=== PATIENT | female | born 1965 ===

== ENCOUNTER 2020-06-09 07:51 | Outpatient (REF) | payer MEDICAID, SELFPAY ==
--- NOTE | ~2020-06-09 | MM_ITS ---
EXAMINATION: MM SCREENING DIGITAL BREAST TOMOSYNTHESIS, BILATERAL CLINICAL INFORMATION: Screening. Asymptomatic. Prior outside mammography from [place] currently unavailable. Family history breast cancer, mother, sister, cousin. The lifetime risk of breast cancer based on the Tyrer-Cuzick Model is 18%. COMPARISON: None. TECHNIQUE: Digital breast tomosynthesis is performed in both the craniocaudal and mediolateral oblique views along with computer-aided detection (CAD). Synthesized 2D images are generated from the tomosynthesis. Additional bilateral MLO views are provided. FINDINGS: There are scattered areas of fibroglandular density (ACR BI-RADS breast composition Category b). There are scattered parenchymal densities. No significant mass or architectural abnormality. No abnormal calcifications. The axilla and skin contours are unremarkable. History of prior outside mammography from [place] was made available, we will make comparison in an additional report. MM/MM tomosynthesis screening BI IMPRESSION: No mammographic evidence of malignancy. ASSESSMENT: BI-RADS 2: Benign RECOMMENDATION: Routine annual mammography screening. This patient's information was entered into a reminder system with a target due date for their next mammogram.
== END 2020-06-09 07:52 | disposition home or self-care (01) ==
LOC: HO.MAMMO 07:51
PROVIDERS: PCP Internal Medicine; Visit Provider Internal Medicine
DX: Z12.31 Encounter for screening mammogram for malignant neoplasm of breast (principal)
CPT/HCPCS: 77063; 77067

== ENCOUNTER 2022-09-27 15:13 | Outpatient (AMB) | payer MEDICAID, SELFPAY ==
--- NOTE | 2022-09-27 15:14 | MHC.OFFVIS ---
Intake Vital Signs 09/27/22 15:17 Height 5 ft 2 in Weight 197 lb 8.547 oz BMI 36.1 BP 110/58 L Blood Pressure Location Rt brachial Position Sitting Pulse 96 Pulse Source Pulse Oximeter Intake Visit Reasons: DM2 Intake Note: Patient here today for Diabetes type 2 New patient visit. For eye care:04/2022 For foot care:None POC- 287 mg/dl A1c- 9.4% Pump Servicer Required: Yes Pump Servicer Language: Well Service Pump Equipment Operator Name: Betty medical staff Information Interpreted: non-clinical & clinical Accompanied by: Daughter Allergies No Known Allergies Allergy (Verified 09/27/22 15:19) Medication List - Last Reconciled 09/27/22 by Dileep Almazna MD amoxicillin 500 mg PO Q8H clotrimazole 1% 1 appful vaginal BEDTIME PRN dulaglutide (Trulicity) mg subcut QWEEK estradiol 0.01%(0.1mg/gram) grams vaginal flash glucose scanning reader ([employer] An 2 [place]) As directed flash glucose sensor (FreeStyle An 2 Sensor kit) As directed fluconazole 150 mg PO Q3D ibuprofen 800 mg PO Q8H PRN insulin lispro subcut ketoconazole 2% topical 2XW metformin 1,000 mg PO BID mirabegron ER (Myrbetriq) 25 mg PO DAILY nirmatrelvir-ritonavir 300 mg (150 mg x 2)-100 mg (Paxlovid) 3 ea PO quetiapine 100 mg PO BEDTIME quetiapine 25 mg PO BID quetiapine 200 mg PO BEDTIME sertraline 150 mg PO DAILY sucralfate (Carafate) 10 mL PO Q6H sulfamethoxazole-trimethoprim 800-160 mg 1 tab PO Q12H tolterodine ER 4 mg PO QAM trazodone 100 mg PO BID venlafaxine 37.5 mg PO BID venlafaxine ER 75 mg PO DAILY venlafaxine ER 37.5 mg PO DAILY HPI HPI Comments History of Present Illness Details 57 YO F who is seen in consultation for T2DM at the request of PCP. Initially diagnosed with T2DM in 6 yrs . Was initially started on treatment with []. Current regimen metformin 1000 mg b.i.d. Trulicity 4.5 mg Qwkly . Farxiga 10 mg QD Lantus 55 units Humalog 40 units before lunch and dinner An download shows she is using the sensor 61% of the time average glucose is 262 with G mi of 9.6% and variability of 32.2%. 20% in target range and 80% hyperglycemia with no hypoglycemia. Trend is towards post-breakfast hyperglycemia and post-dinner hypoglycemia Reports low sugars Yes .Before bedtime Treats lows with drink coke or candy . Checks sugar after to ensure it is rising. Treats 10 min after treating Most recent A1C 9.4 , . Family history of T2DM in mother sister Type 2 DM . Has eyes checked yearly, last eye exam 6 mos ago , [denies] retinopathy. Denies neuropathy,not, sees podiatry. Denies nephropathy, on MALLORY/ARB Lisinopril . UAC [] as measured on []. Not Has HLD,Not on statin. Denies CAD. Not Had diabetes education. [facility] Medical History (Updated 09/27/22 @ 15:24 by Dileep Almanza MD) Uncontrolled type 2 diabetes mellitus with hyperglycemia Surgical History (Updated 09/27/22 @ 15:29 by Sangeetha Duarte) History of section History of removal of cyst History of surgery Family History (Updated 09/27/22 @ 15:31 by Sangeetha Duarte) Mother Medical history unknown Father Cancer Social History Alcohol intake: never Patient Tobacco Use Status: Current someday Tobacco user Physical Exam Absence of Cushingoid features. Absence of acromegalic features. Neck exam reveals nl size thyroid about 15 gms. No thyroid nodules palpable. No carotid bruits present. Lungs CTA. Heart S1 S2, Reg R/R. No M/R/ G. Skin exam reveals absence of vitiligo or acanthosis nigricans. Abdominal exam reveals Soft NT/ND with NA BS. No organomegaly present. Neck Other: . Extrem Other: Visual exam of foot performed. No ulcerations or open lesions. No onchomycosis, no callouses.Pulses 2 + distally Sensation intact to monofilament exam. Vibratory sensation sensed is intact with 128 Hz tuning fork Results AMB Hemoglobin A1c AMB Hemoglobin A1c 9.4 % Last Edit by Sangeetha Duarte on 09/27/22 15:46 Assessment & Plan Assessment & Plan (1) Uncontrolled type 2 diabetes mellitus with hyperglycemia: Code(s): E11.65 - Type 2 diabetes mellitus with hyperglycemia Plan: This is a 57-year-old female with a history of type 2 diabetes being treated with with poor glycemic control and no known microvascular or macrovascular complications. The plan is change Trulicity to Ozempic for trial at this does not work or is not tolerated, try Mounjaro. Went over side effects of Ozempic and. Mounjaro including but not limited to nausea, vomiting risk of pancreatitis Will refer patient to Diabetes Education and yarn worker. Will check basic metabolic panel, lipid profile, microalbumin to creatinine ratio. Went over correlation of poor glycemic control to development and progression of complications Mounjaro 2.5 mg samples given to patient lot number [id number] C expiration date 02/21/2024 Orders: Orders Basic Metabolic Panel Today E11.65 - Type 2 diabetes mellitus with hyperglycemia Lipid Panel Today E11.65 - Type 2 diabetes mellitus with hyperglycemia Microalbumin, Random (w Creat) Today E11.65 - Type 2 diabetes mellitus with hyperglycemia AMB Hemoglobin A1c Today E11.65 - Type 2 diabetes mellitus with hyperglycemia Referrals Diabetes Education Referral E11.65 - Type 2 diabetes mellitus with hyperglycemia Nutrition/Dietitian Referral E11.65 - Type 2 diabetes mellitus with hyperglycemia Medications: New semaglutide (Ozempic) 0.5 mg (0.736 mL) subcut QWEEK 3 mL 5RF insulin lispro 45 units before breakfast, 45 units before lunch and 30 units before supper subcutaneously; 4 weeks 45 mL 4RF Coding Level of Care Code New Pt Level 5 (01278) Diagnoses Uncontrolled type 2 diabetes mellitus with hyperglycemia E11.65 Time Spent (min) 60 Comment A total of 60 minutes was spent reviewing chart, seeing patient and dictating
[2022-09-27 15:17] VITALS: BP 110/58; PULSE 96; BMI 36.1
[2022-09-27 15:40] LABS: Glucose, Whole Blood 287 mg/dL (60-115)
== END 2022-09-27 16:24 | disposition home or self-care (01) ==
PROVIDERS: PCP Internal Medicine; Visit Provider Internal Medicine Endocrinology, Diabetes & Metabolism
DX: E11.65 Type 2 diabetes mellitus with hyperglycemia (principal)
CPT/HCPCS: 99205

== ENCOUNTER → 2022-09-27 15:13 | Outpatient (BNVA) | payer MEDICAID, SELFPAY | PROVIDERS: PCP Internal Medicine; Visit Provider Internal Medicine Endocrinology, Diabetes & Metabolism | DX: E11.65 Type 2 diabetes mellitus with hyperglycemia (principal); Z79.4 Long term (current) use of insulin; Z83.3 Family history of diabetes mellitus | CPT/HCPCS: 82947; 83036; 99202 ==

== ENCOUNTER 2022-10-25 12:22 | Outpatient (REF) | payer MEDICAID, SELFPAY ==
--- NOTE | ~2022-10-25 | XR_ITS ---
EXAMINATION: XR SHOULDER, LEFT CLINICAL INFORMATION: Reason for Exam PAIN COMPARISON: None TECHNIQUE: Four views of the shoulder. FINDINGS: No acute fracture or dislocation. Mild degenerative changes of the acromioclavicular and glenohumeral joints with degenerative spurring. Calcification on the lateral aspect of the humeral head may reflect sequelae of calcific tendinitis. Soft tissues are unremarkable. XR/XR shoulder LT min 2V IMPRESSION: 1. No acute fracture or dislocation. 2. Mild degenerative changes of the shoulder. Calcification on the lateral aspect of the humeral head may reflect sequelae of calcific tendinitis.
[2022-10-25 13:05] LABS: MANUAL DIFF FLAG NO
[2022-10-25 13:30] LABS: Estimated Average Glucose 220 mg/dL; Hemoglobin A1c % 9.3 % (<6.0)
[2022-10-25 13:35] LABS: Basophils Percent Auto 0.8 % (0-2); Eosinophils Absolute Auto 0.1 X10*3/uL (0.0-0.4); Eosinophils Percent Auto 2.5 % (0-4); Hematocrit 40.3 % (37.0-47.0); Hemoglobin 13.4 g/dl (12.0-16.0); Imm Gran Abs Auto 0.02 X10*3/uL (0.00-0.03); Imm Gran Pct Auto 0.4 % (0.0-0.4); Lymphocytes Absolute Auto 1.7 X10*3/uL (1.2-4.9); Lymphocytes Percent Auto 32.9 % (20-40); Mean Corpuscular HGB Conc 33.3 g/dl (31.0-35.0); Mean Corpuscular Hemoglobin 29.5 pg (27.0-33.0); Mean Corpuscular Volume 88.8 fL (80.0-98.0); Mean Platelet Volume 11.1 fL (9.4-12.3); Monocytes Absolute Auto 0.3 X10*3/uL (0.1-1.2); Monocytes Percent Auto 5.2 % (2-11); Neutrophils Percent Auto 58.2 % (45-73); Platelet Count 225 X10*3/uL (160-400); Red Blood Count 4.54 X10*6/uL (4.20-5.50); Red Cell Distribution Width 11.9 % (11.0-16.0); White Blood Count 5.2 X10*3/uL (4.8-10.8)
[2022-10-25 13:59] LABS: Microalbum/Creatinine Ratio Ur 7.6 ug/mg cr (<30)
[2022-10-25 14:13] LABS: Alanine Aminotransferase 13 U/L (0-31); Albumin Level 4.1 g/dL (3.5-5.0); Alkaline Phosphatase 82 U/L (39-117); Anion Gap 12 (12-20); Aspartate Amino Transferase 12 U/L (5-31); Bilirubin Total 0.5 mg/dL (0.0-1.0); Blood Urea Nitrogen 11 mg/dL (9-16); Calcium 10.3 mg/dL (8.4-10.2); Carbon Dioxide 27 mmol/L (22-29); Chloride 103 mmol/L (96-108); Cholesterol 208 mg/dL (<200); Estimated Glomerular Filt Rate > 60; Glucose Random 260 mg/dL (60-115); HDL Cholesterol 49 mg/dL (>40); LDL Cholesterol Calculated 132 mg/dL (<100); Potassium 4.1 mmol/L (3.3-5.1); Sodium 138 mmol/L (135-145); Total Protein 7.3 g/dL (6.5-8.0); Triglycerides 137 mg/dL (<150)
[2022-10-25 14:19] LABS: TSH reflex Free T4 1.64 uIU/mL (0.32-4.0); Vitamin D 25-OH Total 23.8 ng/mL (>30)
[2022-10-25 14:36] LABS: Folate 12.4 ng/mL (> or = 4.0); Vitamin B12 349 pg/mL (200-900)
[2022-10-25 15:44] LABS: CT PCR NOT DETECTED (Not Detect.); NG PCR NOT DETECTED (Not Detect.)
[2022-10-26 09:25] LABS: ~HepC Num1 5.08 S/CO (0.00-0.79); ~Hepatitis C Antibody Reactive (Nonreactive)
[2022-10-26 09:26] LABS: HBS Num1 0.12 mIU/mL (0-7.99); HBc Num1 0.04 S/CO (0.00-0.79); HBsAGNum1 0.34 S/CO (0.00-0.99); HIV AB/AG Nonreactive (Nonreactive); HIV Num 1 0.05 S/CO (0.00-0.99); Hepatitis B Core Antibody Nonreactive (Nonreactive); Hepatitis B Surface Antigen Negative (Negative); ~Hepatitis B Surface Antibody NONREACTIVE (Nonreactive)
[2022-10-26 09:29] LABS: Syphilis Screen Nonreactive (Nonreactive)
[2022-10-30 17:24] LABS: HCV Log PCR <1.18 NOT DETECTED Log IU/mL (NOT DETECTED); HepC Viral Load <15 NOT DETECTED IU/mL (NOT DETECTED)
== END 2022-10-25 12:23 | disposition home or self-care (01) ==
LOC: HO.HHCL 12:22
PROVIDERS: Visit Provider Student in an Organized Health Care Education/Training Program
DX: Z00.00 Encounter for general adult medical examination without abnormal findings (principal); Z11.4 Encounter for screening for human immunodeficiency virus [HIV]; Z11.3 Encounter for screening for infections with a predominantly sexual mode of transmission; M25.512 Pain in left shoulder
CPT/HCPCS: 0353U; 73030; 80053; 80061; 82043; 82306; 82570; 82607; 82746; 83036; 84443; 85025; 86704; 86706; 86780; 86803; 87340; 87389; 87522

== ENCOUNTER 2022-10-29 14:44 | Outpatient (AMB) | payer MEDICAID, SELFPAY ==
--- NOTE | 2022-10-29 15:33 | A.OFFVIS_ITS ---
Intake Intake Visit Reasons: Type 2 DM w An Production Sound Mixer Required: Yes Production Sound Mixer Language: Correction Officer [place] [facility] [place] [facility] [place]ies No Known Allergies Allergy (Verified 09/27/22 15:19) HPI Comprehensive Diabetes Asmnt Most Recent Diabetes Results: Microalb/Creat Ratio 7.6 ug/mg cr (<30) 10/25/22 Cholesterol 208 mg/dL (<200) H 10/25/22 HDL Cholesterol 49 mg/dL (>40) 10/25/22 Triglycerides 137 mg/dL (<150) 10/25/22 Creatinine 0.71 mg/dL (0.5-1.4) 10/25/22 Blood Urea Nitrogen 11 mg/dL (9-16) 10/25/22 Sodium 138 mmol/L (135-145) 10/25/22 Potassium 4.1 mmol/L (3.3-5.1) 10/25/22 Chloride 103 mmol/L (96-108) 10/25/22 Carbon Dioxide 27 mmol/L (22-29) 10/25/22 Calcium 10.3 mg/dL (8.4-10.2) H 10/25/22 AST 12 U/L (5-31) 10/25/22 ALT 13 U/L (0-31) 10/25/22 Total Protein 7.3 g/dL (6.5-8.0) 10/25/22 Albumin 4.1 g/dL (3.5-5.0) 10/25/22 [facility] Medical History (Updated 09/27/22 @ 15:24 by Dileep Almanza MD) Uncontrolled type 2 diabetes mellitus with hyperglycemia Surgical History History of section History of removal of cyst History of surgery Family History Mother Medical history unknown Father Cancer Social History Alcohol intake: never Patient Tobacco Use Status: Current someday Tobacco user Assessment & Plan Assessment & Plan (1) Uncontrolled type 2 diabetes mellitus with hyperglycemia: Code(s): E11.65 - Type 2 diabetes mellitus with hyperglycemia Plan: Learning objectives: The patient was provided with verbal and written education on the following topics as outlined below. The patient met all learning objectives and was able to verbalize understanding and provide teach back of education topics discussed . The patient was provided with the opportunity to ask questions and all questions were answered. Patient Assessment Assess patient education level/literacy/barriers, patient expressed she was having difficulty following instructions on how to read food labels. Stating she found him confusing. Recommended patient to use measuring cups for carbohydrate portions of food instructed patient that if she uses half cup and cup measures she can not estimate the carbohydrate content most foods that contain carbohydrates with list of carbohydrates provided at visit Patient questions/concerns, patient reports she has been diagnosed with type 2 diabetes for approximately 6 years. Patient's last A1c 9.3% on 10/25/2022. Patient at visit with her daughter. What is Diabetes? Pathophysiology How the body produces and uses insulin Identify type of DM Risk factors Signs of Diabetes Brief overview of Diabetes Management Monitoring blood sugar Following a meal plan Regular exercise Maintaining a healthy weight Taking medication as needed Members of the care team (PCP, RN, MA, RD, CDE, director print) Blood glucose monitoring When/how often to test Target blood sugar ranges Patient ran out of glucose sensors, prescription for glucose sensor sent to [facility] at patient's request Introduction to Nutrition Importance of healthy diet in managing DM Diet is personalized to individual preference Review patient?s regular diet/food preferences Who prepares meals/does food shopping/ Dining out?/ Barriers? How diet effects glucose Eating 3 balanced meals a day with small, healthy snacks between meals Review food groups Carbohydrates: What is a carbohydrate/Which food/food groups are considered carbohydrates Effect of carbohydrates on blood glucose Portion sizes Reading food labels Basic carb counting (if applicable per nursing assessment) Plate method Meal planning Recommendations: Follow plate method, consistent carbs and read nutritional labels. Smart Goal: Patient will keep carbohydrate portions at meals from 30-45 g per meal Educational Materials: The patient was provided with the following written educational materials: Planning Healthy Meals Handout in Bahamian Patient Response to instructions: Comprehension of Instructions: Fair Readiness to make changes: Contemplation How confident they feel about making changes: Fair . Medications: Refilled flash glucose sensor (FreeStyle An 2 Sensor kit) As directed change every 14 days PRN 2 ea 5RF diabetes mellitus Patient Instructions: Seguimiento con un educador en diabetes en 4 meses despu?s de la siguiente A1c Incluir actividad diaria regular. ADA recomienda 30 minutos de ejercicio 5 d?as a la semana. P?rdida de peso, hable con el PCP o el cardi?logo antes de comenzar un nuevo plan. Mida el nivel de az?car en la afia seg?n las indicaciones; Ayuno y comida m?s vince de 2hpp. Observe las tendencias en los resultados. Utilice los resultados y eval?e c?mo los alimentos, la actividad f?mehnaz y los medicamentos afectan los resultados de az?car en la afia. Lleve el gluc?metro o CGM a la pr?xima visita. Conocer los medicamentos para la diabetes, marmolejo acci?n, los efectos secundarios, la eficacia, la toxicidad, la dosis prescrita, el momento y la frecuencia de administraci?n apropiados, el efecto de las dosis olvidadas y retrasadas y las instrucciones de almacenamiento, viaje y seguridad. T?cnicas de resoluci?n de problemas para el seguimiento de episodios de hipo/hiperglucemia y tratamientos. Coding Level of Care Code Est Pt Level 1 (59542) Diagnoses Uncontrolled type 2 diabetes mellitus with hyperglycemia E11.65
== END 2022-10-29 15:40 | disposition home or self-care (01) ==
PROVIDERS: PCP Internal Medicine; Visit Provider Registered Nurse Diabetes Educator
DX: E11.65 Type 2 diabetes mellitus with hyperglycemia (principal)

== ENCOUNTER → 2022-10-29 14:44 | Outpatient (BNVA) | payer MEDICAID, SELFPAY | PROVIDERS: PCP Internal Medicine; Visit Provider Registered Nurse Diabetes Educator | DX: E11.65 Type 2 diabetes mellitus with hyperglycemia (principal) | CPT/HCPCS: 99211 ==

== ENCOUNTER 2022-11-08 12:15 | Outpatient (REF) | payer MEDICAID, SELFPAY | END 2022-11-08 12:16 | disposition home or self-care (01) | LOC: HO.MAMMO 12:15 | PROVIDERS: PCP Student in an Organized Health Care Education/Training Program; Visit Provider Student in an Organized Health Care Education/Training Program | DX: Z12.31 Encounter for screening mammogram for malignant neoplasm of breast (principal) | CPT/HCPCS: 77063; 77067 ==

== ENCOUNTER → 2022-11-08 12:30 | Outpatient (BNV) | payer MEDICAID, SELFPAY | PROVIDERS: PCP Student in an Organized Health Care Education/Training Program; Visit Provider Radiology Diagnostic Radiology | DX: Z12.31 Encounter for screening mammogram for malignant neoplasm of breast (principal) | CPT/HCPCS: 77063; 77067 ==

== ENCOUNTER 2023-01-03 15:04 | Outpatient (AMB) | payer MEDICAID, SELFPAY ==
--- NOTE | 2023-01-03 15:06 | MHC.OFFVIS ---
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 Patient reports having a lot of pain in her bone not in her muscle. She states that her ROM is limited which causes her a lot of pain. Allergies No Known Allergies Allergy (Verified 01/03/23 15:07) HPI STOREROOM SUPERVISOR-Chronic Left shoulder pain HPI Details 57-year-old female, who is [place] speaking, presents in the office today, as a new patient, for left shoulder pain. She states her ROM is limited due to pain in the shoulder. She states she is not able to reach behind her back. She states she was diagnosed with bursitis when in [place]. She states she did not want to have cortisone injections but did attend physical therapy. Patient has a history significant for diabetes mellitus. [facility] Medical History (Updated 01/03/23 @ 15:15 by Mercedes Sage) Uncontrolled type 2 diabetes mellitus with hyperglycemia Surgical History History of section History of removal of cyst History of surgery Family History Mother Medical history unknown Father Cancer Social History Alcohol intake: never Patient Tobacco Use Status: Current someday Tobacco user Review of Systems Const All systems reviewed & are unremarkable except as noted in HPI and below Physical Exam Const General: cooperative and no acute distress Orientation/consciousness: patient oriented x3 Resp Effort & Inspection: normal respiratory effort and able to speak in complete sentences Cardio Peripheral pulses: Peripheral pulses 2+ throughout Skin General skin exam: no rashes or lesions noted Neuro General: patient oriented x3 Extrem Other: Left shoulder: Forward flexion to 90 degrees. Abduction to 45 degrees. Able to reach the greater trochanter. External rotation to neutral. Pain with cross-body reach. Unable to assess drop arm or empty can due to patient guarding and unwilling to perform ROM to adequately assess these specialty test. NVI. Assessment & Plan Assessment & Plan (1) Adhesive capsulitis of left shoulder: Code(s): M75.02 - Adhesive capsulitis of left shoulder (2) Diabetes mellitus: Code(s): E11.9 - Type 2 diabetes mellitus without complications (3) Calcific tendonitis of left shoulder: Code(s): M75.32 - Calcific tendinitis of left shoulder Plan Ms. Mcmahan is a 57-year-old female, who is [place] speaking, presents in the office today, as a new patient, for left shoulder pain. She states her ROM is limited due to pain in the shoulder. She states she is not able to reach behind her back. She states she was diagnosed with bursitis when in [place]. She states she did not want to have cortisone injections but did attend physical therapy. Patient has a history significant for diabetes mellitus. I have recommended that due to not wanting to try cortisone injections the next step would be physical therapy for ROM and inflammation management. Follow up will be in 6-8 weeks for a ROM check, or sooner if needed. X-rays of the left shoulder, obtained on 10/25/2022, revealed: 1. No acute fracture or dislocation. 2. Mild degenerative changes of the shoulder. Calcification on the lateral aspect of the humeral head may reflect sequelae of calcific tendinitis. Orders: Orders PT Evaluation and Treatment Today E11.65 - Type 2 diabetes mellitus with hyperglycemia, M75.02 - Adhesive capsulitis of left shoulder Patient Instructions: Scribed for Nga Cerda PA-C by Mercedes Sage medical logistics specialist, on 01/03/2023 at 3:05 pm, EST. Coding Level of Care Code New Pt Level 4 (19241) Diagnoses Adhesive capsulitis of left shoulder M75.02 Diabetes mellitus E11.9 Calcific tendonitis of left shoulder M75.32
== END 2023-01-03 15:20 | disposition home or self-care (01) ==
PROVIDERS: PCP Student in an Organized Health Care Education/Training Program; Visit Provider Physician Assistant
DX: M75.02 Adhesive capsulitis of left shoulder (principal); E11.9 Type 2 diabetes mellitus without complications; M75.32 Calcific tendinitis of left shoulder
CPT/HCPCS: 99204

== ENCOUNTER → 2023-01-03 15:04 | Outpatient (BNVA) | payer MEDICAID, SELFPAY | PROVIDERS: PCP Student in an Organized Health Care Education/Training Program; Visit Provider Physician Assistant | DX: M75.02 Adhesive capsulitis of left shoulder (principal); M75.32 Calcific tendinitis of left shoulder; E11.9 Type 2 diabetes mellitus without complications | CPT/HCPCS: 99212 ==

== ENCOUNTER 2023-02-13 11:39 | Outpatient (AMB) | payer MEDICAID, SELFPAY ==
--- NOTE | 2023-02-13 11:43 | MHC.AMNUTRGE ---
Intake VS Expanded 02/13/23 11:44 02/24/23 12:05 Height 5 ft 2 in 5 ft 2 in Weight 197 lb 8.547 oz 198 lb BMI 36.1 36.2 Intake Visit Reasons: dm/LVM Allergies No Known Allergies Allergy (Verified 01/03/23 15:07) HPI Nutrition Presentation Details Pt presents for MNT for T2DM, Pt was referred by Dr. Almanza, tool/die maker food frequency: Fish/seafood: 0x/wk dairy: no milk, no yogurts, pudding/ice cream. cheese 1-2 x/wk vegetables: 3 x/wk fruits: not including fruit drinks: >6 oz/d starches: complex/simple carb> 20 serving/d physical activity: 4 x/wk , 30-45 minutes ( ETOH: not including Smoking: denies (stopped 3 months ago) DRV-Coqybhy-Qs.Jeor Equation Height 5 ft 2 in Weight 198 lb Resting Metabolic Rate 1425.26 Calculated Activity Level Sedentary Calories Needed to Maintain Weight 1710.31 Diagnosis Nutrition problem #1 excessive energy intake As related to (etiology) #1 diagnosis As evidenced by (sign/symptom) #1 knowledge deficit of diet Most Recent Diabetes Results: Microalb/Creat Ratio 7.6 ug/mg cr (<30) 10/25/22 Cholesterol 208 mg/dL (<200) H 10/25/22 HDL Cholesterol 49 mg/dL (>40) 10/25/22 Triglycerides 137 mg/dL (<150) 10/25/22 Creatinine 0.71 mg/dL (0.5-1.4) 10/25/22 Blood Urea Nitrogen 11 mg/dL (9-16) 10/25/22 Sodium 138 mmol/L (135-145) 10/25/22 Potassium 4.1 mmol/L (3.3-5.1) 10/25/22 Chloride 103 mmol/L (96-108) 10/25/22 Carbon Dioxide 27 mmol/L (22-29) 10/25/22 Calcium 10.3 mg/dL (8.4-10.2) H 10/25/22 AST 12 U/L (5-31) 10/25/22 ALT 13 U/L (0-31) 10/25/22 Total Protein 7.3 g/dL (6.5-8.0) 10/25/22 Albumin 4.1 g/dL (3.5-5.0) 10/25/22 [facility] Medical History (Updated 01/03/23 @ 15:15 by Mercedes Sage) Uncontrolled type 2 diabetes mellitus with hyperglycemia Surgical History History of section History of removal of cyst History of surgery Family History Mother Medical history unknown Father Cancer Social History Alcohol intake: never Patient Tobacco Use Status: Current someday Tobacco user Assessment & Plan Assessment & Plan (1) Uncontrolled type 2 diabetes mellitus with hyperglycemia: Code(s): E11.65 - Type 2 diabetes mellitus with hyperglycemia Plan: Wt: 90 Kg (01/2023 ) Est kcal needs as per MSJ: 1700 (40% carb, 30% protein/fat) Est fluid needs as per 30 ml/d: 2700 Est prot per day as per 1 g/kg bw: 90 Recommend fiber intake : 8-10 g per day and gradually increase to 25-28 g per day for women and 35-38 g for men or as tolerated Recommend sodium intake per day : less than 1500 mg less than 2000 mg Educated patient on: ( R = reviewed V = verbalizes understanding N/R = needs review N/A = not applicable Food sources of carbohydrate, adequate serving sizes and its role in various health conditions: R Differences between complex carbohydrates a simple carbohydrates, role of fiber in diet: R Lean protein sources of foods: R Differences between types of fats and role in diet (mono on saturated fat fatty acids, saturated fatty acids, trans fats): N/R Food sources of sodium in salt and healthy modifications for heart health in kidney health: N/R Vitamins and minerals: R Healthy plate method concept: R Physical activity: Benefits a precaution: R Hypoglycemia protocol (rule of 15): N/R Dietary prevention of Hyperglycemia: R V Patient Instructions: Follow healthy plate method at dinner. Work on reducing your total carbohydrate at meal Reduce carbs to less than 45 g at breakfast and less than 60 at lunch /dinner keep hydrated by having water/low sugar beverages Coding Level of Care Code Nutr Indiv Intake (09934) Diagnoses Uncontrolled type 2 diabetes mellitus with hyperglycemia E11.65 Time Spent (min) 30
[2023-02-13 11:44] VITALS: BMI 36.1
[2023-02-24 12:05] VITALS: BMI 36.2
== END 2023-02-13 12:29 | disposition home or self-care (01) ==
PROVIDERS: PCP Student in an Organized Health Care Education/Training Program; Visit Provider Dietitian, Registered
DX: E11.65 Type 2 diabetes mellitus with hyperglycemia (principal)

== ENCOUNTER → 2023-02-13 11:39 | Outpatient (BNVA) | payer MEDICAID, SELFPAY | PROVIDERS: PCP Student in an Organized Health Care Education/Training Program; Visit Provider Dietitian, Registered | DX: E11.65 Type 2 diabetes mellitus with hyperglycemia (principal) | CPT/HCPCS: 97802 ==

== ENCOUNTER 2023-04-29 12:56 | Outpatient (AMB) | payer MEDICAID, SELFPAY ==
[2023-04-29 13:07] VITALS: BP 126/74; PULSE 71; BMI 35.5
--- NOTE | 2023-04-29 13:07 | MHC.OFFVIS ---
Intake Vital Signs 04/29/23 13:07 Height 5 ft 2 in Weight 194 lb 0.108 oz BMI 35.5 BP 126/74 Blood Pressure Location Lt brachial Position Sitting Pulse 71 Pulse Source Pulse Oximeter Intake Visit Reasons: Type 2 DM An-confirmed Intake Note: Patient present today to follow up on Type 2 Diabetes Mellitus. Patient receives DME supplies through: Pharmacy Last Diabetic Eye exam: 04/2023 Last Podiatry Visit: Doesn't have one. Random Glucose: 315 mg/dl HgA1C: 10.6% Consulting Utility Forester Required: Yes Consulting Utility Forester Language: Interventional Tech Name: Luis M medical staff Information Interpreted: non-clinical & clinical Accompanied by: Daughter Allergies No Known Allergies Allergy (Verified 04/29/23 13:14) Medication List - Last Reconciled 04/29/23 by Dileep Almanza MD amoxicillin 500 mg PO Q8H clotrimazole 1% 1 appful vaginal BEDTIME PRN estradiol 0.01%(0.1mg/gram) grams vaginal flash glucose scanning reader ([employer]Style An 2 [place]) As directed flash glucose sensor (FreeStyle An 2 Sensor kit) As directed change every 14 days fluconazole 150 mg PO Q3D ibuprofen 800 mg PO Q8H PRN insulin lispro 45 units before breakfast, 45 units before lunch and 30 units before supper subcutaneously; 4 weeks ketoconazole 2% topical 2XW metformin 1,000 mg PO BID mirabegron ER (Myrbetriq) 25 mg PO DAILY nirmatrelvir-ritonavir 300 mg (150 mg x 2)-100 mg (Paxlovid) 3 ea PO quetiapine 100 mg PO BEDTIME quetiapine 25 mg PO BID quetiapine 200 mg PO BEDTIME sertraline 150 mg PO DAILY sucralfate (Carafate) 10 mL PO Q6H sulfamethoxazole-trimethoprim 800-160 mg 1 tab PO Q12H tirzepatide (Mounjaro) 2.5 mg (0.5 mL) subcut QWEEK tolterodine ER 4 mg PO QAM trazodone 100 mg PO BID venlafaxine 37.5 mg PO BID venlafaxine ER 75 mg PO DAILY venlafaxine ER 37.5 mg PO DAILY HPI HPI Comments History of Present Illness Details 58 YO F who is seen in consultation for T2DM at the request of PCP. Initially diagnosed with T2DM in 6 yrs . Was initially started on treatment with []. Current regimen metformin 1000 mg b.i.d. Mounjaro 2.5 mg Qwkly Farxiga 10 mg QD Lantus 52 units Humalog 40 units before lunch and dinner Unfortunately, patient did not bring sensor or glucometer follow-up visit Reports low sugars Yes .Before bedtime Treats lows with drink coke or candy . Checks sugar after to ensure it is rising. Treats 10 min after treating Family history of T2DM in mother sister Type 2 DM . Has eyes checked yearly, last eye exam 1 mo ago , [denies] retinopathy. Denies neuropathy,not, sees podiatry. Denies nephropathy, on MALLORY/ARB Lisinopril . UAC [] as measured on []. Not Has HLD,Not on statin. Denies CAD. Not Had diabetes education. [facility] Medical History (Updated 01/03/23 @ 15:15 by Mercedes Sage) Uncontrolled type 2 diabetes mellitus with hyperglycemia Surgical History History of section History of removal of cyst History of surgery Family History Mother Medical history unknown Father Cancer Social History Alcohol intake: never Patient Tobacco Use Status: Current someday Tobacco user Physical Exam Vital Signs: Last Vital Signs Pulse 71 04/29/23 13:07 BP 126/74 04/29/23 13:07 BMI result Body Mass Index 35.5 Absence of Cushingoid features. Absence of acromegalic features. Neck exam reveals nl size thyroid about 15 gms. No thyroid nodules palpable. No carotid bruits present. Lungs CTA. Heart S1 S2, Reg R/R. No M/R/ G. Skin exam reveals absence of vitiligo or acanthosis nigricans. Abdominal exam reveals Soft NT/ND with NA BS. No organomegaly present. Neck Other: . Extrem Other: Visual exam of foot performed. No ulcerations or open lesions. No onchomycosis, no callouses.Pulses 2 + distally Sensation intact to monofilament exam. Vibratory sensation sensed is intact with 128 Hz tuning fork Results AMB Hemoglobin A1c AMB Hemoglobin A1c 10.6 % Last Edit by CHAKA Jenkins on 04/29/23 13:34 Results Reviewed Results Reviewed: Laboratory Last Values Glucose (Clinic) 315 mg/dL (60-115) H 04/29/23 13:16 Assessment & Plan Assessment & Plan (1) Uncontrolled type 2 diabetes mellitus with hyperglycemia: Code(s): E11.65 - Type 2 diabetes mellitus with hyperglycemia Plan: This is a 57-year-old female with a history of type 2 diabetes being treated with metformin,Mounjaro , Farxiga and basal-bolus insulin with poor glycemic control and no known microvascular or macrovascular complications. The plan is increase the Mounjaro to 5 mg Q weekly. Patient was instructed to bring her sensor to follow-up appointments. She will meet with the clinical unit educator to further adjust her regimen and bring the sensor with her. She did not know the dose of her statin and will call us with the dose so we can adjusted as her LDL cholesterol is high Orders: Orders AMB Hemoglobin A1c Today E11.65 - Type 2 diabetes mellitus with hyperglycemia, Z13.9 - Encounter for screening, unspecified Medications: New tirzepatide (Mounjaro) 5 mg (0.5 mL) subcut QWEEK 2 mL 5RF Discontinued tirzepatide (Mounjaro) Discontinued Reason: Doctor's Order 2.5 mg (0.5 mL) subcut QWEEK 2 mL 4RF Coding Level of Care Code Est Pt Level 4 (27287) Diagnoses Uncontrolled type 2 diabetes mellitus with hyperglycemia E11.65
[2023-04-29 13:20] LABS: Glucose, Whole Blood 315 mg/dL (60-115)
== END 2023-04-29 13:34 | disposition home or self-care (01) ==
PROVIDERS: PCP Student in an Organized Health Care Education/Training Program; Visit Provider Internal Medicine Endocrinology, Diabetes & Metabolism
DX: Z13.9 Encounter for screening, unspecified (principal); E11.65 Type 2 diabetes mellitus with hyperglycemia
CPT/HCPCS: 99214

== ENCOUNTER → 2023-04-29 12:56 | Outpatient (BNVA) | payer MEDICAID, SELFPAY | PROVIDERS: PCP Student in an Organized Health Care Education/Training Program; Visit Provider Internal Medicine Endocrinology, Diabetes & Metabolism | DX: E11.65 Type 2 diabetes mellitus with hyperglycemia (principal); Z79.84 Long term (current) use of oral hypoglycemic drugs; Z79.4 Long term (current) use of insulin | CPT/HCPCS: 82947; 83036; 99212 ==

== ENCOUNTER 2023-05-16 11:13 | Outpatient (AMB) | payer MEDICAID, SELFPAY ==
--- NOTE | 2023-05-16 11:14 | MHC.OFFVIS ---
Intake Intake Visit Reasons: OV - left shoulder tendonitis Intake Note: Aminata is a 57 year old right hand dominant female who presents today for a ROM check of her left shoulder tendonitis. Patient reports her shoulder is feeling the same in pain. She states that she is going to start P.T. in May 25. Patient doesn't want injections. Allergies No Known Allergies Allergy (Verified 05/16/23 11:18) HPI OV - left shoulder tendonitis HPI Details 58-year-old right hand dominant female, who is Mongolian speaking, presents in the office today for a follow up of left shoulder pain. I last saw the patient in the office on 01/03/2023. At that time the patient was referred to PT for ROM and inflammation management. While in the office today the patient reports no change in her pain. She is scheduled to begin PT on 05/26/2023. She is not interested in cortisone injections at this time. Patient has a significant medical history of diabetes mellitus. [facility] Medical History (Updated 01/03/23 @ 15:15 by Mercedes Sage) Uncontrolled type 2 diabetes mellitus with hyperglycemia Surgical History History of section History of removal of cyst History of surgery Family History Mother Medical history unknown Father Cancer Social History Alcohol intake: never Patient Tobacco Use Status: Current someday Tobacco user Review of Systems Const All systems reviewed & are unremarkable except as noted in HPI and below Physical Exam Const General: cooperative, healthy appearing and no acute distress Resp Effort & Inspection: normal respiratory effort and able to speak in complete sentences Cardio Rate: regular rate Peripheral pulses: Peripheral pulses 2+ throughout GI Palpation (GI): Soft to palpation Skin Lesions: no lesions Rashes: no rashes Extrem Other: Left shoulder: Forward flexion to 90 degrees. Abduction to 45 degrees. Able to reach the greater trochanter. External rotation to neutral. Pain with cross-body reach. Unable to assess drop arm or empty can due to patient guarding and unwilling to perform ROM to adequately assess these specialty test. NVI. Assessment & Plan Assessment & Plan (1) Adhesive capsulitis of left shoulder: Code(s): M75.02 - Adhesive capsulitis of left shoulder (2) Calcific tendonitis of left shoulder: Code(s): M75.32 - Calcific tendinitis of left shoulder (3) Uncontrolled type 2 diabetes mellitus with hyperglycemia: Code(s): E11.65 - Type 2 diabetes mellitus with hyperglycemia Plan Ms. Mcmahan is a 58-year-old right hand dominant female, who is Mongolian speaking, presents in the office today for a follow up of left shoulder pain. I last saw the patient in the office on 01/03/2023. At that time the patient was referred to PT for ROM and inflammation management. While in the office today the patient reports no change in her pain. She is scheduled to begin PT on 05/26/2023. She is not interested in cortisone injections at this time. Patient has a significant medical history of diabetes mellitus. Discussed the importance of physical therapy to work on ROM and inflammation management with the patient. She is scheduled to begin PT on 05/26/2023. Follow up will be in 6 weeks for a ROM check, or sooner if needed. Patient Instructions: Scribed by Mercedes Sage medical records custodian, for Nga Cerda PA-C on 05/16/2023 at 11:15 am, EST. Coding Level of Care Code Est Pt Level 3 (15373) Diagnoses Adhesive capsulitis of left shoulder M75.02 Calcific tendonitis of left shoulder M75.32 Uncontrolled type 2 diabetes mellitus with hyperglycemia E11.65
== END 2023-05-16 11:37 | disposition home or self-care (01) ==
PROVIDERS: PCP Student in an Organized Health Care Education/Training Program; Visit Provider Physician Assistant
DX: M75.02 Adhesive capsulitis of left shoulder (principal); M75.32 Calcific tendinitis of left shoulder; E11.65 Type 2 diabetes mellitus with hyperglycemia
CPT/HCPCS: 99213

== ENCOUNTER → 2023-05-16 11:13 | Outpatient (BNVA) | payer MEDICAID, SELFPAY | PROVIDERS: PCP Student in an Organized Health Care Education/Training Program; Visit Provider Physician Assistant | DX: M75.02 Adhesive capsulitis of left shoulder (principal); M75.32 Calcific tendinitis of left shoulder | CPT/HCPCS: 99212 ==

== ENCOUNTER 2023-05-20 13:51 | Outpatient (AMB) | payer MEDICAID, SELFPAY ==
--- NOTE | 2023-05-20 14:19 | MHC.AMDMED ---
Intake Intake Visit Reasons: f/u Type 2 DM/CONFIRMED Oxygraph Operator Required: Yes Oxygraph Operator Language: Industrial Insulator [place] [facility] [place]ompanied by: Daughter Allergies No Known Allergies Allergy (Verified 05/16/23 11:18) HPI Comprehensive Diabetes Asmnt Most Recent Diabetes Results: Microalb/Creat Ratio 7.6 ug/mg cr (<30) 10/25/22 Cholesterol 208 mg/dL (<200) H 10/25/22 HDL Cholesterol 49 mg/dL (>40) 10/25/22 Triglycerides 137 mg/dL (<150) 10/25/22 Creatinine 0.71 mg/dL (0.5-1.4) 10/25/22 Blood Urea Nitrogen 11 mg/dL (9-16) 10/25/22 Sodium 138 mmol/L (135-145) 10/25/22 Potassium 4.1 mmol/L (3.3-5.1) 10/25/22 Chloride 103 mmol/L (96-108) 10/25/22 Carbon Dioxide 27 mmol/L (22-29) 10/25/22 Calcium 10.3 mg/dL (8.4-10.2) H 10/25/22 AST 12 U/L (5-31) 10/25/22 ALT 13 U/L (0-31) 10/25/22 Total Protein 7.3 g/dL (6.5-8.0) 10/25/22 Albumin 4.1 g/dL (3.5-5.0) 10/25/22 [facility] Medical History (Updated 01/03/23 @ 15:15 by Mercedes Sage) Uncontrolled type 2 diabetes mellitus with hyperglycemia Surgical History History of section History of removal of cyst History of surgery Family History Mother Medical history unknown Father Cancer Social History Alcohol intake: never Patient Tobacco Use Status: Current someday Tobacco user Assessment & Plan Assessment & Plan (1) Uncontrolled type 2 diabetes mellitus with hyperglycemia: Code(s): E11.65 - Type 2 diabetes mellitus with hyperglycemia Plan: Learning objectives: The patient was provided with verbal and written education on the following topics as outlined below. The patient met all learning objectives and was able to verbalize understanding and provide teach back of education topics discussed . The patient was provided with the opportunity to ask questions and all questions were answered. Patient Assessment Although patient is wearing a sensor she is not scanning, there is only a 4 hours worth of data in the last 14 days on An 2 download. Discussed with patient the importance of scanning sensor every 4-6 hours while awake Patient also reports she is only taking 6 units of Humalog before meals, reports this was instruction from her PCP Prescription was written for Humalog 45 before breakfast and lunch-30 before supper Patient's last A1c on 04/29/2023 was 10.6% Patient is also currently taking 1 jar 5 mg weekly Metformin 2000 mg b.i.d. The plan is to have patient scan sensor every 4-6 hours Return in 2 weeks for glucose review Blood glucose monitoring When/how often to test Target blood sugar ranges Introduction to Nutrition Importance of healthy diet in managing DM Diet is personalized to individual preference Review patient?s regular diet/food preferences Who prepares meals/does food shopping/ Dining out?/ Barriers? How diet effects glucose Eating 3 balanced meals a day with small, healthy snacks between meals Review food groups Carbohydrates: What is a carbohydrate/Which food/food groups are considered carbohydrates Effect of carbohydrates on blood glucose Portion sizes Reading food labels Basic carb counting (if applicable per nursing assessment) Plate method Meal planning Recommendations: Follow plate method, consistent carbs and read nutritional labels. Smart Goal: Patient will identify foods in her current diet diet contain carbohydrate Educational Materials: The patient was provided with the following written educational materials: Planning Healthy Meals Handout Patient Response to instructions: Comprehension of Instructions: Fair Readiness to make changes: Contemplation How confident they feel about making changes: Fair Coding Level of Care Code Est Pt Level 1 (82514) Diagnoses Uncontrolled type 2 diabetes mellitus with hyperglycemia E11.65
== END 2023-05-20 14:21 | disposition home or self-care (01) ==
PROVIDERS: PCP Student in an Organized Health Care Education/Training Program; Visit Provider Registered Nurse Diabetes Educator
DX: E11.65 Type 2 diabetes mellitus with hyperglycemia (principal)

== ENCOUNTER → 2023-05-20 13:51 | Outpatient (BNVA) | payer MEDICAID, SELFPAY | PROVIDERS: PCP Student in an Organized Health Care Education/Training Program; Visit Provider Registered Nurse Diabetes Educator | DX: E11.65 Type 2 diabetes mellitus with hyperglycemia (principal) | CPT/HCPCS: 99211 ==

== ENCOUNTER 2023-06-04 14:05 | Outpatient (AMB) | payer MEDICAID, SELFPAY ==
--- NOTE | 2023-06-04 14:58 | MHC.AMDMED ---
Intake Intake Visit Reasons: T2DM/CONFIRMED Turret Lathe Operator Required: Yes Turret Lathe Operator Name: [facility] [place] Information Interpreted: non-clinical & clinical Accompanied by: Daughter Allergies No Known Allergies Allergy (Verified 05/16/23 11:18) HPI Comprehensive Diabetes Asmnt Most Recent Diabetes Results: Microalb/Creat Ratio 7.6 ug/mg cr (<30) 10/25/22 Cholesterol 208 mg/dL (<200) H 10/25/22 HDL Cholesterol 49 mg/dL (>40) 10/25/22 Triglycerides 137 mg/dL (<150) 10/25/22 Creatinine 0.71 mg/dL (0.5-1.4) 10/25/22 Blood Urea Nitrogen 11 mg/dL (9-16) 10/25/22 Sodium 138 mmol/L (135-145) 10/25/22 Potassium 4.1 mmol/L (3.3-5.1) 10/25/22 Chloride 103 mmol/L (96-108) 10/25/22 Carbon Dioxide 27 mmol/L (22-29) 10/25/22 Calcium 10.3 mg/dL (8.4-10.2) H 10/25/22 AST 12 U/L (5-31) 10/25/22 ALT 13 U/L (0-31) 10/25/22 Total Protein 7.3 g/dL (6.5-8.0) 10/25/22 Albumin 4.1 g/dL (3.5-5.0) 10/25/22 [facility] Medical History (Updated 01/03/23 @ 15:15 by Mercedes Sage) Uncontrolled type 2 diabetes mellitus with hyperglycemia Surgical History History of section History of removal of cyst History of surgery Family History Mother Medical history unknown Father Cancer Social History Alcohol intake: never Patient Tobacco Use Status: Current someday Tobacco user Assessment & Plan Assessment & Plan (1) Uncontrolled type 2 diabetes mellitus with hyperglycemia: Code(s): E11.65 - Type 2 diabetes mellitus with hyperglycemia Plan: Personal Continuous Glucose Monitor: Patients CGM information reviewed Reviewed patient's sensor data: Hypoglycemia: ? 0% Hyperglycemia:? 92% Time in Range:? 8% Average glucose for the last 2 weeks?231 mg/dL Patient has multiple gaps in glucose data, from not scanning sensor frequently. Instructed patient to scan An 2 sensor every 4-6 hours while awake to capture maximum glucose data Patient's glucose have improved however would recommend patient increase Mounjaro dose from 5 mg to 7.5 mg, request sent to Dr. Almanza for new prescription Patient reports her appetite, is smaller since starting Mounjaro Patient is also taking Lantus 52 units daily Sliding scale for pre meal insulin Metformin 2000 mg b.i.d. Patient denies hypoglycemia Reviewed how to interpret trend arrows Reminded patient that to check finger sticks if symptoms do not match sensor reading. Discussed lag time between finger stick and sensor data.? Patient able to insert sensor independently at home without issue.? Medications: Discontinued tirzepatide (Mounjaro) Discontinued Reason: Doctor's Order 5 mg (0.5 mL) subcut QWEEK 2 mL 5RF Patient Instructions: Increase Mounjaro dose from 5 mg to 7.5 mg Scan sensor every 4-6 hours while awake Follow-up with process machine operator in 2 months Coding Level of Care Code Est Pt Level 1 (74168) Diagnoses Uncontrolled type 2 diabetes mellitus with hyperglycemia E11.65
== END 2023-06-04 15:09 | disposition home or self-care (01) ==
PROVIDERS: PCP Student in an Organized Health Care Education/Training Program; Visit Provider Registered Nurse Diabetes Educator
DX: E11.65 Type 2 diabetes mellitus with hyperglycemia (principal)

== ENCOUNTER → 2023-06-04 14:05 | Outpatient (BNVA) | payer MEDICAID, SELFPAY | PROVIDERS: PCP Student in an Organized Health Care Education/Training Program; Visit Provider Registered Nurse Diabetes Educator | DX: E11.65 Type 2 diabetes mellitus with hyperglycemia (principal); Z79.4 Long term (current) use of insulin; Z79.84 Long term (current) use of oral hypoglycemic drugs | CPT/HCPCS: 99211 ==

== ENCOUNTER 2023-08-27 11:28 | Outpatient (REF) | payer MEDICAID, SELFPAY ==
[2023-08-27 12:58] LABS: Cholesterol 194 mg/dL (<200); HDL Cholesterol 47 mg/dL (>40); LDL Cholesterol Calculated 120 mg/dL (<100); Triglycerides 139 mg/dL (<150)
== END 2023-08-27 11:29 | disposition home or self-care (01) ==
LOC: HO.LAB 11:28
PROVIDERS: PCP Student in an Organized Health Care Education/Training Program; Visit Provider Internal Medicine Endocrinology, Diabetes & Metabolism
DX: E78.5 Hyperlipidemia, unspecified (principal)
CPT/HCPCS: 36415; 80061

== ENCOUNTER 2023-09-01 12:00 | Outpatient (AMB) | payer MEDICAID, SELFPAY ==
[2023-09-01 13:01] VITALS: BP 120/58; PULSE 70; BMI 35.4
--- NOTE | 2023-09-01 13:01 | MHC.OFFVIS ---
Vital Signs 09/01/23 13:01 Height 5 ft 2 in Weight 193 lb 9.054 oz BMI 35.4 BP 120/58 L Blood Pressure Location Lt brachial Position Sitting Pulse 70 Pulse Source Pulse Oximeter Intake Visit Reasons: DM 2/CONFIRMED Intake Note: Patient presents today to follow up on D2MT. Last Diabetic Eye exam: 03/2023 Last Podiatry Visit: Doesn't have one Random Glucose: 162 mg/dl HgA1c: 9.4% Form Setter Required: Yes Form Setter Language: Bruneian Information Interpreted: non-clinical & clinical Accompanied by: Daughter Allergies No Known Allergies Allergy (Verified 09/01/23 13:08) Medication List - Last Reconciled 09/01/23 by Melanie Boo PA-C atorvastatin 80 mg PO DAILY clotrimazole 1% 1 appful vaginal BEDTIME PRN estradiol 0.01%(0.1mg/gram) grams vaginal ezetimibe (Zetia) 10 mg PO DAILY flash glucose scanning reader ([employer]Style An 2 [place]) As directed flash glucose sensor (FreeStyle An 2 Sensor kit) As directed change every 14 days fluconazole 150 mg PO Q3D ibuprofen 800 mg PO Q8H PRN insulin lispro 45 units before breakfast, 45 units before lunch and 30 units before supper subcutaneously; 4 weeks ketoconazole 2% topical 2XW metformin 1,000 mg PO BID mirabegron ER (Myrbetriq) 25 mg PO DAILY quetiapine 100 mg PO BEDTIME quetiapine 25 mg PO BID quetiapine 200 mg PO BEDTIME sertraline 150 mg PO DAILY sucralfate (Carafate) 10 mL PO Q6H tirzepatide (Mounjaro) 7.5 mg (0.5 mL) subcut QWEEK tolterodine ER 4 mg PO QAM trazodone 100 mg PO BID venlafaxine 37.5 mg PO BID venlafaxine ER 75 mg PO DAILY venlafaxine ER 37.5 mg PO DAILY HPI HPI DM 2/CONFIRMED: Details: Patient is a 58-year-old female with a significant past medical history of anxiety, depression, overactive bladder, hyperlipidemia, and diabetes presenting today for a diabetic follow-up. Last saw Dr. Almanza in April. Follow diabetic Education in May. retail coordinator Catherine [id number] used today and then partway through visit [facility] gas meter checker Lyly came to help with translation. Daughter was present for today's visit as well. Her A1c today is 9.4. She is currently on Mounjaro 7.5 mg weekly, metformin 1000 mg twice a day, lispro 45 with breakfast, 45 u with lunch, 30 u with dinner, lantus 52 units nightly. Shes states since taking the higher dosage of the mounjaro her numbers have improved. she states that she is now about 160-190 in the morning. She does not check her sugars more than a few times a day often. CGM- active 41%, average glucose 188 glucose variability 18%. Very high 6%, high 50%, in range 44%. No hypoglycemic events. She is not on an MALLORY-inhibitor. Cholesterol is controlled with atorvastatin 80 mg. she states that if she were to get a low blood sugar she would drink soda or have candy. [facility] Medical History (Updated 09/01/23 @ 13:21 by Melanie Boo PA-C) Uncontrolled type 2 diabetes mellitus with hyperglycemia Surgical History History of section History of removal of cyst History of surgery Family History Mother Medical history unknown Father Cancer Social History (System 07/29/23 @ 10:48 by Lyly Cisneros) Alcohol intake: never Patient Tobacco Use Status: Current someday Tobacco user Physical Exam Vital Signs: Last Vital Signs Pulse 70 09/01/23 13:01 BP 120/58 L 09/01/23 13:01 BMI result Body Mass Index 35.4 Const Orientation/consciousness: patient oriented x3 Neck Neck: Yes no lymphadenopathy Thyroid: Thyroid normal Carotids: no bruits Resp Auscultation: clear to auscultation bilaterally Cardio Rate: regular rate Rhythm: regular rhythm Heart sounds: S1 normal heart sound present and S2 normal heart sound present Peripheral pulses: dorsalis pedis present Neuro General: patient oriented x3, gait normal and no focal motor deficits Extrem Other: Monofilament sensation intact bilaterally. Vibratory sensation intact bilaterally. Skin intact. General: Yes normal to inspection Results AMB Hemoglobin A1c AMB Hemoglobin A1c 9.4 % Last Edit by CHAKA Jenkins on 09/01/23 13:19 Results Reviewed Results Reviewed: Laboratory Last Values Glucose (Clinic) 162 mg/dL (60-115) H 09/01/23 13:09 Hgb A1c (Clinic) 9.4 % (4.0-6.0) H 09/01/23 13:13 Laboratory Tests 10/25/22 04/29/23 08/27/23 12:29 13:19 11:42 Sodium 138 Potassium 4.1 Chloride 103 Carbon Dioxide 27 Anion Gap 12 BUN 11 Creatinine 0.71 Estimated GFR > 60 Hgb A1c (Clinic) 10.6 H Hemoglobin A1c % 9.3 H Triglycerides 139 Cholesterol 194 LDL Cholesterol, Calc 120 H HDL Cholesterol 47 Assessment & Plan Assessment & Plan (1) Uncontrolled type 2 diabetes mellitus with hyperglycemia: Code(s): E11.65 - Type 2 diabetes mellitus with hyperglycemia Category: Medical Plan: Increase mounjaro to 10 mg weekly, switch from Lantus to Toujeo, switch from freestyle An 2 to the freestyle An 3. Glucose tabs ordered. Rule of 15 discussed. Advised short-term follow-up in 1 month. Sooner if needed. Signs and symptoms of hyper and hypoglycemia that would require emergent medical treatment were discussed. (2) Hyperlipidemia: Code(s): E78.5 - Hyperlipidemia, unspecified Category: Medical Plan: Continue current regimen. Encouraged low-fat diet as not quite at goal. More than 1 hour was spent in chart review and [id number] time today discussing diabetes, complications associated with diabetes including peripheral neuropathy, vision changes, increased risk of stroke, heart disease, fatty liver, increased risk of complications including amputations in blindness. We discussed dietary changes. Orders: Orders AMB Hemoglobin A1c Today E11.65 - Type 2 diabetes mellitus with hyperglycemia, Z13.9 - Encounter for screening, unspecified Medications: New blood-glucose sensor (FreeStyle An 3 Sensor device) Apply every 14 days As directed 2 ea 11RF E11.9 - Type 2 diabetes mellitus without complications, Z79.4 - nursing home (current) use of insulin tirzepatide (Mounjaro) 10 mg (0.5 mL) subcut QWEEK 2 mL 11RF insulin glargine U-300 conc (Toujeo Max U-300 SoloStar) 50 units (0.1667 mL) subcut DAILY 6 mL 3RF blood-glucose meter,continuous (FreeStyle An 3 [place]) As directed 1 ea 0RF blood-glucose sensor (FreeStyle An 3 Sensor device) Apply every 14 days As directed 2 ea 11RF E11.9 - Type 2 diabetes mellitus without complications, Z79.4 - nursing home (current) use of insulin glucose (Dex4 Glucose) until symptoms of low blood sugar are controlled 16 grams (4 x 4 gram) PO Q15M PRN 100 tabs 0RF hypoglycemia blood-glucose meter,continuous (FreeStyle An 3 [place]) As directed 1 ea 0RF insulin glargine U-300 conc (Toujeo Max U-300 SoloStar) 50 units (0.1667 mL) subcut DAILY 6 mL 3RF glucose (Dex4 Glucose) until symptoms of low blood sugar are controlled 16 grams (4 x 4 gram) PO Q15M PRN 100 tabs 0RF hypoglycemia tirzepatide (Mounjaro) 10 mg (0.5 mL) subcut QWEEK 2 mL 11RF Discontinued flash glucose sensor (FreeStyle An 2 Sensor kit) Discontinued Reason: Doctor's Order As directed change every 14 days PRN 2 ea 5RF diabetes mellitus tirzepatide (Mounjaro) Discontinued Reason: Doctor's Order 7.5 mg (0.5 mL) subcut QWEEK 2 mL 5RF Coding Level of Care Code Est Pt Level 5 (25745) Diagnoses Uncontrolled type 2 diabetes mellitus with hyperglycemia E11.65 Hyperlipidemia E78.5
[2023-09-01 13:15] LABS: Glucose, Whole Blood 162 mg/dL (60-115)
== END 2023-09-01 13:49 | disposition home or self-care (01) ==
PROVIDERS: PCP Student in an Organized Health Care Education/Training Program; Visit Provider Physician Assistant
DX: Z13.9 Encounter for screening, unspecified (principal); E11.65 Type 2 diabetes mellitus with hyperglycemia; E78.5 Hyperlipidemia, unspecified
CPT/HCPCS: 99215

== ENCOUNTER → 2023-09-01 12:00 | Outpatient (BNVA) | payer MEDICAID, SELFPAY | PROVIDERS: PCP Student in an Organized Health Care Education/Training Program; Visit Provider Physician Assistant | DX: E11.65 Type 2 diabetes mellitus with hyperglycemia (principal); E78.5 Hyperlipidemia, unspecified | CPT/HCPCS: 82947; 83036; 99212 ==

== ENCOUNTER 2023-09-02 16:49 | Outpatient (REF) | payer MEDICAID, SELFPAY ==
[2023-09-08 12:59] LABS: HPV mRNA E6/E7 Not Detected (Not Detected)
== END 2023-09-02 16:50 | disposition home or self-care (01) ==
LOC: HO.LNP 16:49
PROVIDERS: Visit Provider Advanced Practice Midwife
DX: Z01.419 Encounter for gynecological examination (general) (routine) without abnormal findings (principal)
CPT/HCPCS: 87624; 88175

== ENCOUNTER 2023-09-04 15:14 | Outpatient (AMB) | payer MEDICAID, SELFPAY ==
--- NOTE | 2023-09-04 15:44 | A.OFFVIS_ITS ---
Intake Intake Visit Reasons: T2DM Tool/Die Maker Required: Yes Tool/Die Maker Language: Facilities And Grounds Director Name: Dagoberto Juventino Accompanied by: Daughter Allergies No Known Allergies Allergy (Verified 09/01/23 13:08) HPI Comprehensive Diabetes Asmnt Most Recent Diabetes Results: Microalb/Creat Ratio 7.6 ug/mg cr (<30) 10/25/22 Cholesterol 194 mg/dL (<200) 08/27/23 HDL Cholesterol 47 mg/dL (>40) 08/27/23 Triglycerides 139 mg/dL (<150) 08/27/23 Creatinine 0.71 mg/dL (0.5-1.4) 10/25/22 Blood Urea Nitrogen 11 mg/dL (9-16) 10/25/22 Sodium 138 mmol/L (135-145) 10/25/22 Potassium 4.1 mmol/L (3.3-5.1) 10/25/22 Chloride 103 mmol/L (96-108) 10/25/22 Carbon Dioxide 27 mmol/L (22-29) 10/25/22 Calcium 10.3 mg/dL (8.4-10.2) H 10/25/22 AST 12 U/L (5-31) 10/25/22 ALT 13 U/L (0-31) 10/25/22 Total Protein 7.3 g/dL (6.5-8.0) 10/25/22 Albumin 4.1 g/dL (3.5-5.0) 10/25/22 [facility] Medical History (Updated 09/01/23 @ 13:21 by Melanie Boo PA-C) Uncontrolled type 2 diabetes mellitus with hyperglycemia Surgical History History of section History of surgery History of removal of cyst Family History Mother Medical history unknown Father Cancer Social History Alcohol intake: never Patient Tobacco Use Status: Current someday Tobacco user Assessment & Plan Assessment & Plan (1) Uncontrolled type 2 diabetes mellitus with hyperglycemia: Code(s): E11.65 - Type 2 diabetes mellitus with hyperglycemia Plan: Learning objectives: The patient was provided with verbal and written education on the following topics as outlined below. Patient questions/concerns, patient seen by KELLEY 3 days ago, at that visit on 09/01/2023 A1c was 9.4% this is down from 10.6% in 04/2023 Patient has noticed improved numbers since starting on Mounjaro 7.5 mg, at last visit with KELLEY Mounjaro was increased to 10 mg In addition patient will be transitioning from An 2 sensors to An 3 sensors. I did explain to patient that if she is having difficulty with insurance covering An 3 reader she can contact me, and we can switch her over to Dexcom G7 so I can provide her with the reader. Patient does not have compatible smart phone with CGM The patient met all learning objectives and was able to verbalize understanding and provide teach back of education topics discussed . The patient was provided with the opportunity to ask questions and all questions were answered. Topics covered in today?s session included: Medications (If applicable) * Name of medication? * Dosing/administration instructions? * Mechanism of action? * Potential side effects? * Potential adverse reaction and appropriate treatment? * Review onset, peak, duration Assess for concerns re: insurance coverage, cost, barriers to compliance Insulin/Injectables (If applicable) * Storage/care of insulin?? * Injection sites? * Site rotation? * Onset, peak, duration * Drawing up insulin? * Injecting insulin/other injectables? * Sharps disposal Continuous blood glucose monitoring (if applicable) Hypoglycemia and Hyperglycemia * Signs and symptoms? * Causes?? * Treatment? * Preventing hypoglycemia? * When to seek medical attention * Blood glucose targets and how you feel when your blood glucose is in and out of your target ranges. * Monitoring and knowing your A1C. * What can make blood glucose go up and down and preventing high and low blood glucose. * Review of blood sugar targets in expected goal range and outside of expected goal range. * Problem solving and preventing hyper/hypoglycemia. ?Patient was receptive to information provided and participated in the discussion. Asked?appropriate questions and demonstrated good understanding of the topics discussed.? ? Educational Materials: The patient was provided with the following written educational materials: Target Goal, rule of 15s handout in [employer] Smart Goal Assessment:? Patient is able to identify foods that she is eating that contain carbohydrates Pt met goal more than 75% New Smart Goal:Pt will use rule of 15s to treat low blood glucose Patient Response to instructions: Comprehension of Instructions: Fair Readiness to make changes:? Action How confident they feel about making changes: Positive Portions of this note were created using voice recognition software, please excuse any words or phrases that may have been misinterpreted. Coding Level of Care Code Est Pt Level 1 (06483) Diagnoses Uncontrolled type 2 diabetes mellitus with hyperglycemia E11.65
== END 2023-09-04 15:49 | disposition home or self-care (01) ==
PROVIDERS: PCP Student in an Organized Health Care Education/Training Program; Visit Provider Registered Nurse Diabetes Educator
DX: E11.65 Type 2 diabetes mellitus with hyperglycemia (principal)

== ENCOUNTER → 2023-09-04 15:14 | Outpatient (BNVA) | payer MEDICAID, SELFPAY | PROVIDERS: PCP Student in an Organized Health Care Education/Training Program; Visit Provider Registered Nurse Diabetes Educator | DX: E11.65 Type 2 diabetes mellitus with hyperglycemia (principal); Z71.89 Other specified counseling | CPT/HCPCS: 99211 ==

== ENCOUNTER 2024-01-01 15:56 | Outpatient (AMB) | payer MEDICAID, SELFPAY ==
--- NOTE | 2024-01-01 16:18 | A.OFFVIS_ITS ---
Intake Intake Visit Reasons: [id number] Butadiene Converter Operator Required: Yes Butadiene Converter Operator Language: Singaporean Accompanied by: Daughter Allergies No Known Allergies Allergy (Verified 09/01/23 13:08) HPI Comprehensive Diabetes Asmnt Most Recent Diabetes Results: Microalb/Creat Ratio 7.6 ug/mg cr (<30) 10/25/22 Cholesterol 194 mg/dL (<200) 08/27/23 HDL Cholesterol 47 mg/dL (>40) 08/27/23 Triglycerides 139 mg/dL (<150) 08/27/23 Creatinine 0.71 mg/dL (0.5-1.4) 10/25/22 Blood Urea Nitrogen 11 mg/dL (9-16) 10/25/22 Sodium 138 mmol/L (135-145) 10/25/22 Potassium 4.1 mmol/L (3.3-5.1) 10/25/22 Chloride 103 mmol/L (96-108) 10/25/22 Carbon Dioxide 27 mmol/L (22-29) 10/25/22 Calcium 10.3 mg/dL (8.4-10.2) H 10/25/22 AST 12 U/L (5-31) 10/25/22 ALT 13 U/L (0-31) 10/25/22 Total Protein 7.3 g/dL (6.5-8.0) 10/25/22 Albumin 4.1 g/dL (3.5-5.0) 10/25/22 [facility] Medical History (Updated 09/01/23 @ 13:21 by Melanie Boo PA-C) Uncontrolled type 2 diabetes mellitus with hyperglycemia Surgical History History of section History of surgery History of removal of cyst Family History Mother Medical history unknown Father Cancer Social History Alcohol intake: never Patient Tobacco Use Status: Current someday Tobacco user Assessment & Plan Assessment & Plan (1) Uncontrolled type 2 diabetes mellitus with hyperglycemia: Code(s): E11.65 - Type 2 diabetes mellitus with hyperglycemia Plan: Patient has been unable to obtain An 3 sensors. Called [facility] pharmacy they report that they have not been able to get sensors due to the shortage. Patient given sample An 3+ sensor instructed to make appointment in 2 weeks to review glucose numbers. Reviewed how to interpret trend arrows Reminded patient that to check finger sticks if symptoms do not match sensor reading. Discussed lag time between finger stick and sensor data.? Patient's daughter able to insert sensor independently at home without issue.? Portions of this note were created using voice recognition software, please excuse any words or phrases that may have been misinterpreted. Patient Instructions: Instrucciones para el paciente: CGM proporciona informaci?n sobre el control de la glucosa en afia a lo aliyah del d?a, incluidas la hiperglucemia y la hipoglucemia. Contin?e controlando la glucosa en afia seg?n las instrucciones. Siga las pautas de nutrici?n proporcionadas. Informe cualquier molestia de inmediato al proveedor de atenci?n m?dica. Mantente ego hidratado. Puede ba?arse, ducharse, nadar y hacer ejercicio mientras usa el sensor de glucosa. No sumerja el sensor de glucosa en agua sofiya m?s de 30 minutos. Retire el sensor para kailey resonancia magn?ronit o kailey tomograf?a computarizada. Evite la m?quina de garcia X en los aeropuertos: retire el sensor o solicite la varita Coding Level of Care Code Est Pt Level 1 (70861) Diagnoses Uncontrolled type 2 diabetes mellitus with hyperglycemia E11.65
== END 2024-01-01 16:21 | disposition home or self-care (01) ==
PROVIDERS: PCP Student in an Organized Health Care Education/Training Program; Visit Provider Registered Nurse Diabetes Educator
DX: E11.65 Type 2 diabetes mellitus with hyperglycemia (principal)

== ENCOUNTER → 2024-01-01 15:56 | Outpatient (BNVA) | payer MEDICAID, SELFPAY | PROVIDERS: PCP Student in an Organized Health Care Education/Training Program; Visit Provider Registered Nurse Diabetes Educator | DX: E11.65 Type 2 diabetes mellitus with hyperglycemia (principal) | CPT/HCPCS: 99211 ==

== ENCOUNTER 2024-01-19 15:45 | Outpatient (AMB) | payer MEDICAID, SELFPAY ==
--- NOTE | 2024-01-19 16:02 | MHC.AMDMED ---
Intake Intake Visit Reasons: 60 min Office Sweeper Required: Yes Office Sweeper Language: Grenadian Allergies No Known Allergies Allergy (Verified 09/01/23 13:08) HPI Comprehensive Diabetes Asmnt Most Recent Diabetes Results: Microalb/Creat Ratio 7.6 ug/mg cr (<30) 10/25/22 Cholesterol 194 mg/dL (<200) 08/27/23 HDL Cholesterol 47 mg/dL (>40) 08/27/23 Triglycerides 139 mg/dL (<150) 08/27/23 Creatinine 0.71 mg/dL (0.5-1.4) 10/25/22 Blood Urea Nitrogen 11 mg/dL (9-16) 10/25/22 Sodium 138 mmol/L (135-145) 10/25/22 Potassium 4.1 mmol/L (3.3-5.1) 10/25/22 Chloride 103 mmol/L (96-108) 10/25/22 Carbon Dioxide 27 mmol/L (22-29) 10/25/22 Calcium 10.3 mg/dL (8.4-10.2) H 10/25/22 AST 12 U/L (5-31) 10/25/22 ALT 13 U/L (0-31) 10/25/22 Total Protein 7.3 g/dL (6.5-8.0) 10/25/22 Albumin 4.1 g/dL (3.5-5.0) 10/25/22 [facility] Medical History (Updated 09/01/23 @ 13:21 by Melanie Boo PA-C) Uncontrolled type 2 diabetes mellitus with hyperglycemia Surgical History History of section History of surgery History of removal of cyst Family History Mother Medical history unknown Father Cancer Social History Alcohol intake: never Patient Tobacco Use Status: Current someday Tobacco user Assessment & Plan Assessment & Plan (1) Uncontrolled type 2 diabetes mellitus with hyperglycemia: Code(s): E11.65 - Type 2 diabetes mellitus with hyperglycemia Plan: Personal Continuous Glucose Monitor: Patients CGM information reviewed, Pt uses An 3 sensor Sensor data: Hypoglycemia: ? 0% Hyperglycemia:? 68% Time in Range:? 32% Average glucose for the last 2 weeks? 205 mg/dL Lispro 20 units before breakfast and lunch, 30 units before supper Toujeo max, 52 units daily Patient reports she has only been taking 20 units of lispro after meals Encourage patient to move lispro dose to 15 minutes prior to meals Increase Lispro to 24 units Treat any hypoglycemia with rule of 15s Continue to contact [facility] pharmacy to find out when they will be able to give you An 3 sensors Patient given another sample An+ 3 sensor at today's visit Reviewed how to interpret trend arrows Patient also instructed to make follow-up appointment with physician's assistant professor of life sciences she is overdue for A1c Patient able to insert sensor independently at home without issue.? Portions of this note were created using voice recognition software, please excuse any words or phrases that may have been misinterpreted. Patient Instructions: Aumentar Lispro a 24 unidades 15 minutos antes de las comidas. Toujeo 52 unidades diarias larry un seguimiento con PA lo antes posible Seguimiento con la enfermera de educaci?n sobre diabetes en 2 meses Coding Level of Care Code Est Pt Level 1 (96409) Diagnoses Uncontrolled type 2 diabetes mellitus with hyperglycemia E11.65
== END 2024-01-19 16:23 | disposition home or self-care (01) ==
PROVIDERS: PCP Student in an Organized Health Care Education/Training Program; Visit Provider Registered Nurse Diabetes Educator
DX: E11.65 Type 2 diabetes mellitus with hyperglycemia (principal)

== ENCOUNTER → 2024-01-19 15:45 | Outpatient (BNVA) | payer MEDICAID, SELFPAY | PROVIDERS: PCP Student in an Organized Health Care Education/Training Program; Visit Provider Registered Nurse Diabetes Educator | DX: E11.65 Type 2 diabetes mellitus with hyperglycemia (principal) | CPT/HCPCS: 99211 ==

== ENCOUNTER 2024-04-08 13:06 | Outpatient (AMB) | payer MEDICAID, SELFPAY ==
--- NOTE | 2024-04-08 13:47 | MHC.AMDMED ---
Intake Intake Visit Reasons: 60 min Cafeteria Supervisor Required: Yes Cafeteria Supervisor Language: Pipe Fitter Soft Copper Name: Sara [facility] [place] Accompanied by: Daughter Allergies No Known Allergies Allergy (Verified 09/01/23 13:08) HPI Comprehensive Diabetes Asmnt Most Recent Diabetes Results: Microalb/Creat Ratio 7.6 ug/mg cr (<30) 10/25/22 Cholesterol 194 mg/dL (<200) 08/27/23 HDL Cholesterol 47 mg/dL (>40) 08/27/23 Triglycerides 139 mg/dL (<150) 08/27/23 Creatinine 0.71 mg/dL (0.5-1.4) 10/25/22 Blood Urea Nitrogen 11 mg/dL (9-16) 10/25/22 Sodium 138 mmol/L (135-145) 10/25/22 Potassium 4.1 mmol/L (3.3-5.1) 10/25/22 Chloride 103 mmol/L (96-108) 10/25/22 Carbon Dioxide 27 mmol/L (22-29) 10/25/22 Calcium 10.3 mg/dL (8.4-10.2) H 10/25/22 AST 12 U/L (5-31) 10/25/22 ALT 13 U/L (0-31) 10/25/22 Total Protein 7.3 g/dL (6.5-8.0) 10/25/22 Albumin 4.1 g/dL (3.5-5.0) 10/25/22 [facility] Medical History (Updated 09/01/23 @ 13:21 by Melanie Boo PA-C) Uncontrolled type 2 diabetes mellitus with hyperglycemia Surgical History History of section History of surgery History of removal of cyst Family History Mother Medical history unknown Father Cancer Social History Alcohol intake: never Patient Tobacco Use Status: Current someday Tobacco user Assessment & Plan Assessment & Plan (1) Uncontrolled type 2 diabetes mellitus with hyperglycemia: Code(s): E11.65 - Type 2 diabetes mellitus with hyperglycemia Plan: Personal Continuous Glucose Monitor: Patients CGM information reviewed, Pt uses [place] 3 with [place] Sensor data: Hypoglycemia: ?1% Hyperglycemia:?27% Time in Range:? 72% Average glucose for the last 2 weeks?157 mg/dL Patient reports taking Toujeo 52 units daily Humalog 42 units before meals Mounjaro 10 mg weekly Metformin 1000 mg b.i.d. At today's visit patient stated she had bronchitis, for the past 7-10 days her glucose levels have been elevated discussed with patient the effects that illness can have on glucose. The importance of staying well hydrated, having some carbohydrate If you are using [id number] cold medicines confirm with pharmacist that the type you are using is okay for people with diabetes At the beginning of March patient was having episodes of hypoglycemia, has not had hypoglycemia in the last 14 days. Reviewed with patient how to treat hypoglycemia with rule of 15s Patient reports since her bronchitis started she has not been eating until between 3 and 4 in the afternoon. Patient confirms that when she is not eating a meal she does not take Humalog Patient missed appointment with PA in January due to illness. She is overdue for her A1c instructed patient to make appointment with PA, and then with community educator 1 month after that appointment Instructed patient if hypo glycemia reoccurs she should contact provider or community educator. Patient and her daughter agreed to plan Patient able to insert sensor independently at home without issue.? Portions of this note were created using voice recognition software, please excuse any words or phrases that may have been misinterpreted. Coding Level of Care Code Est Pt Level 1 (59037) Diagnoses Uncontrolled type 2 diabetes mellitus with hyperglycemia E11.65
--- OUTSIDE RECORDS SUMMARY | 2024-04-08 14:02 | XMS_ITS | Clinical Summary ---
Author Organization [employer] Address [address] [place] [address] [address] [place] [address] Care Team Providers Care Disabilities Caregiver Name Role Phone Sharon Lopez MD Primary Care Pro vider Allergies Active Allergy Reactions Criticality Noted Date Comments Dust Mite Extract 04/03/2022 Other reaction(s): dust/congestion Medications cetirizine (ZyrTEC) 10 MG tablet Take 1 tablet by mouth 1 (one) time each day. 12/13/19 21 Active metFORMIN (Glucophage) 1000 MG tablet Take 1 tablet by mouth every 12 (twelve) hours. 12/30/19 20 Active sucralfate (Carafate) 1 GM/10ML suspensionIndic ations:Gastroes ophageal reflux disease, unspecified whether esophagitis present As needed for GERD every 8 hours [id number] mL 10/26/19 23 Active Continuous Blood Gluc Sensor (FreeStyle An 2 Sensor) [facility] [place] MONITOR INTERSTITIAL GLUCOSE CUATRO VECES AL KAYLEE AND CUANDO SEA NECESARIO 2 each 11 10/26/19 23 Active Mounjaro 2.5 MG/0.5ML solution pen-injector Inject 7.5 mg under the skin 1 (one) time per week. 11/05/19 23 Active aspirin 81 MG EC tablet Take 81 mg by mouth in the morning. Active dicyclomine (Bentyl) 20 MG tablet TAKE 1 TABLET BY MOUTH EVERY 8 HOURS 30 tablet 2 01/21/20 23 Active Diclofenac Sodium 1 % gel APPLY 2 GRAMS TO AFFECTED AREA(S) TOPICALLY EVERY MORNING 100 g 1 02/04/20 23 Active ketoconazole (NIZOral) 2 % shampooIndicati ons:Seborrheic dermatitis APPLY ONCE DAILY INITIALLY, THEN TWICE WEEKLY 120 mL 2 02/12/20 23 Active estradiol (Estrace) 0.1 MG/GM vaginal cream APPLY 1 GRAM VAGINALLY TWICE WEEKLY AT BEDTIME 08/08/19 23 Active traZODone (Desyrel) 100 MG tabletIndicatio ns:Prescribed by new psychiatrist Marilyn Todd Take 1-2 tablets by mouth at bedtime Active venlafaxine XR (Effexor XR) 75 MG 24 hr capsuleIndicati ons:Prescribed by new psychiatrist Marilyn Todd Take 1 capsule by mouth daily with 37.5 mg capsule (OGJ=468.5 mg) for 2 weeks Active venlafaxine (Effexor) 37.5 MG tablet TOME RAMEZ TABLETA POR V A ORAL TODOS LOS D (WITH 75MG) 02/06/20 23 Active insulin lispro (HumaLOG) 100 UNIT/ML injectionIndica tions:Type 2 diabetes mellitus with hyperglycemia, with long-term current use of insulin ([facility]) INJECT 4UNITS POR SUBCUTANEA 3VECES AL KAYLEE ANTES DE LAS COMIDAS IF GLUCOSE >150-199 MG/DL, INCREASE 1 UNIT EVERY 50 MG/DL INCREASE IN GLUCOSE (MAX 36 UNITS/DAY, IF HIGHER THEN 400 MG/DL CALL MD) 15 mL 5 04/14/19 24 Active risperiDONE (RisperDAL) 0.25 MG tablet TOME RAMEZ TABLETA POR V A ORAL TODOS LOS D 04/09/19 24 Active insulin glargine (Lantus SoloStar) 100 UNIT/ML pen INJECT 52 UNITS UNDER THE SKIN IN THE MORNING. 15 mL 3 05/12/19 24 Active docusate sodium (Colace) 100 MG capsule TAKE 1 CAPSULE BY MOUTH TWICE DAILY NEEDED FOR CONSTIPATION 180 capsule 11/21/19 24 Active D3 Super Strength 50 MCG (1999 UT) capsule TAKE 1 CAPSULE BY MOUTH EVERY MORNING 90 capsule 1 12/17/19 24 Active dapagliflozin (Farxiga) 10 MGIndications:T ype 2 diabetes mellitus with hyperglycemia, with long-term current use of insulin (CMS/HCC) TAKE 1 TABLET BY MOUTH EVERY EVENING 90 tablet 1 12/22/19 24 Active mirabegron ER (Myrbetriq) 25 MG 24 hr tablet TAKE 1 TABLET BY MOUTH EVERY MORNING 90 tablet 1 12/22/19 24 Active famotidine (Pepcid) 40 MG tablet TAKE 1 TABLET BY MOUTH AT BEDTIME 90 tablet 1 01/21/20 24 Active pantoprazole (ProtoNix) 40 MG EC tablet TAKE 1 TABLET BY MOUTH EVERY MORNING BEFORE BREAKFAST 90 tablet 1 01/21/20 24 Active atorvastatin (Lipitor) 80 MG tablet TAKE 1 TABLET BY MOUTH EVERY MORNING 90 tablet 1 01/21/20 24 Active lisinopril 10 MG tablet TAKE 1 TABLET BY MOUTH EVERY MORNING 90 tablet 03/17/19 25 Active lisinopril 10 MG tablet TAKE 1 TABLET BY MOUTH EVERY MORNING 90 tablet 12/09/19 24 2024 Discontinued Active Problems Problem Noted Date Diagnosed Date Abdominal pain 07/24/2023 Hyperalgesia 07/24/2023 Severe obesity (BMI 35.0-39.9) with comorbidity 11/27/2022 11/27/2022 Hypoglycemia due to insulin 11/27/2022 Healthcare maintenance 10/26/2022 Left shoulder pain 10/26/2022 Memory loss 10/26/2022 Tobacco use disorder 10/26/2022 Schizophrenia 10/25/2022 Arthritis 05/31/2022 Depression 05/31/2022 Hyperlipidemia 05/31/2022 Gastroesophageal reflux disease 05/31/2022 Assessment & Plan (05/31/2022 9:59 AM EDT): Patient with reflux symptoms. Will start on sucraflate for symptom relief. Incontinence of feces 02/04/2022 Assessment & Plan (02/04/2022 1:57 PM EST): Reports new onset of urge incontinence, denies any falls. Denies diarrhea. Reports unprovoked. Should avoid foods with laxative properties. Will send to GI, will benefit of adult diapers. Type 2 diabetes mellitus wit h hyperglycemia, with long-term current use of insulin 02/04/2022 Assessment & Plan (05/31/2022 9:58 AM EDT): Patient with uncontrolled glucose levels. TIR 32% - 40%. 1 symptomatic hypoglycemic episode per sensor. At this point will decrease insulin from 56 units to 52units. Assessment & Plan (02/25/2022 12:58 PM EST): Reviewed cGM, did have an episode of 69 mg/dL last night, will switch lantus to the AM and incr to 56 U. TAR 68%, TIR 32%. Continue cGM, already has appt setup with endocrinology. Target fasting 80-130 mg/dL Assessment & Plan (02/04/2022 2:12 PM EST): Uncontrolled, POC a1c above target. No using insulin as indicated, doesn't have her cGM with her. Reports fastings always above target, will incr lantus to 54 Units and f/u in 1 week with patient with home readings and also to bring her reader with her. Urinary incontinence 02/04/2022 Assessment & Plan (02/04/2022 2:12 PM EST): Chronic, urge and stress incontinence. Oxybutyn not helpful, will send tolterodine, will refer to urology. Hypertensive disorder 01/30/2022 Assessment & Plan (02/25/2022 12:59 PM EST): Target < 130/80 mmHg, close to target, will f/u in 3 months Assessment & Plan (02/04/2022 1:55 PM EST): Target < 130/80 mmHg. Currently uncontrolled. On lisinopril 10 mg, will check at home and bring monitoring, if still elevated, will incr lisinopril to 20 mg. Resolved Problems Problem Noted Date Diagnosed Date Resolved Date Bartholin gland cyst 02/25/2022 024 Assessment & Plan (02/25/2022 1:00 PM EST): R sided bartholin cyst, no signs of infection. Recommended SITZ baths, rtc prn Encounters Date Type Department Care Team Description 03/16/2024 Refill [facility] [address] [place] [address] Sharon Lopez MD 01/20/2024 Refill [facility] MEDIC[facility] [address] [place] [address] Sharon Lopez MD from Last 3 Months Immunizations Name Administration Dates Next Due Hep B, adult 07/24/2023,01/15/2023,11/26/2022 Influenza injectable quadriv alent preservative free 10/25/2022 Pneumococcal Conjugate PCV 20 10/25/2022 Tdap 10/25/2022 Zoster, Recombinant 04/15/2023 Family History Medical History Relation Name Comments unspecified maligancy Father DM2,HTN Mother sister 1: uterine ca, sister 2 : unspecified ca Sister Relation Name Status Comments Father Mother Sister Social History Tobacco Use Types Packs/Day Years Used Date Smoking Tobacco: Former Cigarettes Q uit: 11/16/2022 Passive Smoke Exposure: Never Smokeless Tobacco: Never Tobacco Cessation:Counseling Given: Not Answered Comments:Started smoking 23 of age on and off 10 cigarette a day for aprox 4 years stopped heavy use until her 33 y of age ( 22 years ---smoked 1 cigarette a few times a week. Reports quitting entirely 10/2022. Alcohol Use Standard Drinks/Week Comments Never 0 (1 standard drink = 0.6 oz pur e alcohol) Depression Answer Date Recorded Patient Health Questionnaire-9 Score 14 10/25/2022 Housing Stability Answer Date Recorded What is your housing situation today? I have price cheema 06/16/[address] you li ve. Do you have problems with any of the following? None of the above 06/16/2023 Food Insecurity Answer Date Recorded Within the past 12 months, y ou worried that your food would run out before you got money to buy more: Never True 06/16/2023 Within the past 12 months,th e food you bought just didn't last and you didn't have enough money to get more: Never True Transportation Answer Date Recorded In the past 12 months, has l ack of transportation kept you from medical appts, meetings, work or from getting things needed for daily living? No 06/16/2023 Utilities Answer Date Recorded In the past 12 months, has t he electric, gas, oil or water company threatened to shut off services in your home? No 06/16/2023 Depression Answer Date Recorded Patient Health Questionnaire-2 Score 3 10/25/2022 Internet Access Answer Date Recorded Internet Access Q1 Yes 10/20/2023 Internet Access Q2 Not on file 10/20/2023 Comments No Sex and Gender Information Value Date Recorded Sex Assigned at Female 12/17/2021 10:36 AM EDT Legal Sex Female 10:36 AM EDT Gender Identity Female 12/17/2021 10:36 AM EDT Sexual Orientation Straight 12/17/2021 10 :36 AM EDT Last Filed Vital Signs Vital Sign Reading Time Taken Comments Blood Pressure 120/66 09/02/2023 2:32 PM EDT Pulse 86 09/02/2023 2:32 PM EDT Temperature 37.1 ??C (98.8 ??F) 09/02/2023 2:32 PM ED T Respiratory Rate 20 09/02/2023 2:32 PM EDT Oxygen Saturation 98% 09/02/2023 2:32 PM EDT Inhaled Oxygen Concentration - - Weight 87.3 kg (192 lb 6.4 oz) 09/02/2023 2:32 P M EDT Height 157.5 cm (5' 2 ) 09/02/2023 2:32 PM EDT Body Mass Index 35.19 09/02/2023 2:32 PM EDT Plan of Treatment Upcoming Encounters Date Type Department Care Team (Late st Contact Info) Description 07/22/2024 2:00 PM EDT Office Visit [facility] OPTOM[facility]RY [address] [place] [address] Lediy Cerna, OD [address] [place] [address] Health Maintenance Due Date Last Done Comments CT Colonography 1965 Colonoscopy 1965 Colorectal Cancer Screening 1965 FIT DNA/Cologuard 1963 FIT 1965 FOBT 1965 Sigmoidoscopy 1963 Diabetes: Foot Exam 1973 Alcohol/Substance Use Screening 1975 RSV Patients and Patients Aged 60 years or older (1 - Risk 60-74 years 1-dose series) 2023 Depression Monitoring (PHQ-9) 04/25/2023 10/25/2022, 10/25/2022 Zoster Vaccines (2 of 2) 06/10/2023 04/15/2023 COVID-19 Vaccine ( season) 2023 Influenza Vaccine (#1) 2023 10/25/2022 Diabetes: Hemoglobin A1C 10/24/2023 024, 02/11/2023, 10/25/2022, Additional history exists Depression Screening 10/26/2023 10/25/2022, 10/26/19 Diabetes: Urine Protein Screening 10/26/2023 10/25/2022, 12/14/2020, 10/05/2020 SDOH Screening 06/15/2024 06/16/2023 Lipid Panel 08/26/2024 08/27/2023, 09/0 09/2022, 12/14/2020, Additional history exists Tobacco Screening 09/01/2024 09/02/2023 Mammogram 11/08/2024 11/08/2022, 06/09/2020 Eye Exam 02/06/2025 02/06/2023, 01/18, 02/06/2023, Additional history exists Cervical Cancer Screening 09/01/2028 HPV/Cotest 09/01/2028 09/02/2023 Pap Smear 09/01/2028 09/02/2023 DTaP/Tdap/Td Vaccines (2 - Td or Tdap) 10/25/2032 10/25/2022 HIV Screening Completed 10/25/2022 Hepatitis C Screening Completed 10/25/2022, 023 Pneumococcal Vaccine: 50+ Years Completed 10/25/2022 Hepatitis B Vaccines Completed 07/24/2023, 01/15/2023, 11/26/2022 HIB Vaccines Aged Out No longer eligi ble based on patient's age to complete this topic HPV Vaccines Aged Out No longer eligi ble based on patient's age to complete this topic Hepatitis A Vaccines Aged Out No long er eligible based on patient's age to complete this topic IPV Vaccines Aged Out No longer eligi ble based on patient's age to complete this topic Meningococcal Vaccine Aged Out No alcon reggie eligible based on patient's age to complete this topic RSV under 20 months Aged Out No longe r eligible based on patient's age to complete this topic Rotavirus Vaccines Aged Out No longer eligible based on patient's age to complete this topic Goals Goal Patient Goal Type Associated Problems Recent Progress Patient-Stated? Author Blood Pressure < 140/90 Blood Pressure 120/66(2023 2:32 PM EDT) No Jorge Terrell PharmD Hemoglobin A1c < 7 Result Component 10(07/24/2023 1:10 PM EDT) No Jorge Terrell PharmD Procedures Procedure Name Priority Date/Time Associated Diagnosis Comments THINPREP IMAGING PAP AND HPV MRNA E6/E7 Routine 09/02/2023 2:56 PM EDT LIPID PANEL, STANDARD Routine 08/27/2023 11:42 AM EDT POCT GLYCATED HEMOGLOBIN, TOTAL Routine 07/24/2023 1:10 PM EDT Type 2 diabetes mellitus with hyperglycemia, with long-term current use of insulin ([facility]) BI MAMMOGRAM SCREENING TOMOSYNTHESIS BILATERAL Routine 11/08/2022 1:00 PM EDT ALBUMIN, RANDOM URINE W/CREATININE Routine 10/25/2022 12:44 PM EDT Health care maintenance HEPATITIS C AB W/REFL TO HCV RNA, QN, PCR Routine 10/25/2022 12:29 PM EDT Health care maintenance HIV ANTIBODY/ANTIGEN ([place] [facility]) Routine 10/25/2022 12:29 PM EDT from Last 3 Months or Most Recently Relevant to Health Maintenance Results * ThinPrep Imaging Pap and HPV mRNA E6/E7 (09/02/2023 2:56 PM EDT) HPV nRNA E6/E7 Not Detected Not Detected [facility] Comment:Methodology: Transcr iption-Mediated AmplificationThis assay detects E6/E7 viral messenger RNA (mRNA) from 14high-risk HPV types (16,18,31,33,35,39,45,51,52,56,58,59,66,68).Cervical sources are required for HPV testing.If a vaginal source from a patient who has had atotal hysterectomy with removal of cervix wassubmitted, please contact the testing laboratoryfor alternative testing options.For additional information, please refer [email or web address]/faq/[email or web address](This link if provided for information/educational purposes only.)THIS TEST WAS PERFORMED AT:[facility] [address] [address]QFCFCMEL DOZIER MD SOURCE: SEE NOTE [facility] Comment:None given Report Status: [facility] Clinical Information: SEE NOTE [facility] Comment:None given LMP: SEE NOTE [facility] Comment:NONE GIVEN Prev. PAP: SEE NOTE [facility] Comment:NONE GIVEN Prev. BX: SEE NOTE [facility] Comment:NONE GIVEN Statement Of Adequacy: SEE NOTE [facility] Comment:Satisfactory for ella luation.Endocervical/transformation zone componentpresent. General Categorization: [facility] Interpretation/Result: SEE NOTE [facility] Comment:Cytology Results: Ne gative for intraepitheliallesion or malignancy. Cytology Comment SEE NOTE [facility] Comment:This Pap test has be en evaluated with computerassisted technology. Bass String Winder: SEE NOTE [facility] Comment:RXB, CT(ASCP)CT scre ening location: [address] [address] Review Bass String Winder: [facility] Pathologist [facility] PAP Infection [facility] See Note SEE [facility] Comment:EXPLANATORY NOTE:The Pap is a screening test for cervical cancer. It isnot a diagnostic test and is subject to false negativeand false positive results. It is most reliable when asatisfactory sample, regularly obtained, is submittedwith relevant clinical findings and history, and whenthe Pap result is evaluated along with historic andcurrent clinical information. 09/02/2023 2:56 PM EDT 09/02/2023 4:50 PM EDT Narrative [facility] - 09/10/2023 2:42 PM EDT SEE SCANNED RESULTS IN EMRRCERVIX us Mariya Licona [facility] PATHOLOG[facility] ORDERABLES Final Result Performing Organization Address [facility] Co de Phone Number [facility] [address] [place] [address] [phone] * (ABNORMAL) Lipid Panel, Standard (08/27/2023 11:42 AM EDT) Triglycerides 139 <150 mg/dL [facility] Comment:Desirable Triglyceri de: less than 150 mg/dLBorderline High Triglyceride 150-199 mg/dLHigh Triglyceride: 200-499 mg/dLVery High Triglyceride: greater than or equal to 5OO mg/dL Cholesterol 194 <200 mg/dL [facility] Comment:Desirable Cholestero l: less than 200 mg/dLBorderline High Cholesterol: 200-239 mg/dLHigh Cholesterol: greater than 239 mg/dL LDL Cholesterol Calculated 120(H) <100 mg/dL [facility] Comment:Desirable LDL: less than 100 mg/dLNear Optimal/Above Optimal LDL: 110- 129 mg/dLBorderline High LDL: 130-159 mg/dLHigh LDL: 160-189 mg/dLVery High LDL: greater than or equal to 190 mg/dL HDL Cholesterol 47 >40 mg/dL [facility] Comment:Desirable HDL: great er than 40 mg/dL Note: This HDL assay may give artificially low results in patients with liver disease. 08/27/2023 11:4 2 AM EDT 08/27/2023 11:42 AM EDT us Generic External Data Provider LAB BLOOD ORDERAB LES Final Result Performing Organization Address [facility]/ZIP Co de Phone Number [facility] [address] [place] [address] [phone] * (ABNORMAL) POCT HGB A1C (07/24/2023 1:10 PM EDT) Hemoglobin A1C 10.0(A) 4.0 - 6.0 % QC Media Lot # [id number] Lot# Expiration Date [id number] Blood 07/24/2023 1:10 PM EDT us Sharon Peña MD POINT OF CARE NARESH T ENTER/EDIT ORDERABLES Final Result * BI Mammogram Screening Tomosynthesis Bilateral (11/08/2022 1:00 PM EDT) Anatomical Region Laterality Modality Breast Bilateral Mammography 11/08/2022 1:00 PM EDT Narrative 11/17/2022 10:37 PM EDT ? [facility] ? [address] ?[place] [address] ? Mammography Report ? Signed ? Patient: Martir,Aminata ?MR#: [id number] ?? 90 ? : 1965 ?Acct:[id number] ? Age/Sex: 57 / F ?ADM Date: 11/08/22 ? Loc: HO.MAMMO ? Attending Dr: Sharon Peña MD ? Ordering Physician: Sharon Lopez MD ?Re ?? sults: 1Negative ? Date of Service: 11/08/22 ?Follow Up: 1 Year From Orig ?? inal Mammogram ? Procedure(s): MM tomosynthesis screening BI ?? Accession Number(s): [id number] ? cc: Sharon Lopez MD ? EXAMINATION: ?? MM SCREENING DIGITAL BREAST TOMOSYNTHESIS, BILATERAL ? CLINICAL INFORMATION: ? Screening. Asymptomatic. ? COMPARISON: ?? Mammography: This study is compared with prior exams dating back to ?? 2020. ? TECHNIQUE: ?? Digital breast tomosynthesis is performed in both the craniocaudal and ?? mediolateral oblique views along with computer-aided detection (CAD). ?? Synthesized 2D images are generated from the tomosynthesis. ? FINDINGS: ?? There are scattered areas of fibroglandular density (ACR BI-RADS breast ?? composition Category b). ? There are no significant masses, abnormal calcifications, or other ?? abnormalities. ? MM/MM tomosynthesis screening BI ?? IMPRESSION: ?? No mammographic evidence of malignancy. ? ASSESSMENT: ? BI-RADS BI-RADS 1 - Negative ? RECOMMENDATION: ?? Routine annual mammography screening. ? 1 year F/U ? This examination should not preclude the clinical evaluation of a ?? suspicious palpable abnormality. ? This patient's information was entered into a reminder system with a ?? target due date for their next mammogram. ? Dictated By: ?Gabbi Caripo MD ? Signed By: ?<Electronically signed by Gabbi Carpio MD in OV> ? 11/17/22 2233 ? DD/ 1300 ? TD/TT: ? Guest Services Representative: ? Procedure Note Jevon, Image - 11/17/2022 [facility] [address] [place] [address] Mammography Report Signed Patient: Aminata McmahanMR#: [id number] 90 : 1965Acct:[id number] Age/Sex: 57 / FADM Date: 11/08/22 Loc: [facility] Attending Dr: Sharon Peña MD Ordering Physician: Sharon Lopez sults: 1Negative Date of Service: 11/08/22Follow Up: 1 Year From Orig inal Mammogram Procedure(s): MM tomosynthesis screening BI Accession Number(s): [id number] cc: Sharon Lopez MD EXAMINATION: MM SCREENING DIGITAL BREAST TOMOSYNTHESIS, BILATERAL CLINICAL INFORMATION: Screening. Asymptomatic. COMPARISON: Mammography: This study is compared with prior exams dating back to 2020. TECHNIQUE: Digital breast tomosynthesis is performed in both the craniocaudal and mediolateral oblique views along with computer-aided detection (CAD). Synthesized 2D images are generated from the tomosynthesis. FINDINGS: There are scattered areas of fibroglandular density (ACR BI-RADS breast composition Category b). There are no significant masses, abnormal calcifications, or other abnormalities. MM/MM tomosynthesis screening BI IMPRESSION: No mammographic evidence of malignancy. ASSESSMENT: BI-RADS BI-RADS 1 - Negative RECOMMENDATION: Routine annual mammography screening. 1 year F/U This examination should not preclude the clinical evaluation of a suspicious palpable abnormality. This patient's information was entered into a reminder system with a target due date for their next mammogram. Dictated By: Gabbi Carpio MD Signed By: <Electronically signed by Gabbi Carpio MD in OV> 11/17/22 2233 DD/ 1300 TD/TT: Guest Services Representative: us Sharon Peña MD IMG BI PROCEDURES Final Result * Albumin, Random Urine W/Creatinine (10/25/2022 12:44 PM EDT) Creatinine, Urine 117.70 mg/dL [facility] Microalbumin Urine 9.0 mg/L [facility] Microalbum Creatinine Ratio Ur 7.6 <30 ug/mg cr [facility] Comment:Albumin/Creatinine R atio Reference Ranges: Normal: < 30 ug/mg creatinine Microalbuminuria: 30 - 300 ug/mg creatinineClinical Albuminuria: > 300 ug/mg creatinine Urine 10/25/2022 12:4 4 PM EDT 10/25/2022 1:04 PM EDT us Sharon Peña MD LAB URINE ORDERAB LES Final Result [facility] [address] [place] [phone] * HIV Ab/Ag (CLEVE DP) (10/25/2022 12:29 PM EDT) Pathologist [facility] HIV AB/AG Nonreactive Nonreactive [facility] Comment:HIV-1 p24 Ag and/or HIV-1/HIV-2 Ab not detected.A test result that is nonreactive does not exclude thepossibility of exposure to or infection with HIV-1 and/orHIV-2. Nonreactive results in this assay for individualswith prior exposure to HIV-1 and/or HIV-2 may be due toantigen and antibody levels that are below the limit ofdetection of this assay.The LeCabni1-4 All HIV Ag/Ab Combo assay result andsupplemental assay results should be interpreted inconjunction with the patient's clinical presentation,history and other laboratory results. If the results areinconsistent with clinical evidence, additional testing issuggested to confirm the result. 10/25/2022 12:2 9 PM EDT 10/25/2022 1:02 PM EDT us Sharon Peña MD LAB BLOOD ORDERAB LES Final Result [facility] [address] [place] [phone] * (ABNORMAL) Hepatitis C Antibody with Reflex to HCV, RNA, Quantitative, Real- Time PCR (10/25/2022 12:29 PM EDT) [facility] Hepatitis C Antibody Reactive( A) Nonreactive [facility] Comment:Presumptive evidence of antibodies to HCV. Blood Venous blood specimen / Unknown 10/25/2022 12:29 PM EDT 10/25/2022 1:02 PM EDT us Sharon Peña MD LAB BLOOD ORDERAB LES Final Result Performing Organization Address City/[facility]/ZIP Co de Phone Number [facility] [address] [place] [phone] from Last 3 Months or Most Recently Relevant to Health Maintenance Insurance C3 * Guarantor: Aminata Wray Account Type Relation to Patient Date of Phone Billing Address Personal/Family Self [address] [place] [address] * Guarantor: Aminata Wray Account Type Relation to Patient Date of Phone Billing Address Personal/Family Self [address] [place] [address] * Guarantor: Aminata Wray Account Type Relation to Patient Date of Phone Billing Address Personal/Family Self [address] [place] [address] Care Teams Disabilities Caregiver Relationship Specialty Start Date End Date Sharon Lopez MD [address] [place] [phone] PCP - General Internal Medicine 07/16/22
--- OUTSIDE RECORDS SUMMARY | 2024-04-08 14:02 | XMS_ITS | Encounter Summary ---
Author Organization [employer] Address [address] [place] [address] 7 [place] [address] Care Team Providers Care Twister Tender Paper Name Role Phone Sharno Lopez MD Primary Care Pro vider Reason for Visit * Reason Comments Med Refill Encounter Details Date Type Department Care Team ([facility] st Contact Info) Description 06/26/2023 Refill [facility] MEDICINE [address] [place], [place] [phone] Sharon Lopez MD 230 [place], [place] [phone] Type 2 diabetes mellitus with hyperglycemia, with long-term current use of insulin ([facility]) Social History Tobacco Use Types Packs/Day Years Used Date Smoking Tobacco: Former Cigarettes Q uit: 11/16/2022 Passive Smoke Exposure: Never Smokeless Tobacco: Never Comments:Started smoking 23 of age on and [...] Recorded Patient Health Questionnaire-2 Score 3 10/25/2022 Comments Unknown Sex and Gender Information Value Date Recorded Sex Assigned at Female 12/17/2021 10:36 AM EDT Legal Sex Female 10:36 AM EDT Gender Identity Female 12/17/2021 10:36 AM EDT Sexual Orientation Straight 12/17/2021 10 :36 AM EDT documented as of this encounter Plan of Treatment Upcoming Encounters Date Type Department Care Team (Late st Contact Info) Description 07/22/2024 2:00 PM EDT Office Visit [facility] OPTOMETRY [address] [place], [place] [phone] Leidy Cerna, OD [address] [place] [address] documented as of this encounter Goals Goal Patient Goal Type Associated Problems Recent Progress Patient-Stated? Author Blood Pressure < 140/90 Blood Pressure 120/66(2023 2:32 PM EDT) No Jorge Terrell, Paul Hemoglobin A1c < 7 Result Component 10(07/24/2023 1:10 PM EDT) No Jorge Terrell PharmD documented as of this encounter Visit Diagnoses Diagnosis Type 2 diabetes mellitus with hyperglycemia, with long-term current use of insulin ([facility]) documented in this encounter Additional Health Concerns Assessment Noted Time PHQ-9 Depression Total Score: 14 023 10:55 AM EDT documented as of this encounter Care Teams Twister Tender Paper Relationship Specialty Start Date End Date Sharon Lopez MD 230 [place], [place] [phone] PCP - General Internal Medicine 07/16/22 documented as of this encounter
--- OUTSIDE RECORDS SUMMARY | 2024-04-08 14:02 | XMS_ITS | Encounter Summary ---
Author Organization [employer] Address [address] [facility] [address] 7 [place] [address] Care Team Providers Care Radiation Therapy Technologist Name Role Phone Sharon Lopez MD Primary Care Pro vider Reason for Visit * Reason Comments Med Refill Encounter Details Date Type Department Care Team ([facility] st Contact Info) Description 03/16/2024 Refill [facility] CHC MED & PEDS [address] [place], [place] [phone] Sharon Lopez MD 230 [place] [address] Social History Tobacco Use Types Packs/Day Years [...] Description 07/22/2024 2:00 PM EDT Office Visit [facility] OPTOMETRY [address] [place], [place] [phone] Leidy Cerna, HARMONY 267 [place], [place] [phone] documented as of this encounter Goals Goal Patient Goal Type Associated Problems Recent Progress Patient-Stated? Author Blood Pressure < 140/90 Blood Pressure 120/66(2023 2:32 PM EDT) No Jorge Terrell PharmD Hemoglobin A1c < 7 Result Component 10(07/24/2023 1:10 PM EDT) No Jorge Terrell PharmD documented as of this encounter Visit Diagnoses Not on filedocumented in this encounter Additional Health Concerns Assessment Noted Time PHQ-9 Depression Total Score: 14 023 10:55 AM EDT documented as of this encounter Care Teams Radiation Therapy Technologist Relationship Specialty Start Date End Date Sharon Lopez MD [address] [place], [place] [phone] PCP - General Internal Medicine 07/16/22 documented as of this encounter
--- OUTSIDE RECORDS SUMMARY | 2024-04-08 14:02 | XMS_ITS | Encounter Summary ---
Author Organization [employer] Address [address] [place] [address] 7 [place] [address] Care Team Providers Care Organizational Development Director Name Role Phone Sharon Lopez MD Primary Care Pro vider Reason for Visit * Reason Onset Date Comments Triage 07/16/2022 Encounter Details Date Type Department Care Team ([facility] st Contact Info) Description 07/16/2022 Telephone [facility] MEDICINE [address] [place], [place] [phone] Sharon Lopez MD [address] [place] [address] Triage Social History Tobacco Use Types Packs/Day Years Used Date Smoking Tobacco: Former Cigarettes Passive Smoke Exposure: Never Smokeless Tobacco: Never Alcohol Use Standard Drinks/Week Comments Never 0 (1 standard drink = 0.6 oz pur e alcohol) PHQ-2 Answer Date Recorded Patient Health Questionnaire-2 Score 2 05/31/2022 Comments Unknown Sex and Gender Information Value Date Recorded Sex Assigned at Female 12/17/2021 10:36 AM EDT Legal Sex Female 10:36 AM EDT Gender Identity Female 12/17/2021 10:36 AM EDT Sexual Orientation Straight 12/17/2021 10 :36 AM EDT documented as of this encounter Miscellaneous Notes * Telephone Encounter - Izabel Mosley RN - 07/16/2022 3:28 PM EDT Second attempt Call returned to patient for triage. No answer LVM to return call to [facility] triage line. Protocol Used: No Contact or Duplicate Contact Call (Adult) Protocol-Based Disposition: No Contact Call Positive Triage Question: * Message left on identified voicemail * All higher-acuity triage questions were negative * Telephone Encounter - Izabel Mosley RN - 07/16/2022 3:10 PM EDT Call returned to patient for triage. No answer LVM to return call to [facility] triage line. Left [facility] opearting hours as well. Protocol Used: No Contact or Duplicate Contact Call (Adult) Protocol-Based Disposition: No Contact Call Positive Triage Questions: * No answer. First attempt to contact caller. Follow-up call scheduled within 15 minutes. * Message left on identified voicemail * All higher-acuity triage questions were negative * Telephone Encounter - Ivy Greenberg - 07/16/2022 2:50 PM EDT Pt 2 of 2 Symptom: Urination Pain Outcome: Schedule an urgent appointment (within 1 hour) or talk to a nurse or provider soon Reason: Blood in urine The caller accepted this outcome Patient speaks thai. documented in this encounter Plan of Treatment Upcoming Encounters Date Type Department Care Team (Late st Contact Info) Description 07/22/2024 2:00 PM EDT Office Visit [facility] OPTOMETRY [address] [place] [address] Leidy Cerna OD [address] [place] [address] documented as of this encounter Visit Diagnoses Not on filedocumented in this encounter Additional Health Concerns Assessment Noted Time PHQ-9 Depression Total Score: 2 06/01/19 23 9:31 AM EDT documented as of this encounter Care Teams Organizational Development Director Relationship Specialty Start Date End Date Sharon Lopez MD [address] [place] [address] PCP - General Internal Medicine 07/16/22 documented as of this encounter
--- OUTSIDE RECORDS SUMMARY | 2024-04-08 14:02 | XMS_ITS | Encounter Summary ---
Author Organization [facility] Address [address] [place] [address] 7t [place] [address] Care Team Providers Care Sandwich And Drink Cart Operator Name Role Phone Linda Damon MD Primary Care Provider [phone] Sharon Lopez MD Primary Care Pro vider Reason for Visit * Reason Comments Med Refill Encounter Details Date Type Department Care Team ([facility] Contact Info) Description 06/25/2022 Refill [facility] CHC MED & PEDS [address] [place], [place] [phone] Linda Damon MD [address] [place] [address] Gastroesophageal reflux disease, unspecified whether esophagitis present Social History Tobacco Use Types Packs/Day Years [...] Orientation Straight 12/17/2021 10 :36 AM EDT COVID-19 Exposure Response Date Recorded In the last 10 days, have yo u been in contact with someone who was confirmed or suspected to have Coronavirus/COVID-19? No / Unsure 05/31/2022 9:13 AM EDT documented as of this encounter Plan of Treatment Upcoming Encounters Date Type Department Care Team ([facility] Contact Info) Description 07/22/2024 2:00 PM EDT Office Visit [facility] OPTOMETRY [address] [place], [place] [phone] Leidy Cerna OD [address] [place] [address] documented as of this encounter Visit Diagnoses Diagnosis Gastroesophageal reflux disease, unspecified whether esophagitis present documented in this encounter Additional Health Concerns Assessment Noted Time PHQ-9 Depression Total Score: 2 06/01/19 23 9:31 AM EDT documented as of this encounter Care Teams Sandwich And Drink Cart Operator Relationship Specialty Start Date End Date Linda Damon MD 230 [place], [place] [phone] PCP - General Family Medicine 12/14/20 07/15/22 Sharon Lopez MD [address] [place], [place] [phone] PCP - General Internal Medicine 07/16/22 documented as of this encounter
--- OUTSIDE RECORDS SUMMARY | 2024-04-08 14:02 | XMS_ITS | Encounter Summary ---
Author Organization [email or web address] Address [address] [place] [address] 7 [place] [address] Care Team Providers Care Entertainment Usher Name Role Phone Sharon Lopez MD Primary Care Pro vider Reason for Visit * Reason Onset Date Comments Appointment Request 08/26/2022 Encounter Details Date Type Department Care Team ([facility] st Contact Info) Description 08/26/2022 Telephone [facility] MEDICINE [address] [place], [place] [phone] Sharon Lopez MD 230 [place] [address] Appointment Request Social History Tobacco Use Types Packs/Day Years [...] encounter Miscellaneous Notes * Telephone Encounter - Kathi Alvarado - 08/26/2022 2:17 PM EDT Tc from pt daughter requesting to schedule TP appointment. States she missed 08/23. Road Crew Member did not see any availability for August. Please contact pt daughter at [phone] documented in this encounter Plan of Treatment Upcoming Encounters Date Type Department Care Team (Late st Contact Info) Description 07/22/2024 2:00 PM EDT Office Visit [facility] OPTOMETRY [address] [place], [place] [phone] Leidy Cerna, OD [address] [place], [place] [phone] documented as of this encounter Visit Diagnoses Not on filedocumented in this encounter Additional Health Concerns Assessment Noted Time PHQ-9 Depression Total Score: 2 06/01/19 23 9:31 AM EDT documented as of this encounter Care Teams Entertainment Usher Relationship Specialty Start Date End Date Sharon Lopez MD [address] [place], [place] [phone] PCP - General Internal Medicine 07/16/22 documented as of this encounter
--- OUTSIDE RECORDS SUMMARY | 2024-04-08 14:02 | XMS_ITS | Encounter Summary ---
Author Organization [employer] Address [address] [place] [address] 7 [place] [address] Care Team Providers Care Portable Track Line Marker Name Role Phone Sharon Lopez MD Primary Care Pro vider Reason for Visit * Reason Onset Date Comments Med Refill 11/17/2023 Encounter Details Date Type Department Care Team ([facility] st Contact Info) Description 11/17/2023 Telephone [facility] MEDICINE [address] [place], [place] [phone] Sharon Lopez MD [address] [place], [place] [phone] Med Refill Social History Tobacco Use Types Packs/Day Years [...] encounter Miscellaneous Notes * Telephone Encounter - Dinah Vazquez LPN - 11/17/2023 11:36 AM EDT Medication prescribed by Dr. Almanza. * Telephone Encounter - Karlie Ruiz - 11/17/2023 11:20 AM EDT TC from pt requesting medication refill. Medications needing refill : Mounjaro 2.5 MG/0.5ML solution pen-injector To be sent to: [facility] - [place], [place] - [address] [facility] documented in this encounter Plan of Treatment Upcoming Encounters Date Type Department Care Team (Late st Contact Info) Description 07/22/2024 2:00 PM EDT Office Visit [facility] OPTOMETRY [address] [place] [address] Leidy Cerna, OD [address] [facility] [place] [address] documented as of this encounter Goals Goal [...] documented as of this encounter Care Teams Portable Track Line Marker Relationship Specialty Start Date End Date Sharon Lopez MD [address] [place] [address] PCP - General Internal Medicine 07/16/22 documented as of this encounter
--- OUTSIDE RECORDS SUMMARY | 2024-04-08 14:02 | XMS_ITS | Encounter Summary ---
Author Organization [facility] Address [address] [place] [address] 7t [place] [address] Care Team Providers Care Family Service Assistant Name Role Phone Linda Damon MD Primary Care Provider [phone] Sharon Lopez MD Primary Care Pro vider Reason for Visit * Reason Comments Med Change Request Encounter Details Date Type Department Care Team ([facility] Contact Info) Description 04/03/2022 Refill [facility] CHC MED & PEDS [address] [place], [place] [phone] Farida Bingham MD 505 [place] [address] Bartholin gland cyst Social History Tobacco Use Types Packs/Day Years Used Date Smoking Tobacco: Never Passive Smoke Exposure: Never Smokeless Tobacco: Never Alcohol Use Standard Drinks/Week Comments Never 0 (1 standard drink = 0.6 oz pur e alcohol) Comments Unknown Sex and Gender Information Value [...] suspected to have Coronavirus/COVID-19? No / Unsure 04/03/2022 9:38 AM EST documented as of this encounter Plan of Treatment Upcoming Encounters Date Type Department Care Team ([facility] Contact Info) Description 07/22/2024 2:00 PM EDT Office Visit [facility] OPTOMETRY [address] [place], [place] [phone] Leidy Cerna, OD [address] [place], [place] [phone] documented as of this encounter Visit Diagnoses Diagnosis Bartholin gland cyst Cyst of Bartholin's gland documented in this encounter Care Teams Family Service Assistant Relationship Specialty Start Date End Date Linda Damon MD 230 [place], [place] [phone] PCP - General Family Medicine 12/14/20 07/15/22 Sharon Lopez MD [address] [place], [place] [phone] PCP - General Internal Medicine 07/16/22 documented as of this encounter
== END 2024-04-08 13:53 | disposition home or self-care (01) ==
PROVIDERS: PCP Student in an Organized Health Care Education/Training Program; Visit Provider Registered Nurse Diabetes Educator
DX: E11.65 Type 2 diabetes mellitus with hyperglycemia (principal)

== ENCOUNTER → 2024-04-08 13:06 | Outpatient (BNVA) | payer MEDICAID, SELFPAY | PROVIDERS: PCP Student in an Organized Health Care Education/Training Program; Visit Provider Registered Nurse Diabetes Educator | DX: E11.65 Type 2 diabetes mellitus with hyperglycemia (principal); Z79.4 Long term (current) use of insulin; Z79.84 Long term (current) use of oral hypoglycemic drugs | CPT/HCPCS: 99211 ==

== ENCOUNTER 2024-04-26 14:53 | Outpatient (AMB) | payer MEDICAID, SELFPAY ==
[2024-04-26 14:55] VITALS: BP 118/72; PULSE 84; O2SAT 96; BMI 34.7
--- NOTE | 2024-04-26 14:55 | A.OFFVIS_ITS ---
Vital Signs 04/26/24 14:55 Height 5 ft 2 in Weight 189 lb 9.561 oz BMI 34.7 BP 118/72 Blood Pressure Location Rt brachial Position Sitting Pulse 84 Pulse Source Pulse Oximeter Pulse Oximetry (%) 96 Oxygen Delivery Method Room Air Intake Visit Reasons: DM Intake Note: Patient presents today for a follow-up on Type 2 Diabetes Mellitus: Last Diabetic eye exam was on: DUE Last Podiatry exam was on: Patient does not see a Claim Benefit Specialist Most recent HbA1c: 8.0%, 04/26/2024 Random Glucose- 219 mg/dL, Today Soda Fountain Operator Required: Yes Soda Fountain Operator Language: Transcribing Machine Mechanic Name: CHKAA Archer/JORDAN KAY Information Interpreted: non-clinical & clinical Accompanied by: Daughter Allergies No Known Allergies Allergy (Verified 04/26/24 14:56) HPI HPI DM: Details: Patient is a 59-year-old female with a significant past medical history of anxiety, depression, overactive bladder, hyperlipidemia, and diabetes presenting today for a diabetic follow-up. Last saw myself in the summer. Follow diabetic Education in May. Daphne is here today to help with translation. Daughter was present for today's visit as well. Patient never got labs prior to today's appointment. Her A1c today is 8. She is currently on Mounjaro 10 mg weekly, metformin 1000 mg twice a day, lispro 22 u with meals, Toujeo 52 units nightly. CGM- active 95 %, average glucose 157 glucose variability 28 %. Very high 3 %, high 24 %, in range 72 %, 1% hypoglycemicfrom Mar 2024 Today- last 2 weeks 54% hyperglycemic and in range 46% -she states it was elevated the last couple of weeks because she has had bronchitis and was on large doses of prednisone. She is currently off of the steroids. She is not on an MALLORY-inhibitor. Cholesterol is controlled with atorvastatin 80 mg and Zetia 10 mg. she states that if she were to get a low blood sugar she would drink soda or have candy. Low blood sugars are very rare. [facility] Medical History Uncontrolled type 2 diabetes mellitus with hyperglycemia Surgical History History of section History of surgery History of removal of cyst Family History Mother Medical history unknown Father Cancer Social History Alcohol intake: never Patient Tobacco Use Status: Current someday Tobacco user Physical Exam Vital Signs: Last Vital Signs Pulse 84 04/26/24 14:55 BP 118/72 04/26/24 14:55 Pulse Ox 96 04/26/24 14:55 Oxygen Delivery Method Room Air 04/26/24 14:55 BMI result Body Mass Index 34.7 Const Orientation/consciousness: patient oriented x3 Neck Neck: Yes no lymphadenopathy Thyroid: Thyroid normal Carotids: no bruits Resp Auscultation: clear to auscultation bilaterally Cardio Rate: regular rate Rhythm: regular rhythm Heart sounds: S1 normal heart sound present and S2 normal heart sound present Peripheral pulses: dorsalis pedis present Neuro General: patient oriented x3, gait normal and no focal motor deficits Extrem Other: Monofilament sensation intact bilaterally. Vibratory sensation intact bilaterally. Skin intact. General: Yes normal to inspection Results AMB Hemoglobin A1c AMB Hemoglobin A1c 8.0 % Last Edit by CHAKA Archer on 04/26/24 15:20 Results Reviewed Results Reviewed: Laboratory Last Values Glucose (Clinic) 219 mg/dL (60-115) H 04/26/24 15:02 Hgb A1c (Clinic) 8.0 % (4.0-6.0) H 04/26/24 15:04 Laboratory Tests 10/25/22 10/25/22 04/29/23 12:29 12:44 13:19 Creatinine 0.71 Estimated GFR > 60 Hgb A1c (Clinic) 10.6 H Triglycerides Cholesterol LDL Cholesterol, Calc HDL Cholesterol Urine Creatinine 117.70 Urine Microalbumin 9.0 Microalb/Creat Ratio 7.6 08/27/23 09/01/23 11:42 13:13 Creatinine Estimated GFR Hgb A1c (Clinic) 9.4 H Triglycerides 139 Cholesterol 194 LDL Cholesterol, Calc 120 H HDL Cholesterol 47 Urine Creatinine Urine Microalbumin Microalb/Creat Ratio Assessment & Plan Assessment & Plan (1) Uncontrolled type 2 diabetes mellitus with hyperglycemia: Code(s): E11.65 - Type 2 diabetes mellitus with hyperglycemia Category: Medical Plan: continue metformin 1000 mg twice increase mounjaro to 12.5 mg weekly increase toujeo to 60 units increase lispro to 25 units with meals discussed rules of 15s (2) Hyperlipidemia: Code(s): E78.5 - Hyperlipidemia, unspecified Category: Medical Plan: Continue atorvastatin and Zetia. Lipids and LFTs ordered. Orders: Orders B Type Natriuretic Peptide Today E11.65 - Type 2 diabetes mellitus with hyperglycemia, E78.5 - Hyperlipidemia, unspecified Comprehensive [place]. Panel Fast Today E11.65 - Type 2 diabetes mellitus with hyperglycemia, E78.5 - Hyperlipidemia, unspecified Microalbumin, Random (w Creat) Today E11.65 - Type 2 diabetes mellitus with hyperglycemia, E78.5 - Hyperlipidemia, unspecified Lipid Panel Today E11.65 - Type 2 diabetes mellitus with hyperglycemia, E78.5 - Hyperlipidemia, unspecified Hemoglobin A1c Today R73.01 - Impaired fasting glucose AMB Hemoglobin A1c Today E11.65 - Type 2 diabetes mellitus with hyperglycemia Medications: New tirzepatide (Mounjaro) 12.5 mg (0.5 mL) subcut QWEEK 2 mL 4RF Changed From insulin lispro 45 units before breakfast, 45 units before lunch and 30 units before supper subcutaneously; 4 weeks 45 mL 4RF To insulin lispro 25 units three times a day with meals 4 weeks 45 mL 4RF From insulin glargine U-300 conc (Toujeo Max U-300 SoloStar) 50 units (0.1667 mL) subcut DAILY 6 mL 3RF To insulin glargine U-300 conc (Toujeo Max U-300 SoloStar) 60 units (0.2 mL) subcut DAILY 6 mL 3RF Discontinued tirzepatide (Mounjaro) Discontinued Reason: Doctor's Order 10 mg (0.5 mL) subcut QWEEK 2 mL 11RF Patient Instructions: continue metformin 1000 mg twice increase mounjaro to 12.5 mg weekly increase toujeo to 60 units increase lispro to 25 units with meals Coding Level of Care Code Est Pt Level 4 (14186) Complex EM visit Add On G2211 Diagnoses Uncontrolled type 2 diabetes mellitus with hyperglycemia E11.65 Hyperlipidemia E78.5
[2024-04-26 15:07] LABS: Glucose, Whole Blood 219 mg/dL (60-115)
--- OUTSIDE RECORDS SUMMARY | 2024-04-26 17:04 | XMS_ITS | Encounter Summary ---
Author Organization [employer] Address [address] [place] [address] 7 [place] [address] Care Team Providers Care Raisin Separator Operator Name Role Phone Sharon Lopez MD Primary Care Pro vider Reason for Visit * Reason Comments Med Refill Encounter Details Date Type Department Care Team ([facility] st Contact Info) Description 06/26/2023 Refill [facility] MEDICINE 230 [place], [place] [phone] Sharon Lopez MD 230 [place], [place] [phone] Type 2 diabetes mellitus with hyperglycemia, with long-term current use of insulin ([facility]) Social History Tobacco Use Types Packs/Day Years [...] Description 07/22/2024 2:00 PM EDT Office Visit [facility] OPTOMETRY [address] [place], [place] [phone] Leidy Cerna, OD [address] [place] [address] documented as of this encounter Goals Goal [...] hyperglycemia, with long-term current use of insulin ([facility]) documented in this encounter Additional Health Concerns Assessment Noted Time PHQ-9 Depression Total Score: 14 023 10:55 AM EDT documented as of this encounter Care Teams Raisin Separator Operator Relationship Specialty Start Date End Date Sharon Lopez MD [address] [place], [place] [phone] PCP - General Internal Medicine 07/16/22 documented as of this encounter
--- OUTSIDE RECORDS SUMMARY | 2024-04-26 17:04 | XMS_ITS | Encounter Summary ---
Author Organization [employer] Address [address] [facility] 7t [place] [address] Care Team Providers Care Cosmetic Sales Advisor Name Role Phone Sharon Lopez MD Primary Care Pro vider Encounter Details Date Type Department Care Team (Late st Contact Info) Description 04/26/2024 Orders Only GENERIC EXTERNAL DATA DEPARTMENT Provider, Generic External Data Social History Tobacco Use Types Packs/Day Years [...] Description 07/22/2024 2:00 PM EDT Office Visit [facility] OPTOMETRY [address] [place] [address] Leidy Cerna, OD [address] [place] [address] documented as of this encounter Goals Goal Patient Goal Type Associated Problems Recent Progress Patient-Stated? Author Blood Pressure < 140/90 Blood Pressure 120/66(2023 2:32 PM EDT) No Jorge Terrell PharmD Hemoglobin A1c < 7 Result Component 10(07/24/2023 1:10 PM EDT) No Jorge Terrell PharmD documented as of this encounter Procedures Procedure Name Priority Date/Time Associated Diagnosis Comments GLUCOSE, WHOLE BLOOD Routine 04/26/2024 3:02 PM EDT documented in this encounter Results * (ABNORMAL) Glucose, Whole Blood (04/26/2024 3:02 PM EDT) Glucose, Whole Blood 219(H) 60 - 115 mg/dL [facility] Comment:METER #: [id number] Testing performed in the Endocrinology Department [address] , [address], [facility]. 04/26/2024 3:02 PM EDT 04/26/2024 3:06 PM EDT us Generic External Data Provider LAB BLOOD ORDERAB LES Final Result [facility] [address] [place] [address] [phone] documented in this encounter Visit Diagnoses Not on filedocumented in this encounter Additional Health Concerns Assessment Noted Time PHQ-9 Depression Total Score: 14 023 10:55 AM EDT documented as of this encounter Care Teams Cosmetic Sales Advisor Relationship Specialty Start Date End Date Sharon Lopez MD [address] [place] [address] PCP - General Internal Medicine 07/16/22 documented as of this encounter
--- OUTSIDE RECORDS SUMMARY | 2024-04-26 17:04 | XMS_ITS | Encounter Summary ---
Author Organization [facility] Address [address] [place] [address] 7t [place] [address] Care Team Providers Care Appraiser Personal Property Name Role Phone Linda Damon MD Primary Care Provider [phone] Sharon Lopez MD Primary Care Pro vider Reason for Visit * Reason Comments Med Refill Encounter Details Date Type Department Care Team ([facility] Contact Info) Description 06/25/2022 Refill [facility] MED & PEDS [address] [place], [place] [phone] Linda Damon MD [address] [place] [address] Gastroesophageal reflux disease, unspecified whether esophagitis present [...] Upcoming Encounters Date Type Department Care Team ([facility] Contact Info) Description 07/22/2024 2:00 PM EDT Office Visit [facility] OPTOMETRY [address] [place], [place] [phone] Leidy Cerna OD [address] [place] [address] documented as of this encounter Visit Diagnoses Diagnosis Gastroesophageal reflux disease, unspecified whether esophagitis present documented in this encounter Additional Health Concerns Assessment Noted Time PHQ-9 Depression Total Score: 2 06/01/19 23 9:31 AM EDT documented as of this encounter Care Teams Appraiser Personal Property Relationship Specialty Start Date End Date Linda Damon MD [address] [place], [place] [phone] PCP - General Family Medicine 12/14/20 07/15/22 Sharon Lopez MD [address] [place], [place] [phone] PCP - General Internal Medicine 07/16/22 documented as of this encounter
--- OUTSIDE RECORDS SUMMARY | 2024-04-26 17:04 | XMS_ITS | Encounter Summary ---
Author Organization [facility] Address [address] [place] [address] 7 [place] [address] Care Team Providers Care Oracle Technical Architect Name Role Phone Sharon Lopez MD Primary Care Pro vider Reason for Visit * Reason Onset Date Comments Appointment Request 08/26/2022 Encounter Details Date Type Department Care Team ([facility] st Contact Info) Description 08/26/2022 Telephone [facility] MEDICINE [address] [place], [place] [phone] Sharon Lopez MD [address] [place] [address] Appointment Request Social History Tobacco Use Types [...] schedule TP appointment. States she missed 08/23. Batt Packer did not see any availability for August. Please contact pt daughter at [phone] documented in this encounter Plan of Treatment Upcoming Encounters Date Type Department Care Team (Late st Contact Info) Description 07/22/2024 2:00 PM EDT Office Visit [facility] OPTOMETRY [address] [place], [place] [phone] Leidy Cerna, OD [address] [place], [place] [phone] documented as of this encounter Visit Diagnoses Not on filedocumented in this encounter Additional Health Concerns Assessment Noted Time PHQ-9 Depression Total Score: 2 06/01/19 23 9:31 AM EDT documented as of this encounter Care Teams Oracle Technical Architect Relationship Specialty Start Date End Date Sharon Lopez MD [address] [place], [place] [phone] PCP - General Internal Medicine 07/16/22 documented as of this encounter
--- OUTSIDE RECORDS SUMMARY | 2024-04-26 17:04 | XMS_ITS | Clinical Summary ---
Author Organization [employer] Address [address] [place] [address] 7t [place] [address] Care Team Providers Care Real Time Operator Name Role Phone Sharon Lopez MD Primary Care Pro vider Allergies Active Allergy Reactions Criticality Noted Date Comments Dust Mite Extract 04/03/2022 Other reaction(s): dust/congestion Medications cetirizine (ZyrTEC) 10 MG tablet Take 1 tablet by mouth 1 (one) time each day. 1 Active metFORMIN (Glucophage) 1000 MG tablet Take 1 tablet by mouth every 12 (twelve) hours. 0 Active sucralfate (Carafate) 1 GM/10ML suspensionIndica tions:Gastroesop hageal reflux disease, unspecified whether esophagitis present As needed for GERD every 8 hours 68221 mL 3 Active Continuous Blood Gluc Sensor (FreeStyle An 2 Sensor) [facility] USE TO MONITOR INTERSTITIAL GLUCOSE CUATRO VECES AL KAYLEE AND CUANDO SEA NECESARIO 2 each 11 3 Active Mounjaro 2.5 MG/0.5ML solution pen-injector Inject 7.5 mg under the skin 1 (one) time per week. 3 Active aspirin 81 MG EC tablet Take 81 mg by mouth in the morning. Active dicyclomine (Bentyl) 20 MG tablet TAKE 1 TABLET BY MOUTH EVERY 8 HOURS 30 tablet 2 3 Active Diclofenac Sodium 1 % gel APPLY 2 GRAMS TO AFFECTED AREA(S) TOPICALLY EVERY MORNING 100 g 1 3 Active ketoconazole (NIZOral) 2 % shampooIndicatio ns:Seborrheic dermatitis APPLY ONCE DAILY INITIALLY, THEN TWICE WEEKLY 120 mL 2 3 Active estradiol (Estrace) 0.1 MG/GM vaginal cream APPLY 1 GRAM VAGINALLY TWICE WEEKLY AT BEDTIME 3 Active traZODone (Desyrel) 100 MG tabletIndication s:Prescribed by new psychiatrist Marilyn Todd Take 1-2 tablets by mouth at bedtime Active venlafaxine XR (Effexor XR) 75 MG 24 hr capsuleIndicatio ns:Prescribed by new psychiatrist Marilyn Todd Take 1 capsule by mouth daily with 37.5 mg capsule (AZS=152.5 mg) for 2 weeks Active venlafaxine (Effexor) 37.5 MG tablet TOME RAMEZ TABLETA POR V A ORAL TODOS LOS D (WITH 75MG) 3 Active insulin lispro (HumaLOG) 100 UNIT/ML injectionIndicat ions:Type 2 diabetes mellitus with hyperglycemia, with long-term current use of insulin ([facility]) INJECT 4UNITS POR SUBCUTANEA 3VECES AL KAYLEE ANTES DE LAS COMIDAS IF GLUCOSE >150-199 MG/DL, INCREASE 1 UNIT EVERY 50 MG/DL INCREASE IN GLUCOSE (MAX 36 UNITS/DAY, IF HIGHER THEN 400 MG/DL CALL MD) 15 mL 5 4 Active risperiDONE (RisperDAL) 0.25 MG tablet TOME RAMEZ TABLETA POR V A ORAL TODOS LOS D 4 Active insulin glargine (Lantus SoloStar) 100 UNIT/ML pen INJECT 52 UNITS UNDER THE SKIN IN THE MORNING. 15 mL 3 4 Active docusate sodium (Colace) 100 MG capsule TAKE 1 CAPSULE BY MOUTH TWICE DAILY NEEDED FOR CONSTIPATION 180 capsule 4 Active D3 Super Strength 50 MCG (1999 UT) capsule TAKE 1 CAPSULE BY MOUTH EVERY MORNING 90 capsule 1 4 Active dapagliflozin (Farxiga) 10 MGIndications:Ty pe 2 diabetes mellitus with hyperglycemia, with long-term current use of insulin ([facility]) TAKE 1 TABLET BY MOUTH EVERY EVENING 90 tablet 1 4 Active mirabegron ER (Myrbetriq) 25 MG 24 hr tablet TAKE 1 TABLET BY MOUTH EVERY MORNING 90 tablet 1 4 Active famotidine (Pepcid) 40 MG tablet TAKE 1 TABLET BY MOUTH AT BEDTIME 90 tablet 1 4 Active pantoprazole (ProtoNix) 40 MG EC tablet TAKE 1 TABLET BY MOUTH EVERY MORNING BEFORE BREAKFAST 90 tablet 1 4 Active atorvastatin (Lipitor) 80 MG tablet TAKE 1 TABLET BY MOUTH EVERY MORNING 90 tablet 1 4 Active lisinopril 10 MG tablet TAKE 1 TABLET BY MOUTH EVERY MORNING 90 tablet 5 Active Active Problems Problem Noted Date Diagnosed Date [...] Encounters Date Type Department Care Team Description 04/26/2024 Orders Only GENERIC EXTERNAL DATA DEPARTMENT Provider, Generic External Data 03/16/2024 Refill [facility] MED & PEDS [address] [place] [address] Sharon Lopez MD from Last 3 Months [...] Description 07/22/2024 2:00 PM EDT Office Visit [facility] OPTOMETRY [address] [place] [address] Leidy Cerna, OD [address] [place] [address] Health Maintenance Due Date Last Done Comments [...] of 2) 06/10/2023 04/15/2023 COVID-19 Vaccine ( - season) 2023 Influenza Vaccine (#1) 2023 10/25/2022 [...] Blood Pressure 120/66(2023 2:32 PM EDT) No Terrell, Jorge, PharmD Hemoglobin A1c < 7 Result Component 10(07/24/2023 1:10 PM EDT) No Jorge Terrell PharmD Procedures Procedure Name Priority Date/Time Associated Diagnosis Comments GLUCOSE, WHOLE BLOOD Routine 04/26/2024 3:02 PM EDT THINPREP IMAGING PAP AND HPV MRNA E6/E7 Routine 09/02/2023 2:56 PM EDT LIPID PANEL, STANDARD Routine 08/27/2023 11:42 AM EDT POCT GLYCATED HEMOGLOBIN, TOTAL Routine 07/24/2023 1:10 PM EDT Type 2 diabetes mellitus with hyperglycemia, with long-term current use of insulin ([facility]) BI MAMMOGRAM SCREENING TOMOSYNTHESIS BILATERAL Routine 11/08/2022 1:00 PM EDT ALBUMIN, RANDOM URINE W/CREATININE Routine 10/25/2022 12:44 PM EDT Health care maintenance HEPATITIS C AB W/REFL TO HCV RNA, QN, PCR Routine 10/25/2022 12:29 PM EDT Health care maintenance HIV ANTIBODY/ANTIGEN ([place] DP) Routine 10/25/2022 12:29 PM EDT from Last 3 Months or Most Recently Relevant to Health Maintenance Results * (ABNORMAL) Glucose, Whole Blood (04/26/2024 3:02 PM EDT) Glucose, Whole Blood 219(H) 60 - 115 mg/dL [facility] Comment:METER #: [id number] Testing performed in the Endocrinology Department [address] , [address], [place]. 04/26/2024 3:02 PM EDT 04/26/2024 3:06 PM EDT us Generic External Data Provider LAB BLOOD ORDERAB LES Final Result [facility] [address] [place] [address] [phone] * ThinPrep Imaging Pap and HPV mRNA E6/E7 (09/02/2023 2:56 PM EDT) HPV nRNA E6/E7 Not Detected Not Detected [facility] Comment:Methodology: Transcr iption-Mediated AmplificationThis assay detects E6/E7 viral messenger RNA (mRNA) from 14high-risk HPV types (16,18,31,33,35,39,45,51,52,56,58,59,66,68).Cervical sources are required for HPV testing.If a vaginal source from a patient who has had atotal hysterectomy with removal of cervix wassubmitted, please contact the testing laboratoryfor alternative testing options.For additional information, please refer tohttp://education.Gen[employer] Expression/faq/YPY690b4(This link if provided for information/educational purposes only.)THIS TEST WAS PERFORMED AT:[employer] [address] [id number] DOZIER MD SOURCE: SEE NOTE [facility] Comment:None given Report Status: [facility] Clinical Information: SEE NOTE [facility] Comment:None given LMP: SEE [facility] Comment:NONE GIVEN Prev. PAP: SEE NOTE [facility] Comment:NONE GIVEN Prev. BX: SEE NOTE [facility] Comment:NONE GIVEN Statement Of Adequacy: SEE NOTE [facility] Comment:Satisfactory for ella luation.Endocervical/transformation zone componentpresent. General Categorization: [facility] Interpretation/Result: SEE NOTE [facility] Comment:Cytology Results: Ne gative for intraepitheliallesion or malignancy. Cytology Comment SEE NOTE [facility] Comment:This Pap test has be en evaluated with computerassisted technology. Director Of Annual Giving: SEE NOTE [facility] Comment:RXB, CT(ASCP)CT scre ening location: [place] [address] Review Director Of Annual Giving: [facility] Pathologist TNP [facility] PAP Infection TNP [facility] See Note SEE NOTE [facility] Comment:EXPLANATORY NOTE:The Pap is a screening test for cervical cancer. It isnot a diagnostic test and is subject to false negativeand false positive results. It is most reliable when asatisfactory sample, regularly obtained, is submittedwith relevant clinical findings and history, and whenthe Pap result is evaluated along with historic andcurrent clinical information. 09/02/2023 2:56 PM EDT 09/02/2023 4:50 PM EDT Narrative [facility] - 09/10/2023 2:42 PM EDT SEE SCANNED RESULTS IN EMRRCERVIX us Mariya MORRIS LAB PATHOLOGY ORDERABLES Final Result [facility] [address] [place] [address] [phone] * (ABNORMAL) Lipid Panel, Standard (08/27/2023 11:42 AM EDT) Triglycerides 139 <150 mg/dL [facility] Comment:Desirable Triglyceri de: less than 150 mg/dLBorderline High Triglyceride 150-199 mg/dLHigh Triglyceride: 200-499 mg/dLVery High Triglyceride: greater than or equal to 5OO mg/dL Cholesterol 194 <200 mg/dL [facility] Comment:Desirable Cholestero l: less than 200 mg/dLBorderline High Cholesterol: 200-239 mg/dLHigh Cholesterol: greater than 239 mg/dL LDL Cholesterol Calculated 120(H) <100 mg/dL [facility] Comment:Desirable LDL: less than 100 mg/dLNear Optimal/Above Optimal LDL: 110- 129 mg/dLBorderline High LDL: 130-159 mg/dLHigh LDL: 160-189 mg/dLVery High LDL: greater than or equal to 190 mg/dL HDL Cholesterol 47 >40 mg/dL [facility] Comment:Desirable HDL: great er than 40 mg/dL Note: This HDL assay may give artificially low results in patients with liver disease. 08/27/2023 11:4 2 AM EDT 08/27/2023 11:42 AM EDT us Generic External Data Provider LAB BLOOD ORDERAB LES Final Result [facility] [address] [facility] [place] [address] [phone] * (ABNORMAL) POCT HGB A1C (07/24/2023 1:10 PM EDT) Hemoglobin A1C 10.0(A) 4.0 - 6.0 % QC Media Lot # [id number] Lot# Expiration Date [id number] Blood 07/24/2023 1:10 PM EDT us Sharon Peña MD POINT OF CARE NARESH T ENTER/EDIT ORDERABLES Final Result * BI Mammogram Screening Tomosynthesis Bilateral (11/08/2022 1:00 PM EDT) Anatomical Region Laterality Modality Breast Bilateral Mammography 11/08/2022 1:00 PM EDT Narrative 11/17/2022 10:37 PM EDT ? [facility] [place] ? [address] ?[place] [address] ? Mammography Report ? Signed ? Patient: Martir,Aminata ?MR#: [id number] ?? 90 ? : 1965 ?Acct:[id number] ? Age/Sex: 57 / F ?ADM Date: 09/22/23 ? Loc: HO.MAMMO ? Attending Dr: Sharon Peña MD ? Ordering Physician: Sharon Lopez MD ?Re ?? sults: 1Negative ? Date of Service: 11/08/22 ?Follow Up: 1 Year From Orig ?? inal Mammogram ? Procedure(s): MM tomosynthesis screening BI ?? Accession Number(s): [id number] ? cc: Sharon Lopez MD ? EXAMINATION: [...] their next mammogram. ? Dictated By: ?Gabbi Carpio MD ? Signed By: ?<Electronically signed by Gabbi Carpio MD in OV> ? 11/17/222232 ? DD/ 1300 ? TD/TT: ? Engine Maintenance Mechanic: ? Procedure Note Genia Escoto - 11/17/2022 [facility] [address] [place], [place] [address] Mammography Report Signed Patient: Aminata McmahanMR#: [id number] 90 : 1965Acct:[id number] Age/Sex: 57 / FADM Date: 11/08/22 [facility]: Sharon Peña MD Ordering Physician: Sharon Lopez sults: 1Negative Date of Service: 11/08/22Follow Up: 1 Year From Orig ina Mammogram Procedure(s): MM tomosynthesis screening BI Accession Number(s): [id number] cc: Sharon Lopez MD EXAMINATION: MM SCREENING [...] in OV> 11/17/22 2233 DD/ 1300 TD/TT: Engine Maintenance Mechanic: us Sharon Peña MD IMG BI PROCEDURES Final Result * Albumin, Random Urine W/Creatinine (10/25/2022 12:44 PM EDT) Creatinine, Urine 117.70 mg/dL [facility] Microalbumin Urine 9.0 mg/L H [facility] Microalbum Creatinine Ratio Ur 7.6 <30 ug/mg cr [facility] Comment:Albumin/Creatinine R atio Reference Ranges: Normal: < 30 ug/mg creatinine Microalbuminuria: 30 - 300 ug/mg creatinineClinical Albuminuria: > 300 ug/mg creatinine Urine 10/25/2022 12:4 4 PM EDT 10/25/2022 1:04 PM EDT us Sharon Peña MD LAB URINE ORDERAB LES Final Result Performing Organization Address [facility]/ZIP Co de Phone Number [facility] [address] [place] [phone] * HIV Ab/Ag ([facility]) (10/25/2022 12:29 PM EDT) HIV AB/AG Nonreactive Nonreactive [facility] Comment:HIV-1 p24 Ag and/or HIV-1/HIV-2 Ab not detected.A test result that is nonreactive does not exclude thepossibility of exposure to or infection with HIV-1 and/orHIV-2. Nonreactive results in this assay for individualswith prior exposure to HIV-1 and/or HIV-2 may be due toantigen and antibody levels that are below the limit ofdetection of this assay.The [employer] HIV Ag/Ab Combo assay result andsupplemental assay results should be interpreted inconjunction with the patient's clinical presentation,history and other laboratory results. If the results areinconsistent with clinical evidence, additional testing issuggested to confirm the result. 10/25/2022 12:2 9 PM EDT 10/25/2022 1:02 PM EDT us Sharon Peña MD LAB BLOOD ORDERAB LES Final Result Performing Organization Address [facility]/ZIP Co de Phone Number [facility] [address] [place] [phone] * (ABNORMAL) Hepatitis C Antibody with Reflex to HCV, RNA, Quantitative, Real- Time PCR (10/25/2022 12:29 PM EDT) Hepatitis C Antibody Reactive( A) Nonreactive [facility] Comment:Presumptive evidence of antibodies to HCV. Blood Venous blood specimen / Unknown 10/25/2022 12:29 PM EDT 10/25/2022 1:02 PM EDT Sharon Peña MD LAB BLOOD ORDERAB LES Final Result [facility] [address] [place] [address] [phone] from Last 3 Months or Most Recently Relevant to Health Maintenance Insurance C3 Care Teams Real Time Operator Relationship Specialty Start Date End Date Sharon Lopez MD [address] [place] [phone] PCP - General Internal Medicine 07/16/22
--- OUTSIDE RECORDS SUMMARY | 2024-04-26 17:04 | XMS_ITS | Encounter Summary ---
Author Organization [employer] Address [address] [place] [address] 7 [place] [address] Care Team Providers Care Field Return Repairer Name Role Phone Sharon Lopez MD Primary Care Pro vider Reason for Visit * Reason Onset Date Comments Med Refill 11/17/2023 Encounter Details Date Type Department Care Team ([facility] st Contact Info) Description 11/17/2023 Telephone [facility] MEDICINE [address] [place], [place] [phone] Sharon Lopez MD [address] [place], [place] [phone] Med Refill Social History Tobacco Use Types [...] MG/0.5ML solution pen-injector To be sent to: [facility] - [place], [place] - [address] [facility] documented in this encounter Plan of Treatment Upcoming Encounters Date Type Department Care Team (Late st Contact Info) Description 07/22/2024 2:00 PM EDT Office Visit [facility] OPTOMETRY [address] [place] [address] Leidy Cerna, OD [address] [place] [address] documented as of this encounter Goals Goal [...] documented as of this encounter Care Teams Field Return Repairer Relationship Specialty Start Date End Date Sharon Lopez MD [address] [place] [phone] PCP - General Internal Medicine 07/16/22 documented as of this encounter
--- OUTSIDE RECORDS SUMMARY | 2024-04-26 17:04 | XMS_ITS | Encounter Summary ---
Author Organization [employer] [facility] Address [address] [place] [address] 7t [place] [address] Care Team Providers Care Licensed Massage Practitioner Name Role Phone Linda Damon MD Primary Care Provider [phone] Sharon Lopez MD Primary Care Pro vider Reason for Visit * Reason Comments Med Change Request Encounter Details Date Type Department Care Team ([facility] Contact Info) Description 04/03/2022 Refill [facility] MED & PEDS [address] [place], [place] [phone] Farida Bingham MD [address] [place] [address] Bartholin gland cyst Social History Tobacco Use [...] Upcoming Encounters Date Type Department Care Team ([facility] Contact Info) Description 07/22/2024 2:00 PM EDT Office Visit [facility] OPTOMETRY [address] [place], [place] [phone] Leidy Cerna, OD [address] [place], [place] [phone] documented as of this encounter Visit Diagnoses Diagnosis Bartholin gland cyst Cyst of Bartholin's gland documented in this encounter Care Teams Licensed Massage Practitioner Relationship Specialty Start Date End Date Linda Damon MD [address] [place], [place] [phone] PCP - General Family Medicine 12/14/20 07/15/22 Sharon Lopez MD [address] [place], [place] [phone] PCP - General Internal Medicine 07/16/22 documented as of this encounter
--- OUTSIDE RECORDS SUMMARY | 2024-04-26 17:04 | XMS_ITS | Encounter Summary ---
Author Organization [employer] Address [address] [place] [address] 7 [place] [address] Care Team Providers Care City Marshal Name Role Phone Sharon Lopez MD Primary Care Pro vider Reason for Visit * Reason Onset Date Comments Triage 07/16/2022 Encounter Details Date Type Department Care Team ([facility] st Contact Info) Description 07/16/2022 Telephone [facility] MEDICINE [address] [place], [place] [phone] Sharon Lopez MD [address] [place] [address] Triage Social History Tobacco Use Types Packs/Day [...] No answer LVM to return call to [facility] triage line. Protocol Used: No Contact or Duplicate Contact Call (Adult) Protocol-Based Disposition: No Contact Call Positive Triage Question: * Message left on identified voicemail * All higher-acuity triage questions were negative * Telephone Encounter - Izabel Mosley RN - 07/16/2022 3:10 PM EDT Call returned to patient for triage. No answer LVM to return call to [facility] triage line. Left [facility] opearting hours as well. Protocol Used: No [...] The caller accepted this outcome Patient speaks macedonian. documented in this encounter Plan of Treatment Upcoming Encounters Date Type Department Care Team (Late st Contact Info) Description 07/22/2024 2:00 PM EDT Office Visit [facility] OPTOMETRY [address] [place] [address] Leidy Cerna OD [address] [place] [address] documented as of this encounter Visit Diagnoses Not on filedocumented in this encounter Additional Health Concerns Assessment Noted Time PHQ-9 Depression Total Score: 2 06/01/19 23 9:31 AM EDT documented as of this encounter Care Teams City Marshal Relationship Specialty Start Date End Date Sharon Lopez MD [address] [place] [address] PCP - General Internal Medicine 07/16/22 documented as of this encounter
== END 2024-04-26 15:20 | disposition home or self-care (01) ==
PROVIDERS: PCP Student in an Organized Health Care Education/Training Program; Visit Provider Physician Assistant
DX: E11.65 Type 2 diabetes mellitus with hyperglycemia (principal); E78.5 Hyperlipidemia, unspecified

== ENCOUNTER → 2024-04-26 14:53 | Outpatient (BNVA) | payer MEDICAID, SELFPAY | PROVIDERS: PCP Student in an Organized Health Care Education/Training Program; Visit Provider Physician Assistant | DX: E11.65 Type 2 diabetes mellitus with hyperglycemia (principal); E78.5 Hyperlipidemia, unspecified | CPT/HCPCS: 82947; 83036; 99212 ==

== ENCOUNTER 2024-05-06 14:59 | Outpatient (AMB) | payer MEDICAID, SELFPAY ==
--- NOTE | 2024-05-06 15:09 | A.OFFVIS_ITS ---
Intake Intake Visit Reasons: DM [employer] Con[employer] Ironworker Required: Yes [employer] Con[employer] Ironworker Language: Entry Examiner Name[place] [facility] [place]panied by: Daughter Allergies No Known Allergies Allergy (Verified 04/26/24 14:56) HPI Comprehensive Diabetes Asmnt Most Recent Diabetes Results: Microalb/Creat Ratio 7.6 ug/mg cr (<30) 10/25/22 Cholesterol 194 mg/dL (<200) 08/27/23 HDL Cholesterol 47 mg/dL (>40) 08/27/23 Triglycerides 139 mg/dL (<150) 08/27/23 Creatinine 0.71 mg/dL (0.5-1.4) 10/25/22 Blood Urea Nitrogen 11 mg/dL (9-16) 10/25/22 Sodium 138 mmol/L (135-145) 10/25/22 Potassium 4.1 mmol/L (3.3-5.1) 10/25/22 Chloride 103 mmol/L (96-108) 10/25/22 Carbon Dioxide 27 mmol/L (22-29) 10/25/22 Calcium 10.3 mg/dL (8.4-10.2) H 10/25/22 AST 12 U/L (5-31) 10/25/22 ALT 13 U/L (0-31) 10/25/22 Total Protein 7.3 g/dL (6.5-8.0) 10/25/22 Albumin 4.1 g/dL (3.5-5.0) 10/25/22 [facility] Medical History Uncontrolled type 2 diabetes mellitus with hyperglycemia Surgical History History of section History of surgery History of removal of cyst Family History Mother Medical history unknown Father Cancer Social History Alcohol intake: never Patient Tobacco Use Status: Current someday Tobacco user Assessment & Plan Assessment & Plan (1) Uncontrolled type 2 diabetes mellitus with hyperglycemia: Code(s): E11.65 - Type 2 diabetes mellitus with hyperglycemia Plan: Personal Continuous Glucose Monitor: Patients CGM information reviewed, Pt uses An 3 with reader Sensor data: Hypoglycemia: ? 0% Hyperglycemia:? 31% Time in Range:? 69% Average glucose for the last 2 weeks?163 mg/dL Glucose levels have improved since visit with PA on 04/26/2024 At that visit patient's Toujeo was increased to 60 units daily Humalog 25 units before meals Mounjaro 12.5 mg weekly Patient reports she will start higher dose of Mounjaro next week Discussed with patient how increase diabetes medications and weight loss can affect glucose levels Hypo instructions ? When first signs of insulin reaction occur, immediately drink orange juice or cola, or suck on a sugar cube, but only if the person is conscious. ? Person with diabetes should continue taking insulin when ill, unless he/she is not able to eat.? Regularly check blood sugar or urine for sugar and acetone during illness. ? Exercise regularly. ? Pay special attention to the feet.? Avoid cuts, sores, blisters, ill- fitting shoes, or going barefoot.? Promptly treat injuries to the feet. ? Take medications as directed by physician. ? Drink extra water or noncaffeinated, nonsugared drinks to prevented hydration. Signs and symptoms of low blood sugar (happen quickly) Each person's reaction to low blood sugar is different. Learn your own signs and symptoms of when your blood sugar is low. Taking time to write these symptoms down may help you learn your own symptoms of when your blood sugar is low. From milder, more common indicators to most severe, signs and symptoms of low blood sugar include: Feeling shaky Being nervous or anxious Sweating, chills and clamminess Irritability or impatience Confusion Fast heartbeat Feeling lightheaded or dizzy Hunger Nausea Color draining from the skin (pallor) Feeling Sleepy Feeling weak or having no energy Blurred/impaired vision Tingling or numbness in the lips, tongue, or cheeks Headaches Coordination problems, clumsiness Hypoglycemia or blood glucose under 70 use the rule of 15's: If you have your blood glucose meter test your blood glucose, if you do not have your meter still follow below instruction: Keep quick-sugar foods with you at all times.? Take 15 grams of fast acting carbohydrates. Examples are 4 ounces of fruit juice or regular soda pop, 8 ounces fat-free milk, 1 tablespoon of table sugar, honey or corn syrup, jam, one miniature box of raisins, 7-8 gumdrops or Life Savers candy, 4 glucose tablets, and glucose gel.? Retest blood glucose in 15 minutes, if blood glucose is still under 80,repeat rule of 15's. If blood glucose is under 50, take 30 grams of fast acting carbohydrates If you are having hypoglycemia, or insulin reaction, more that a few times a week, call MD or childbirth educator Patient given hypoglycemia handout in Maori F/U BG check Patient able to insert sensor independently at home without issue.? Portions of this note were created using voice recognition software, please excuse any words or phrases that may have been misinterpreted. Coding Level of Care Code Est Pt Level 1 (92758) Diagnoses Uncontrolled type 2 diabetes mellitus with hyperglycemia E11.65
--- OUTSIDE RECORDS SUMMARY | 2024-05-06 17:24 | XMS_ITS | Clinical Summary ---
Author Organization [employer] Address [address] [place] [address] 7t [place] [address] Care Team Providers Care Employee Training Specialist Name Role Phone Sharon Lopez MD Primary [...] As needed for GERD every 8 hours 39471 mL 3 Active Continuous Blood Gluc Sensor (FreeStyle An 2 Sensor) [facility] USE TO MONITOR INTERSTITIAL GLUCOSE CUATRO VECES [...] by mouth daily with 37.5 mg capsule (LNK=335.5 mg) for 2 weeks Active venlafaxine (Effexor) 37.5 MG tablet TOME RAMEZ TABLETA POR V A ORAL TODOS LOS D (WITH 75MG) 3 Active insulin lispro (HumaLOG) 100 UNIT/ML injectionIndicat ions:Type 2 diabetes mellitus with hyperglycemia, with long-term current use of insulin ([facility]) INJECT 4UNITS POR SUBCUTANEA 3VECES [...] hyperglycemia, with long-term current use of insulin ([facility]) TAKE 1 TABLET BY MOUTH [...] Encounters Date Type Department Care Team Description 04/30/2024 Population Health Risk Score [facility] (C3) Department [address] [phone] Provider, Population Health Generic 04/26/2024 Orders Only GENERIC EXTERNAL DATA DEPARTMENT Provider, Generic External Data 03/16/2024 Refill [facility] MED & PEDS [address] [place] [address] Sharon Lopez MD from Last 3 Months [...] your housing situation today? I have price anette 06/16/[address] you li [...] 2:00 PM EDT Office Visit [facility] OPTOMETRY [address] [place] [address] Leidy Cerna, OD [address] [place] [address] Health Maintenance Due Date Last Done Comments [...] hyperglycemia, with long-term current use of insulin ([facility]) BI MAMMOGRAM SCREENING TOMOSYNTHESIS BILATERAL [...] Whole Blood 219(H) 60 - 115 mg/dL [facility] Comment:METER #: [id number] Testing performed in the Endocrinology Department [address] , [address], [place]. 04/26/2024 3:02 PM EDT 04/26/2024 3:06 PM EDT us Generic External Data Provider LAB BLOOD ORDERAB LES Final Result [facility] [address] [place] [address] [phone] * ThinPrep Imaging Pap and HPV mRNA E6/E7 (09/02/2023 2:56 PM EDT) HPV nRNA E6/E7 Not Detected Not Detected [facility] Comment:Methodology: Transcr iption-Mediated AmplificationThis assay detects E6/E7 viral messenger RNA (mRNA) from 14high-risk HPV types (16,18,31,33,35,39,45,51,52,56,58,59,66,68).Cervical sources are required for HPV testing.If a vaginal source from a patient who has had atotal hysterectomy with removal of cervix wassubmitted, please contact the testing laboratoryfor alternative testing options.For additional information, please refer tohttp://[email or web address] Performance/faq/[email or web address](This link if provided for information/educational purposes only.)THIS TEST WAS PERFORMED AT:[facility] [place] [phone] DOZIER MD SOURCE: SEE NOTE [facility] Comment:None given Report Status: TNP [facility] Clinical Information: SEE NOTE [facility] Comment:None given LMP: SEE NOTE [facility] Comment:NONE GIVEN Prev. PAP: SEE NOTE [facility] Comment:NONE GIVEN Prev. BX: SEE NOTE [facility] Comment:NONE GIVEN Statement Of Adequacy: SEE NOTE [facility] Comment:Satisfactory for ella luation.Endocervical/transformation zone componentpresent. General Categorization: TNP [facility] Interpretation/Result: SEE NOTE [facility] Comment:Cytology Results: Ne gative for intraepitheliallesion or malignancy. Cytology Comment SEE NOTE [facility] Comment:This Pap test has be en evaluated with computerassisted technology. Wait Staff: SEE NOTE [facility] Comment:RXB, CT(ASCP)CT scre ening location: [address] [address] Review Wait Staff: [facility] Pathologist [facility] PAP Infection [facility] See Note SEE NOTE [facility] Comment:EXPLANATORY NOTE:The Pap is a screening test for cervical cancer. It isnot a diagnostic test and is subject to false negativeand false positive results. It is most reliable when asatisfactory sample, regularly obtained, is submittedwith relevant clinical findings and history, and whenthe Pap result is evaluated along with historic andcurrent clinical information. 09/02/2023 2:56 PM EDT 09/02/2023 4:50 PM EDT Narrative [facility] - 09/10/2023 2:42 PM EDT SEE SCANNED RESULTS IN [employer]MRRCERVIX us Mariya MORRIS LAB PATHOLOGY ORDERABLES Final Result [facility] [address] [place] [address] [phone] * (ABNORMAL) Lipid Panel, Standard (08/27/2023 11:42 AM EDT) Triglycerides 139 <150 mg/dL [facility] Comment:Desirable Triglyceri de: less than 150 mg/dLBorderline High Triglyceride 150-199 mg/dLHigh Triglyceride: 200-499 mg/dLVery High Triglyceride: greater than or equal to 5OO mg/dL Cholesterol 194 <200 mg/dL [facility] Comment:Desirable Cholestero l: less than 200 mg/dLBorderline High Cholesterol: 200-239 mg/dLHigh Cholesterol: greater than 239 mg/dL LDL Cholesterol Calculated 120(H) <100 mg/dL [facility] Comment:Desirable LDL: less than 100 mg/dLNear Optimal/Above Optimal LDL: 110- 129 mg/dLBorderline High LDL: 130-159 mg/dLHigh LDL: 160-189 mg/dLVery High LDL: greater than or equal to 190 mg/dL HDL Cholesterol 47 >40 mg/dL [facility] Comment:Desirable HDL: great er than 40 mg/dL Note: This HDL assay may give artificially low results in patients with liver disease. 08/27/2023 11:4 2 AM EDT 08/27/2023 11:42 AM EDT us Generic External Data Provider LAB BLOOD ORDERAB LES Final Result [facility] [address] [place] [address] [phone] * (ABNORMAL) POCT HGB A1C (07/24/2023 1:10 PM EDT) Hemoglobin A1C 10.0(A) 4.0 - 6.0 % QC Media Lot # [id number] Lot# Expiration Date [id number] Blood 07/24/2023 1:10 PM EDT Sharon Peña MD POINT OF CARE NARESH T ENTER/EDIT ORDERABLES Final Result * BI Mammogram Screening Tomosynthesis Bilateral (11/08/2022 1:00 PM EDT) Anatomical Region Laterality Modality Breast Bilateral Mammography 11/08/2022 1:00 PM EDT Narrative 11/17/2022 10:37 PM EDT ? [facility] [place] ? [address] ?[place] [address] ? Mammography Report ? Signed ? Patient: Martir,Aminata ?MR#: [id number] ?? 90 ? : 1965 ?Acct:[id number] ? Age/Sex: 57 / F ?ADM Date: 09/22/23 ? Loc: HO.MAMMO ? Attending Dr: Sharon Peña MD ? Ordering Physician: Sharon Lopez MD ?Re ?? sults: 1Negative ? Date of Service: 11/08/22 ?Follow Up: 1 Year From Orig ?? inal Mammogram ? Procedure(s): MM tomosynthesis screening BI ?? Accession Number(s): [id number] ? cc: Sharon Lopez MD ? EXAMINATION: [...] 11/17/222232 ? DD/ 1300 ? TD/TT: ? Senior Software Engineering Manager: ? Procedure Note Donotuseinterpreter, Image - 11/17/2022 [facility] [address] [place] [address] Mammography Report Signed Patient: Aminata McmahanMR#: [id number] 90 : 1965Acct:[id number] Age/Sex: 57 / FADM Date: 11/08/22 Loc: HO.MAMMO Attending Dr: Sharon Peña MD Ordering Physician: Sharon Lopez sults: 1Negative Date of Service: 11/08/22Follow Up: 1 Year From Orig inal Mammogram Procedure(s): MM tomosynthesis screening BI Accession Number(s): [id number] cc: Sharon Lopez MD EXAMINATION: MM SCREENING [...] in OV> 11/17/22 2233 DD/ 1300 TD/TT: Senior Software Engineering Manager: us Sharon Peña MD IMG BI PROCEDURES Final Result * Albumin, Random Urine W/Creatinine (10/25/2022 12:44 PM EDT) Creatinine, Urine 117.70 mg/dL [facility] Microalbumin Urine 9.0 mg/L [facility] Microalbum Creatinine Ratio Ur 7.6 <30 ug/mg cr [facility] Comment:Albumin/Creatinine R atio Reference Ranges: Normal: < 30 ug/mg creatinine Microalbuminuria: 30 - 300 ug/mg creatinineClinical Albuminuria: > 300 ug/mg creatinine Urine 10/25/2022 12:4 4 PM EDT 10/25/2022 1:04 PM EDT us Sharon Peña MD LAB URINE ORDERAB LES Final Result Performing Organization Address City/[facility]/ZIP Co de Phone Number [facility] [address] [place] [address] [phone] * HIV Ab/Ag ([facility]) (10/25/2022 12:29 PM EDT) HIV AB/AG Nonreactive Nonreactive [facility] Comment:HIV-1 p24 Ag and/or HIV-1/HIV-2 Ab not detected.A test result that is nonreactive does not exclude thepossibility of exposure to or infection with HIV-1 and/orHIV-2. Nonreactive results in this assay for individualswith prior exposure to HIV-1 and/or HIV-2 may be due toantigen and antibody levels that are below the limit ofdetection of this assay.The [employer] HIV Ag/Ab Combo assay result andsupplemental assay results should be interpreted inconjunction with the patient's clinical presentation,history and other laboratory results. If the results areinconsistent with clinical evidence, additional testing issuggested to confirm the result. 10/25/2022 12:2 9 PM EDT 10/25/2022 1:02 PM EDT us Sharon Peña MD LAB BLOOD ORDERAB LES Final Result Performing Organization Address City/[facility]/ZIP Co de Phone Number [facility] [address] [place] [address] [phone] * (ABNORMAL) Hepatitis C Antibody with Reflex to HCV, RNA, Quantitative, Real- Time PCR (10/25/2022 12:29 PM EDT) Hepatitis C Antibody Reactive( A) Nonreactive [facility] Comment:Presumptive evidence of antibodies to HCV. Blood Venous blood specimen / Unknown 10/25/2022 12:29 PM EDT 10/25/2022 1:02 PM EDT Sharon Peña MD LAB BLOOD ORDERAB LES Final Result Performing Organization Address [facility] Co de Phone Number [facility] [address] [place] [address] [phone] from Last 3 Months or Most Recently Relevant to Health Maintenance Insurance C3 Care Teams Employee Training Specialist Relationship Specialty Start Date End Date Sharon Lopez MD [address] [place] [phone] PCP - General Internal Medicine 07/16/22
--- OUTSIDE RECORDS SUMMARY | 2024-05-06 17:24 | XMS_ITS | Encounter Summary ---
Author Organization [employer] Address [address] [facility] 7t [place] [address] Care Team Providers Care Dental Manager Name Role Phone Sharon Lopez MD Primary Care Pro vider Encounter Details Date Type Department Care Team (Late st Contact Info) Description 04/30/2024 Population Health Risk Score [facility] (C3) Department 75 [facility] [address] [place] [address] Provider, Population Health Generic Social History Tobacco Use Types Packs/Day Years [...] Description 07/22/2024 2:00 PM EDT Office Visit [facility] OPTOMETRY [address] [place] [address] Leidy Cerna, HARMONY [address] [place] [address] documented as of this encounter Goals Goal [...] documented as of this encounter Care Teams Dental Manager Relationship Specialty Start Date End Date Sharon Lopez MD [address] [place] [address] PCP - General Internal Medicine 07/16/22 documented as of this encounter
--- OUTSIDE RECORDS SUMMARY | 2024-05-06 17:24 | XMS_ITS | Encounter Summary ---
Author Organization [employer] Address [address] [place] [address] 7 [place] [address] Care Team Providers Care Transit Driver Name Role Phone Sharon Lopez MD Primary Care Pro vider Reason for Visit * Reason Onset Date Comments Triage 07/16/2022 Encounter Details Date Type Department Care Team ([facility] st Contact Info) Description 07/16/2022 Telephone [facility] MEDICINE [address] [place], [place] [phone] Sharon Lopez MD [address] [place] [address] Triage Social History Tobacco Use Types Packs/Day [...] No answer LVM to return call to [facility] triage line. Protocol Used: No Contact or Duplicate Contact Call (Adult) Protocol-Based Disposition: No Contact Call Positive Triage Question: * Message left on identified voicemail * All higher-acuity triage questions were negative * Telephone Encounter - Izabel Mosley RN - 07/16/2022 3:10 PM EDT Call returned to patient for triage. No answer LVM to return call to [facility] triage line. Left [facility] opearting hours as well. Protocol Used: No [...] 07/22/2024 2:00 PM EDT Office Visit [facility] OPTOMETRY [address] [place] [address] Leidy Cerna OD [address] [place] [address] documented as of this encounter Visit Diagnoses Not on filedocumented in this encounter Additional Health Concerns Assessment Noted Time PHQ-9 Depression Total Score: 2 06/01/19 23 9:31 AM EDT documented as of this encounter Care Teams Transit Driver Relationship Specialty Start Date End Date Sharon Lopez MD [address] [place] [address] PCP - General Internal Medicine 07/16/22 documented as of this encounter
--- OUTSIDE RECORDS SUMMARY | 2024-05-06 17:24 | XMS_ITS | Encounter Summary ---
Author Organization [employer] Address [address] [place] [address] 7t [place] [address] Care Team Providers Care Claims Clerk Name Role Phone Linda Damon MD Primary Care Provider [phone] Sharon Lopez MD Primary Care Pro vider Reason for Visit * Reason Comments Med Change Request Encounter Details Date Type Department Care Team ([facility] Contact Info) Description 04/03/2022 Refill [facility] MED & PEDS [address] [place], [place] [phone] Farida Bingham MD [address] [place] [address] Bartholin gland cyst Social History Tobacco Use [...] Upcoming Encounters Date Type Department Care Team ([facility] Contact Info) Description 07/22/2024 2:00 PM EDT Office Visit [facility] OPTOMETRY [address] [place], [place] [phone] Leidy Cerna, OD [address] [place], [place] [phone] documented as of this encounter Visit Diagnoses Diagnosis Bartholin gland cyst Cyst of Bartholin's gland documented in this encounter Care Teams Claims Clerk Relationship Specialty Start Date End Date Linda Damon MD [address] [place], [place] [phone] PCP - General Family Medicine 12/14/20 07/15/22 Sharon Lopez MD [address] [place], [place] [phone] PCP - General Internal Medicine 07/16/22 documented as of this encounter
--- OUTSIDE RECORDS SUMMARY | 2024-05-06 17:24 | XMS_ITS | Encounter Summary ---
Author Organization [employer] Address [address] [place] [address] 7 [place] [address] Care Team Providers Care Casino Operations Supervisor Name Role Phone Sharon Lopez MD Primary Care Pro vider Reason for Visit * Reason Onset Date Comments Med Refill 11/17/2023 Encounter Details Date Type Department Care Team ([facility] st Contact Info) Description 11/17/2023 Telephone [facility] MEDICINE [address] [place], [place] [phone] Sharon Lopez MD [address] [place], [place] [phone] Med Refill Social History Tobacco Use Types [...] MG/0.5ML solution pen-injector To be sent to: [facility] - [place], [place] - [address] [facility] documented in this encounter Plan of Treatment Upcoming Encounters Date Type Department Care Team (Late st Contact Info) Description 07/22/2024 2:00 PM EDT Office Visit [facility] OPTOMETRY [address] [place] [address] Leidy Cerna, OD [address] [place] [address] documented as of this encounter Goals Goal [...] documented as of this encounter Care Teams Casino Operations Supervisor Relationship Specialty Start Date End Date Sharon Lopez MD [address] [place] [phone] PCP - General Internal Medicine 07/16/22 documented as of this encounter
--- OUTSIDE RECORDS SUMMARY | 2024-05-06 17:24 | XMS_ITS | Encounter Summary ---
Author Organization [employer] Address [address] [place] [address] 7 [place] [address] Care Team Providers Care Portfolio Consultant Name Role Phone Sharon Lopez MD Primary Care Pro vider Reason for Visit * Reason Comments Med Refill Encounter Details Date Type Department Care Team ([facility] st Contact Info) Description 06/26/2023 Refill [facility] MEDICINE [address] [place], [place] [phone] Sharon Lopez MD [address] [place], [place] [phone] Type 2 diabetes mellitus with hyperglycemia, with long-term current use of insulin ([facility]) Social History Tobacco Use Types Packs/Day Years [...] Description 07/22/2024 2:00 PM EDT Office Visit [facility] OPTOMETRY [address] [place], [place] [phone] Leidy Cerna, OD [address] [place] [address] documented as of this encounter Goals Goal [...] hyperglycemia, with long-term current use of insulin ([facility]) documented in this encounter Additional Health Concerns Assessment Noted Time PHQ-9 Depression Total Score: 14 023 10:55 AM EDT documented as of this encounter Care Teams Portfolio Consultant Relationship Specialty Start Date End Date Sharon Lopez MD [address] [place], [place] [phone] PCP - General Internal Medicine 07/16/22 documented as of this encounter
--- OUTSIDE RECORDS SUMMARY | 2024-05-06 17:24 | XMS_ITS | Encounter Summary ---
Author Organization [employer] [facility] Address [address] [place] [address] 7t [place] [address] Care Team Providers Care Supervisor Vegetable Farming Name Role Phone Linda Damon MD Primary Care Provider [phone] Sharon Lopez MD Primary Care Pro vider Reason for Visit * Reason Comments Med Refill Encounter Details Date Type Department Care Team ([facility] Contact Info) Description 06/25/2022 Refill [facility] MED & PEDS [address] [place], [place] [phone] Linda Damon MD [address] [place] [address] Gastroesophageal reflux disease, unspecified whether esophagitis present [...] Upcoming Encounters Date Type Department Care Team ([facility] Contact Info) Description 07/22/2024 2:00 PM EDT Office Visit [facility] OPTOMETRY [address] [place], [place] [phone] Leidy Cerna OD [address] [place] [address] documented as of this encounter Visit Diagnoses Diagnosis Gastroesophageal reflux disease, unspecified whether esophagitis present documented in this encounter Additional Health Concerns Assessment Noted Time PHQ-9 Depression Total Score: 2 06/01/19 23 9:31 AM EDT documented as of this encounter Care Teams Supervisor Vegetable Farming Relationship Specialty Start Date End Date Linda Damon MD [address] [place], [place] [phone] PCP - General Family Medicine 12/14/20 07/15/22 Sharon Lopez MD [address] [place], [place] [phone] PCP - General Internal Medicine 07/16/22 documented as of this encounter
--- OUTSIDE RECORDS SUMMARY | 2024-05-06 17:25 | XMS_ITS | Encounter Summary ---
Author Organization [employer] Address [address] [place] [address] 7 [place] [address] Care Team Providers Care Shrinker Name Role Phone Sharon Lopez MD Primary Care Pro vider Reason for Visit * Reason Onset Date Comments Appointment Request 08/26/2022 Encounter Details Date Type Department Care Team ([facility] st Contact Info) Description 08/26/2022 Telephone [facility] [address] [place], [place] [phone] Sharon Lopez MD [address] [place] [address] Appointment Request Social History Tobacco Use Types [...] schedule TP appointment. States she missed 08/23. Safety Instruction Police Officer did not see any availability for August. Please contact pt daughter at [phone] documented in this encounter Plan of Treatment Upcoming Encounters Date Type Department Care Team (Late st Contact Info) Description 07/22/2024 2:00 PM EDT Office Visit [facility] [address] [place], [place] [phone] Leidy Cerna, OD [address] [place], [place] [phone] documented as of this encounter Visit Diagnoses Not on filedocumented in this encounter Additional Health Concerns Assessment Noted Time PHQ-9 Depression Total Score: 2 06/01/19 23 9:31 AM EDT documented as of this encounter Care Teams Shrinker Relationship Specialty Start Date End Date Sharon Lopez MD [address] [place], [place] [phone] PCP - General Internal Medicine 07/16/22 documented as of this encounter
--- OUTSIDE RECORDS SUMMARY | 2024-05-06 17:25 | XMS_ITS | Encounter Summary ---
Author Organization [employer] Address [address] [facility] 7t [place] [address] Care Team Providers Care Glass Vial Filler Name Role Phone Sharon Lopez MD Primary [...] 07/22/2024 2:00 PM EDT Office Visit [facility] [address] [place] [address] Leidy Cerna, OD [address] [place] [address] documented as of this encounter Goals Goal [...] Whole Blood 219(H) 60 - 115 mg/dL [facility] Comment:METER #: [id number] Testing performed in the Endocrinology Department [address] , [address], [facility]. 04/26/2024 3:02 PM EDT 04/26/2024 3:06 PM EDT us Generic External Data Provider LAB BLOOD ORDERAB LES Final Result [facility] [address] [place] [address] [phone] documented in this encounter Visit Diagnoses Not on filedocumented in this encounter Additional Health Concerns Assessment Noted Time PHQ-9 Depression Total Score: 14 023 10:55 AM EDT documented as of this encounter Care Teams Glass Vial Filler Relationship Specialty Start Date End Date Sharon Lopez MD [address] [place] [address] PCP - General Internal Medicine 07/16/22 documented as of this encounter
== END 2024-05-06 15:34 | disposition home or self-care (01) ==
LOC: HO.ENCR 15:00
PROVIDERS: PCP Student in an Organized Health Care Education/Training Program; Visit Provider Registered Nurse Diabetes Educator
DX: E11.65 Type 2 diabetes mellitus with hyperglycemia (principal)

== ENCOUNTER → 2024-05-06 14:59 | Outpatient (BNVA) | payer MEDICAID, SELFPAY | PROVIDERS: PCP Student in an Organized Health Care Education/Training Program; Visit Provider Registered Nurse Diabetes Educator | DX: E11.65 Type 2 diabetes mellitus with hyperglycemia (principal) | CPT/HCPCS: 99211 ==

== ENCOUNTER 2024-11-11 13:53 | Outpatient (AMB) | payer MEDICAID, SELFPAY ==
--- NOTE | 2024-11-11 14:35 | MHC.AMDMED ---
Intake Intake Visit Reasons: 60 min Foam Rubber Molder Required: Yes Foam Rubber Molder Language: Macanese Accompanied by: Daughter Allergies No Known Allergies Allergy (Verified 04/26/24 14:56) HPI Comprehensive Diabetes Asmnt Most Recent Diabetes Results: Microalb/Creat Ratio, (<30) 7.6 ug/mg cr 10/25/22 Cholesterol, (<200) 194 mg/dL 08/27/23 HDL Cholesterol, (>40) 47 mg/dL 08/27/23 Triglycerides, (<150) 139 mg/dL 08/27/23 Creatinine, (0.5-1.4) 0.71 mg/dL 10/25/22 BUN, (9-16) 11 mg/dL 10/25/22 Sodium, (135-145) 138 mmol/L 10/25/22 Potassium, (3.3-5.1) 4.1 mmol/L 10/25/22 Chloride, (96-108) 103 mmol/L 10/25/22 Carbon Dioxide, (22-29) 27 mmol/L 10/25/22 Calcium, (8.4-10.2) 10.3 mg/dL H 10/25/22 AST, (5-31) 12 U/L 10/25/22 ALT, (0-31) 13 U/L 10/25/22 Total Protein, (6.5-8.0) 7.3 g/dL 10/25/22 Albumin, (3.5-5.0) 4.1 g/dL 10/25/22 [facility] Medical History Uncontrolled type 2 diabetes mellitus with hyperglycemia Surgical History History of section History of surgery History of removal of cyst Family History Mother Medical history unknown Father Cancer Social History Alcohol intake: never Patient Tobacco Use Status: Current someday Tobacco user Assessment & Plan Assessment & Plan (1) Uncontrolled type 2 diabetes mellitus with hyperglycemia: Code(s): E11.65 - Type 2 diabetes mellitus with hyperglycemia Plan: Personal Continuous Glucose Monitor: Patients CGM information reviewed, Patient had very limited CGM data because she reports she has not received An 3+ sensors in several weeks. She did receive 2 sensors from pharmacy today. Patient is also overdue for A1c, she missed appointment with endocrine PA 11/01/2024, reports she was not feeling well. Reviewed with patient information below: Blood glucose monitoring When/how often to test Target blood sugar ranges Introduction to Nutrition Importance of healthy diet in managing DM Diet is personalized to individual preference Review patient?s regular diet/food preferences Who prepares meals/does food shopping/ Dining out?/ Barriers? How diet effects glucose Eating 3 balanced meals a day with small, healthy snacks between meals Review food groups Carbohydrates: What is a carbohydrate/Which food/food groups are considered carbohydrates Effect of carbohydrates on blood glucose Portion sizes Reading food labels Basic carb counting (if applicable per nursing assessment) Plate method Meal planning Recommendations: Follow plate method, consistent carbs and read nutritional labels. Patient able to insert sensor independently at home without issue.? Portions of this note were created using voice recognition software, please excuse any words or phrases that may have been misinterpreted. Coding Level of Care Code Est Pt Level 1 (36273) Diagnoses Uncontrolled type 2 diabetes mellitus with hyperglycemia E11.65
--- OUTSIDE RECORDS SUMMARY | 2024-11-11 18:23 | XMS_ITS | Clinical Summary ---
Author Organization [employer] Address [address] [place] [address] 7t [place] [address] Care Team Providers Care Ring Packer Name Role Phone Sharon Lopez MD Primary Care Pro vider Allergies Active Allergy Reactions Criticality Noted Date Comments Dust Mite Extract 04/03/2022 Other reaction(s): dust/congestion Medications cetirizine (ZyrTEC) 10 MG tablet Take 1 tablet by mouth 1 (one) time each day. 021 Active metFORMIN (Glucophage) 1000 MG tablet Take 1 tablet by mouth every 12 (twelve) hours. 020 Active sucralfate (Carafate) 1 GM/10ML suspensionIndic ations:Gastroes ophageal reflux disease, unspecified whether esophagitis present As needed for GERD every 8 hours 98479 mL 023 Active Continuous Blood Gluc Sensor (FreeStyle An 2 Sensor) [facility] USE TO MONITOR INTERSTITIAL GLUCOSE CUATRO VECES AL KAYLEE AND CUANDO SEA NECESARIO 2 each 11 023 Active Mounjaro 2.5 MG/0.5ML solution pen-injector Inject 7.5 mg under the skin 1 (one) time per week. 023 Active aspirin 81 MG EC tablet Take 81 mg by mouth in the morning. Active dicyclomine (Bentyl) 20 MG tablet TAKE 1 TABLET BY MOUTH EVERY 8 HOURS 30 tablet 2 023 Active Diclofenac Sodium 1 % gel APPLY 2 GRAMS TO AFFECTED AREA(S) TOPICALLY EVERY MORNING 100 g 1 023 Active ketoconazole (NIZOral) 2 % shampooIndicati ons:Seborrheic dermatitis APPLY ONCE DAILY INITIALLY, THEN TWICE WEEKLY 120 mL 2 023 Active estradiol (Estrace) 0.1 MG/GM vaginal cream APPLY 1 GRAM VAGINALLY TWICE WEEKLY AT BEDTIME 023 Active traZODone (Desyrel) 100 MG tabletIndicatio ns:Prescribed by new psychiatrist Marilyn Todd Take 1-2 tablets by mouth at bedtime Active venlafaxine XR (Effexor XR) 75 MG 24 hr capsuleIndicati ons:Prescribed by new psychiatrist Marilyn Todd Take 1 capsule by mouth daily with 37.5 mg capsule (WBM=082.5 mg) for 2 weeks Active venlafaxine (Effexor) 37.5 MG tablet TOME RAMEZ TABLETA POR V A ORAL TODOS LOS D (WITH 75MG) 023 Active insulin lispro (HumaLOG) 100 UNIT/ML injectionIndica tions:Type 2 diabetes mellitus with hyperglycemia, with long-term current use of insulin ([facility]) INJECT 4UNITS POR SUBCUTANEA 3VECES AL KAYLEE ANTES DE LAS COMIDAS IF GLUCOSE >150-199 MG/DL, INCREASE 1 UNIT EVERY 50 MG/DL INCREASE IN GLUCOSE (MAX 36 UNITS/DAY, IF HIGHER THEN 400 MG/DL CALL MD) 15 mL 5 024 Active risperiDONE (RisperDAL) 0.25 MG tablet TOME RAMEZ TABLETA POR V A ORAL TODOS LOS D 024 Active insulin glargine (Lantus SoloStar) 100 UNIT/ML pen INJECT 52 UNITS UNDER THE SKIN IN THE MORNING. 15 mL 3 024 Active docusate sodium (Colace) 100 MG capsule TAKE 1 CAPSULE BY MOUTH TWICE DAILY NEEDED FOR CONSTIPATION 180 capsule 024 Active dapagliflozin (Farxiga) 10 MGIndications:T ype 2 diabetes mellitus with hyperglycemia, with long-term current use of insulin ([facility]) TAKE 1 TABLET BY MOUTH EVERY EVENING 30 tablet 3 025 Active cholecalciferol (D3 Super Strength) 50 MCG (2000 UT) capsule TAKE 1 CAPSULE BY MOUTH EVERY MORNING 90 capsule 025 Active pantoprazole (ProtoNix) 40 MG EC tablet Take 1 tablet (40 mg) by mouth before breakfast. 90 tablet 025 Active Myrbetriq 25 MG 24 hr tablet TAKE 1 TABLET BY MOUTH EVERY MORNING 90 tablet 025 Active lisinopril 10 MG tablet TAKE 1 TABLET BY MOUTH EVERY MORNING 90 tablet 025 Active atorvastatin (Lipitor) 80 MG tablet TAKE 1 TABLET BY MOUTH EVERY MORNING 90 tablet 025 Active famotidine (Pepcid) 40 MG tablet TAKE 1 TABLET BY MOUTH AT BEDTIME 90 tablet 1 025 Active famotidine (Pepcid) 40 MG tablet TAKE 1 TABLET BY MOUTH AT BEDTIME 90 tablet 1 024 2024 Discontinued(R eorder (will not trigger notification to Pharmacy)) Active Problems Problem Noted Date Diagnosed Date [...] Encounters Date Type Department Care Team Description 10/15/2024 Refill [facility] [address] [place] [address] Sharon Lopez MD 10/04/2024 Outside Procedure [facility] [address] [place] [address] Mary Kate Kasper, OD Presbyopia (Primary Dx) 09/29/2024 9:45 AM EDT Office Visit [facility] [address] [place] [address] Mary Kate Kasper, OD Regular astigmatism of both eyes (Primary Dx) 09/28/2024 Refill [facility] [address] [place] [address] Sharon Lopez MD 09/16/2024 Telephone [facility] [address] [place] [phone] Sharon Lopez MD chart prep 09/13/2024 Refill [facility] [address] [place] [phone] Sharon Lopez MD 09/10/2024 Patient Outreach [facility] [address] [place] [phone] Sharon Lopez MD Pre-visit Planning (SDOH Screening negative and Tobacco screening negative) 08/30/2024 Telephone [facility] [address] [place] [phone] Mariya Licona CNM CHART PREP 08/25/[address] [address] Sharon Lopez MD from Last 3 Months Immunizations Immunization Administration Dates Next Due Hep B, adult [...] housing situation today? I have price cheema 09/10/[address] you li ve. Do you have problems with any of the following? None of the above 09/10/2024 Food Insecurity Answer Date Recorded Within the past 12 months, y ou worried that your food would run out before you got money to buy more: Never True 09/10/2024 Within the past 12 months,th e food you bought just didn't last and you didn't have enough money to get more: Never True Transportation Answer Date Recorded In the past 12 months, has l ack of transportation kept you from medical appts, meetings, work or from getting things needed for daily living? No 09/10/2024 Utilities Answer Date Recorded In the past 12 months, has t he electric, gas, oil or water company threatened to shut off services in your home? No 09/10/2024 Depression Answer Date Recorded Patient Health Questionnaire-2 [...] 86 09/02/2023 2:32 PM EDT Temperature 37.1 C (98.8 F) 09/02/2023 2:32 PM EDT Respiratory Rate 20 09/02/2023 2:32 PM EDT Oxygen Saturation 98% 09/02/2023 2:32 PM EDT Inhaled Oxygen Concentration - - Weight 87.3 kg (192 lb 6.4 oz) 09/02/2023 2:32 P M EDT Height 157.5 cm (5' 2 ) 09/02/2023 2:32 PM EDT Body Mass Index 35.19 09/02/2023 2:32 PM EDT Plan of Treatment Health Maintenance Due Date Last Done Comments CT Colonography 1965 Colonoscopy 1965 Colorectal Cancer Screening 1965 FIT DNA/Cologuard 1963 FIT 1963 FOBT 1965 Sigmoidoscopy 1965 Disability Screening 1963 Diabetes: Foot Exam 1973 Alcohol/Substance Use Screening 1975 RSV Patients and Patients Aged 60 years or older (1 - Risk 60-74 years 1-dose series) 2023 Depression Monitoring 04/25/2023 10/25/2022, 023 Zoster Vaccines (2 of 2) 06/10/2023 04/15/2023 Diabetes: Urine Protein Screening 10/26/2023 10/25/2022, 12/14/2020, 10/05/2020 Diabetes: Hemoglobin A1C 07/27/2024 025, 07/24/2023, 02/11/2023, Additional history exists Lipid Panel 08/26/2024 08/27/2023, 0909/2022, 12/14/2020, Additional history exists COVID-19 Vaccine ( season) 2024 Influenza Vaccine (#1) 2024 10/25/2022 Mammogram 11/08/2024 11/08/2022, 06/09/2020 Tobacco Screening 07/22/2025 07/22/2024 SDOH Screening 09/10/2025 09/10/2024 Eye Exam 07/22/2026 07/22/2024, 06/2024, 07/22/2024, Additional history exists Cervical Cancer Screening 09/01/2028 [...] patient's age to complete this topic Meningococcal B Vaccine Aged Out No l onger eligible based on patient's age to complete [...] PharmD Hemoglobin A1c < 7 Result Component 8(04/26/2024 12:00 AM EDT) No Jorge Terrell PharmD Procedures Procedure Name Priority Date/Time Associated Diagnosis Comments HM HEMOGLOBIN A1C Routine 04/26/2024 THINPREP IMAGING PAP AND HPV MRNA E6/E7 Routine 09/02/2023 2:56 PM EDT LIPID PANEL, STANDARD Routine 08/27/2023 11:42 AM EDT BI MAMMOGRAM SCREENING TOMOSYNTHESIS BILATERAL Routine 11/08/2022 1:00 PM EDT ALBUMIN, RANDOM URINE W/CREATININE Routine 10/25/2022 12:44 PM EDT Health care maintenance HEPATITIS C AB W/REFL TO HCV RNA, QN, PCR Routine 10/25/2022 12:29 PM EDT Health care maintenance HIV ANTIBODY/ANTIGEN ([facility]) Routine 10/25/2022 12:29 PM EDT from Last 3 Months or Most Recently Relevant to Health Maintenance Results * (ABNORMAL) HM Hemoglobin A1c (04/26/2024) Hemoglobin A1C 8.0(A) 4.0 - 5.7 % [facility] us Historical Provider MD HEALTH MAINTENANCE Final Result [facility] [address] [place] [address] [phone] * ThinPrep Imaging Pap and HPV mRNA E6/E7 (09/02/2023 2:56 PM EDT) HPV nRNA E6/E7 Not Detected Not Detected [facility] Comment:Methodology: Transcr iption-Mediated AmplificationThis assay detects E6/E7 viral messenger RNA (mRNA) from 14high-risk HPV types (16,18,31,33,35,39,45,51,52,56,58,59,66,68).Cervical sources are required for HPV testing.If a vaginal source from a patient who has had atotal hysterectomy with removal of cervix wassubmitted, please contact the testing laboratoryfor alternative testing options.For additional information, please refer [email or web address]/faq/QKO425b5(This link if provided for information/educational purposes only.)THIS TEST WAS PERFORMED AT:[facility] [place] [phone] DOZIER MD SOURCE: SEE NOTE [facility] Comment:None given Report Status: TNP [facility] Clinical Information: SEE NOTE [facility] Comment:None given LMP: SEE NOTE [facility] Comment:NONE GIVEN Prev. PAP: SEE NOTE [facility] Comment:NONE GIVEN Prev. BX: SEE NOTE [facility] Comment:NONE GIVEN Statement Of Adequacy: SEE NOTE [facility] Comment:Satisfactory for ella luation.Endocervical/transformation zone componentpresent. General Categorization: [facility] Interpretation/Result: SEE NOTE [facility] Comment:Cytology Results: Ne gative for intraepitheliallesion or malignancy. Cytology Comment SEE NOTE [facility] Comment:This Pap test has be en evaluated with computerassisted technology. Custodial Engineer: SEE NOTE [facility] Comment:RXB, CT(ASCP)CT scre ening location: [place] [address] Review Custodial Engineer: [facility] Pathologist [facility] PAP [facility]fection [facility] See Note SEE NOTE [facility] Comment:EXPLANATORY NOTE:The Pap is a [...] 09/02/2023 4:50 PM EDT Narrative [facility] - 09/10/2023 2:42 PM EDT SEE SCANNED RESULTS IN [facility] us Mariya MORRIS LAB PATHOLOGY ORDERABLES Final Result [facility] [address] [place] [address] [phone] * (ABNORMAL) Lipid Panel, Standard (08/27/2023 11:42 AM EDT) Triglycerides 139 <150 mg/dL [facility] Comment:Desirable Triglyceri de: less than 150 mg/dLBorderline High Triglyceride 150-199 mg/dLHigh Triglyceride: 200-499 mg/dLVery High Triglyceride: greater than or equal to 5OO mg/dL Cholesterol 194 <200 mg/dL [facility] Comment:Desirable Cholestero l: less than 200 mg/dLBorderline High Cholesterol: 200-239 mg/dLHigh Cholesterol: greater than 239 mg/dL LDL Cholesterol Calculated 120(H) <100 mg/dL [facility] Comment:Desirable LDL: less than 100 mg/dLNear Optimal/Above Optimal LDL: 110- 129 mg/dLBorderline High LDL: 130-159 mg/dLHigh LDL: 160-189 mg/dLVery High LDL: greater than or equal to 190 mg/dL HDL Cholesterol 47 >40 mg/dL [facility] Comment:Desirable HDL: great er than 40 mg/dL Note: This HDL assay may give artificially low results in patients with liver disease. 08/27/2023 11:4 2 AM EDT 08/27/2023 11:42 AM EDT us Generic External Data Provider LAB BLOOD ORDERAB LES Final Result Performing Organization Address City/State/[facility] Co de Phone Number [facility] [address] [place] [phone] * BI Mammogram Screening Tomosynthesis Bilateral (11/08/2022 1:00 PM EDT) Anatomical Region Laterality Modality Breast Bilateral Mammography 11/08/2022 1:00 PM EDT Narrative 11/17/2022 10:37 PM EDT [facility] [address] [place] [address] Mammography Report Signed Patient: Aminata Mcmahan MR#: [id number] 90 : 1965 Acct:[id number] Age/Sex: 57 / F ADM Date: 11/08/22 Loc: HO.MAMMO Attending Dr: Sharon Peña MD Ordering Physician: Sharon Lopez MD Re sults: 1Negative Date of Service: 11/08/22 Follow Up: 1 Year From Orig inal Mammogram Procedure(s): MM tomosynthesis screening BI Accession Number(s): [id number] cc: Sharon Lopez MD EXAMINATION: MM SCREENING [...] in OV> 11/17/22 2233 DD/ 1300 TD/TT: Internal Combustion Engineer: Procedure Note Donotuseinterpreter, Image - 11/17/2022 [facility] [address] [place] [address] Mammography Report Signed Patient: Aminata McmahanMR#: [id number] 90 : 1965Acct:[id number] Age/Sex: 57 / FADM Date: 11/08/22 Loc: HO.MAMMO Attending Dr: Sharon Peña MD Ordering Physician: Sharon Lopez sults: 1Negative Date of Service: 11/08/22Follow Up: 1 Year From Orig inal Mammogram Procedure(s): MM tomosynthesis screening BI Accession Number(s): [id number] cc: Sharon Lopez MD EXAMINATION: MM SCREENING [...] in OV> 11/17/22 2233 DD/ 1300 TD/TT: Internal Combustion Engineer: Sharon Peña MD IMG BI PROCEDURES Final Result * Albumin, Random Urine W/Creatinine (10/25/2022 12:44 PM EDT) Creatinine, Urine 117.70 mg/dL [facility] Microalbumin Urine 9.0 mg/L [facility] Microalbum Creatinine Ratio Ur 7.6 <30 ug/mg cr [facility] Comment:Albumin/Creatinine R atio Reference Ranges: Normal: < 30 ug/mg creatinine Microalbuminuria: 30 - 300 ug/mg creatinineClinical Albuminuria: > 300 ug/mg creatinine Urine 10/25/2022 12:4 4 PM EDT 10/25/2022 1:04 PM EDT Sharon Peña MD LAB URINE ORDERAB LES Final Result [facility] [address] [place] [phone] * HIV Ab/Ag ([facility]) (10/25/2022 12:29 PM EDT) HIV AB/AG Nonreactive Nonreactive [facility] Comment:HIV-1 p24 Ag and/or HIV-1/HIV-2 Ab not detected.A test result that is nonreactive does not exclude thepossibility of exposure to or infection with HIV-1 and/orHIV-2. Nonreactive results in this assay for individualswith prior exposure to HIV-1 and/or HIV-2 may be due toantigen and antibody levels that are below the limit ofdetection of this assay.The [employer] Alinity HIV Ag/Ab Combo assay result andsupplemental assay results should be interpreted inconjunction with the patient's clinical presentation,history and other laboratory results. If the results areinconsistent with clinical evidence, additional testing issuggested to confirm the result. 10/25/2022 12:2 9 PM EDT 10/25/2022 1:02 PM EDT us Sharon ePña MD LAB BLOOD ORDERAB LES Final Result Performing Organization Address [facility]/ZIP Co de Phone Number [facility] [address] [place] [phone] * (ABNORMAL) Hepatitis C Antibody with Reflex to HCV, RNA, Quantitative, Real- Time PCR (10/25/2022 12:29 PM EDT) Hepatitis C Antibody Reactive( A) Nonreactive [facility] Comment:Presumptive evidence of antibodies to HCV. Blood Venous blood specimen / Unknown 10/25/2022 12:29 PM EDT 10/25/2022 1:02 PM EDT us Sharon Peña MD LAB BLOOD ORDERAB LES Final Result Performing Organization Address City/[facility]/ZIP Co de Phone Number [facility] [address] [place] [phone] from Last 3 Months or Most Recently Relevant to Health Maintenance [place] [address] [address] C3 Care Teams Ring Packer Relationship Specialty Start Date End Date Sharon Lopez MD [address] [place] [phone] PCP - General Internal Medicine 07/16/22
--- OUTSIDE RECORDS SUMMARY | 2024-11-11 18:23 | XMS_ITS | Encounter Summary ---
Author Organization [employer] Address [address] [place] [address] [place] [address] Care Team Providers Care Crop Duster Helper Name Role Phone Sharon Lopez MD Primary Care Pro vider Reason for Visit * Reason Onset Date Comments Triage 07/16/2022 Encounter Details Date Type Department Care Team ([facility] st Contact Info) Description 07/16/2022 Telephone [facility] [address] [place], [place] [phone] Sharon Lopez MD [address] [place] [address] Triage Social History Tobacco Use Types Packs/Day [...] No answer LVM to return call to [facility] triage line. Protocol Used: No Contact or Duplicate Contact Call (Adult) Protocol-Based Disposition: No Contact Call Positive Triage Question: * Message left on identified voicemail * All higher-acuity triage questions were negative * Telephone Encounter - Izabel Mosley RN - 07/16/2022 3:10 PM EDT Call returned to patient for triage. No answer LVM to return call to [facility] triage line. Left [facility] opearting hours as well. Protocol Used: [...] The caller accepted this outcome Patient speaks vincentian. documented in this encounter Plan of Treatment Not on file documented as of this encounter Visit Diagnoses Not on filedocumented in this encounter Additional Health Concerns Assessment Noted Time PHQ-9 Depression Total Score: 2 06/01/19 23 9:31 AM EDT documented as of this encounter Care Teams Crop Duster Helper Relationship Specialty Start Date End Date Sharon Lopez MD [address] [place] [phone] PCP - General Internal Medicine 07/16/22 documented as of this encounter
--- OUTSIDE RECORDS SUMMARY | 2024-11-11 18:23 | XMS_ITS | Encounter Summary ---
Author Organization [employer] Address [address] [place] [address] 7t [place] [address] Care Team Providers Care Animal Care Giver Name Role Phone Linda Damon MD Primary Care Provider [phone] Sharon Lopez MD Primary Care Pro vider Reason for Visit * Reason Comments Med Refill Encounter Details Date Type Department Care Team ([facility] st Contact Info) Description 06/25/2022 Refill [facility] MED & PEDS [address] [place], [place] [phone] Linda Damon MD 505 [place] [address] Gastroesophageal reflux disease, unspecified whether esophagitis present [...] as of this encounter Plan of Treatment Not on file documented as of this encounter Visit Diagnoses Diagnosis Gastroesophageal reflux disease, unspecified whether esophagitis present documented in this encounter Additional Health Concerns Assessment Noted Time PHQ-9 Depression Total Score: 2 06/01/19 23 9:31 AM EDT documented as of this encounter Care Teams Animal Care Giver Relationship Specialty Start Date End Date Linda Damon MD [address] [place] [address] PCP - General Family Medicine 12/14/20 07/15/22 Sharon Lopez MD 230 [place] [address] PCP - General Internal Medicine 07/16/22 documented as of this encounter
--- OUTSIDE RECORDS SUMMARY | 2024-11-11 18:23 | XMS_ITS | Encounter Summary ---
Author Organization [employer] Address [address] [place] [address] 7 [place] [address] Care Team Providers Care Inside Meter Tester Name Role Phone Sharon Lopez MD Primary Care Pro vider Encounter Details Date Type Department Care Team ([facility] st Contact Info) Description 08/25/2024 Telephone [facility] MEDICINE [address] [place], [place] [phone] Sharon Lopez MD 230 [place], [place] [phone] Social History Tobacco Use Types Packs/Day Years [...] on file documented as of this encounter Goals Goal Patient Goal Type Associated Problems Recent Progress Patient-Stated? Author Blood Pressure < 140/90 Blood Pressure 120/66(2023 2:32 PM EDT) No Jorge Terrell PharmD Hemoglobin A1c < 7 Result Component 8(04/26/2024 12:00 AM EDT) No Jorge Terrell PharmD documented as of this encounter Visit Diagnoses Not on filedocumented in this encounter Additional Health Concerns Assessment Noted Time PHQ-9 Depression Total Score: 14 023 10:55 AM EDT documented as of this encounter Care Teams Inside Meter Tester Relationship Specialty Start Date End Date Sharon Lopez MD [address] [place] [address] PCP - General Internal Medicine 07/16/22 documented as of this encounter
--- OUTSIDE RECORDS SUMMARY | 2024-11-11 18:23 | XMS_ITS | Encounter Summary ---
Author Organization [employer] Address [address] [place] [address] Care Team Providers Care Aircraft Instrument Mechanic Name Role Phone Sharon Lopez MD Primary Care Pro vider Reason for Visit * Reason Onset Date Comments Med Refill 11/17/2023 Encounter Details Date Type Department Care Team ([facility] st Contact Info) Description 11/17/2023 Telephone [facility] MEDICINE 230 [place], [place] [phone] Shaorn Lopez MD 230 [place], [place] [phone] Med Refill Social History Tobacco Use Types [...] MG/0.5ML solution pen-injector To be sent to: [facility] - [place], [place] - 230 [facility] documented in this encounter Plan of Treatment Not on file documented as of this encounter Goals Goal Patient Goal Type Associated Problems Recent Progress Patient-Stated? Author Blood Pressure < 140/90 Blood Pressure 120/66(2023 2:32 PM EDT) No Jorge Terrell, PharmKelly Hemoglobin A1c < 7 Result Component 8(04/26/2024 12:00 AM EDT) No TerrellJorge PharmD documented as of this encounter Visit Diagnoses Not on filedocumented in this encounter Additional Health Concerns Assessment Noted Time PHQ-9 Depression Total Score: 14 023 10:55 AM EDT documented as of this encounter Care Teams Aircraft Instrument Mechanic Relationship Specialty Start Date End Date Sharon Lopez MD [address] [place] [address] PCP - General Internal Medicine 07/16/22 documented as of this encounter
--- OUTSIDE RECORDS SUMMARY | 2024-11-11 18:23 | XMS_ITS | Encounter Summary ---
Author Organization [employer] Address [address] [place] [address] [place] [address] Care Team Providers Care Public Relations Counselor Name Role Phone Linda Damon MD Primary Care Provider Sharon Lopez MD Primary Care Pro vider Reason for Visit * Reason Comments Med Change Request Encounter Details Date Type Department Care Team ([facility] st Contact Info) Description 04/03/2022 Refill [facility] MED & PEDS 505 [place], [place] [phone] Farida Bingham MD 505 [place] [address] Bartholin gland cyst Social History Tobacco Use [...] gland documented in this encounter Care Teams Public Relations Counselor Relationship Specialty Start Date End Date Linda Damon MD 230 [place] [address] PCP - General Family Medicine 12/14/20 07/15/22 Sharon Lopez MD 230 [place] [address] PCP - General Internal Medicine 07/16/22 documented as of this encounter
--- OUTSIDE RECORDS SUMMARY | 2024-11-11 18:24 | XMS_ITS | Encounter Summary ---
Author Organization [email or web address] Address [address] [place] [address] Care Team Providers Care Senior Telecommunications Technician Name Role Phone Sharon Lopez MD Primary Care Pro vider Reason for Visit * Reason Onset Date Comments Appointment Request 08/26/2022 Encounter Details Date Type Department Care Team ([facility] st Contact Info) Description 08/26/2022 Telephone [facility] MEDICINE 230 [place], [place] [phone] Sharon Lopez MD 230 [place] [address] Appointment Request Social History Tobacco Use Types [...] schedule TP appointment. States she missed 08/23. Mail Sorting Supervisor did not see any availability for August. Please contact pt daughter at [phone] documented in this encounter Plan of Treatment Not on file documented as of this encounter Visit Diagnoses Not on filedocumented in this encounter Additional Health Concerns Assessment Noted Time PHQ-9 Depression Total Score: 2 06/01/19 9:31 AM EDT documented as of this encounter Care Teams Senior Telecommunications Technician Relationship Specialty Start Date End Date Sharon Lopez MD [address] [place] [address] PCP - General Internal Medicine 07/16/22 documented as of this encounter
--- OUTSIDE RECORDS SUMMARY | 2024-11-11 18:24 | XMS_ITS | Encounter Summary ---
Author Organization [employer] Address [address] [place] [address] [place] [address] Care Team Providers Care Joint Runner Name Role Phone Sharon Lopez MD Primary Care Pro vider Reason for Visit * Reason Comments Med Refill Encounter Details Date Type Department Care Team ([facility] st Contact Info) Description 06/26/2023 Refill [facility] MEDICINE 230 [place], [place] [phone] Sharon Lopez MD 230 [place], [place] [phone] Type 2 diabetes mellitus with hyperglycemia, with long-term current use of insulin ([facility]) Social History Tobacco Use Types Packs/Day Years [...] with long-term current use of insulin ([facility]) documented in this encounter Additional Health Concerns Assessment Noted Time PHQ-9 Depression Total Score: 14 023 10:55 AM EDT documented as of this encounter Care Teams Joint Runner Relationship Specialty Start Date End Date Sharon Lopez MD [address] [place] [address] PCP - General Internal Medicine 07/16/22 documented as of this encounter
== END 2024-11-11 14:38 | disposition home or self-care (01) ==
LOC: HO.ENCR 13:54
PROVIDERS: PCP Student in an Organized Health Care Education/Training Program; Visit Provider Registered Nurse Diabetes Educator
DX: E11.65 Type 2 diabetes mellitus with hyperglycemia (principal)

== ENCOUNTER → 2024-11-11 13:53 | Outpatient (BNVA) | payer MEDICAID, SELFPAY | PROVIDERS: PCP Student in an Organized Health Care Education/Training Program; Visit Provider Registered Nurse Diabetes Educator | DX: E11.65 Type 2 diabetes mellitus with hyperglycemia (principal) | CPT/HCPCS: 99211 ==

== ENCOUNTER 2024-11-26 13:13 | Outpatient (AMB) | payer MEDICAID, SELFPAY ==
[2024-11-26 13:27] VITALS: BP 130/72; PULSE 80; O2SAT 96; BMI 34.5
--- NOTE | 2024-11-26 13:27 | MHC.OFFVIS ---
Vital Signs 11/26/24 13:27 Height 5 ft 2 in Weight 188 lb 7.924 oz BMI 34.5 BP 130/72 Blood Pressure Location Lt brachial Position Sitting Pulse 80 Pulse Source Pulse Oximeter Pulse Oximetry (%) 96 Oxygen Delivery Method Room Air Intake Visit Reasons: T2DM Intake Note: Patient present today for Type 2 Diabetes Mellitus Last Diabetic eye exam:?Jasmyn in August at [facility] Last Podiatry Visit:?Does not have a costuming supervisor Random Glucose:?240 mg/dl HgA1C: Retail Loss Prevention Specialist Required: Yes Retail Loss Prevention Specialist Services: Retail Loss Prevention Specialist Present Retail Loss Prevention Specialist Name: [id number] Sudha Information Interpreted: non-clinical & clinical Accompanied by: Daughter Allergies No Known Allergies Allergy (Verified 11/26/24 13:35) Medication List - Last Reconciled 11/26/24 by Melanie Boo PA-C atorvastatin 80 mg PO DAILY blood-glucose sensor (LarkyStyle An 3 Plus Sensor device) Use daily As directed to monitor glucose blood-glucose,clinical specialist,cont (FreeStyle An 3 [place]) As directed clotrimazole 1% 1 appful vaginal BEDTIME PRN estradiol 0.01%(0.1mg/gram) grams vaginal ezetimibe (Zetia) 10 mg PO DAILY fluconazole 150 mg PO Q3D glucose (Dex4 Glucose) 16 grams (4 x 4 gram) PO Q15M PRN ibuprofen 800 mg PO Q8H PRN insulin glargine U-300 conc (Toujeo Max U-300 SoloStar) 50 units (0.1667 mL) subcut DAILY insulin lispro 10 units three times a day with meals 4 weeks ketoconazole 2% topical 2XW metformin 1,000 mg PO BID mirabegron ER (Myrbetriq) 25 mg PO DAILY quetiapine 100 mg PO BEDTIME quetiapine 25 mg PO BID quetiapine 200 mg PO BEDTIME sertraline 150 mg PO DAILY sucralfate (Carafate) 10 mL PO Q6H tirzepatide (Mounjaro) 15 mg (0.5 mL) subcut QWEEK tolterodine ER 4 mg PO QAM trazodone 100 mg PO BID venlafaxine 37.5 mg PO BID venlafaxine ER 75 mg PO DAILY venlafaxine ER 37.5 mg PO DAILY HPI HPI T2DM: Details: Patient is a 59-year-old female with a significant past medical history of anxiety, depression, overactive bladder, hyperlipidemia, and diabetes presenting today for a diabetic follow-up. Last seen in the office over 6 months ago. Phone preschool disability teacher: Flores [phone]. Recently sick with URI. She did call her pcp. Her sx started Friday and she is feeling a little better. No fever or chills. She has cough and sinus congestion. No sob. She has been wheezing. She has albuterol at home and has not felt like she's needed it. Covid and flu negative. Her A1c today is 7.8. She is supposed to be on Mounjaro 12.5 mg weekly, metformin 1000 mg twice a day, lispro 22 u with meals, Toujeo 60 units nightly. -No issues with mounjaro 12.5 mg weekly -She is only taking metformin once a day, did not realize it was twice a day dosing -only using 42 toujeo -only on lispro 10 units with meals CGM- active 97 %, average glucose 194 glucose variability 18 %. Very high 7%, high 52%, in range 41%, 0% hypoglycemic She is not on an MALLORY-inhibitor. Cholesterol is controlled with atorvastatin 80 mg and Zetia 10 mg. she states that if she were to get a low blood sugar she would drink soda or have candy. Low blood sugars are very rare. CV: Blood pressure today in the office is 130/72. She is currently on atorvastatin 80 mg and Zetia 10 mg for cholesterol management overdue labs. [facility] Medical History Uncontrolled type 2 diabetes mellitus with hyperglycemia Surgical History History of section History of surgery History of removal of cyst Family History Mother Medical history unknown Father Cancer Social History Alcohol intake: never Patient Tobacco Use Status: Current someday Tobacco user Physical Exam Vital Signs: Last Vital Signs Pulse 80 11/26/24 13:27 BP 130/72 11/26/24 13:27 Pulse Ox 96 11/26/24 13:27 Oxygen Delivery Method Room Air 11/26/24 13:27 BMI result Body Mass Index 34.5 Const Orientation/consciousness: patient oriented x3 HEENT Ears: hearing grossly normal bilaterally Neck Thyroid: Thyroid normal Lymphatic: no lymphadenopathy noted Resp Auscultation: wheezes expiratory wheezes Cardio Rate: regular rate Rhythm: regular rhythm Heart sounds: S1 normal heart sound present and S2 normal heart sound present Skin General skin exam: no rashes or lesions noted Neuro General: patient oriented x3, gait normal and no focal motor deficits Results Reviewed Results Reviewed: Laboratory Last Values Glucose (Clinic) 240 mg/dL (60-115) H 11/26/24 13:42 Assessment & Plan Assessment & Plan (1) Uncontrolled type 2 diabetes mellitus with hyperglycemia: Code(s): E11.65 - Type 2 diabetes mellitus with hyperglycemia Category: Medical Plan: increase metformin 1000 mg to twice a day increase mounjaro to 15 mg weekly increase toujeo to 50 units continue lispro to 10 units with meals ordered testing supplies sensors ordered discussed rules of 15s (2) Hyperlipidemia: Code(s): E78.5 - Hyperlipidemia, unspecified Category: Medical Plan: Continue atorvastatin and Zetia. Lipids and LFTs ordered. Plan advised to call pcp or go to if not getting better with viral sx Orders: Orders AMB Hemoglobin A1c Today E11.65 - Type 2 diabetes mellitus with hyperglycemia Medications: New tirzepatide (Mounjaro) 15 mg (0.5 mL) subcut QWEEK 2 mL 5RF blood-glucose meter (Accu-Chek Guide Glucose Meter) Use daily As directed to monitor blood sugars 1 ea 0RF blood sugar diagnostic (Accu-Chek Guide test strips) use daily As directed to monitor blood sugars 100 ea 3RF E11.21 - Type 2 diabetes mellitus with diabetic nephropathy lancets (Accu-Chek Softclix Lancets) use once daily As directed to monitor blood sugars 100 ea 2RF metformin 1,000 mg PO BID 180 tabs 2RF blood-glucose sensor (FreeStyle An 3 Plus Sensor device) Use daily As directed to monitor glucose 2 ea 5RF E08.29 - Diabetes mellitus due to underlying condition with other diabetic kidney complication, R80.9 - Proteinuria, unspecified, Z79.4 - vermin exterminator (current) use of insulin Changed From insulin lispro 25 units three times a day with meals 4 weeks 45 mL 4RF To insulin lispro 10 units three times a day with meals 45 mL 4RF 4 weeks From insulin glargine U-300 conc (Toujeo Max U-300 SoloStar) 60 units (0.2 mL) subcut DAILY 6 mL 3RF To insulin glargine U-300 conc (Toujeo Max U-300 SoloStar) 50 units (0.1667 mL) subcut DAILY 6 mL 3RF Discontinued tirzepatide (Mounjaro) Discontinued Reason: Doctor's Order 12.5 mg (0.5 mL) subcut QWEEK 2 mL 4RF blood-glucose sensor (FreeStyle An 3 Sensor device) Discontinued Reason: Doctor's Order Apply every 14 days As directed 2 ea 11RF E11.9 - Type 2 diabetes mellitus without complications, Z79.4 - detention (current) use of insulin Patient Instructions: increase metformin 1000 mg to twice a day increase mounjaro to 15 mg weekly increase toujeo to 50 units continue lispro to 10 units with meals ordered testing supplies sensors ordered Coding Level of Care Code Est Pt Level 4 (02120) Complex EM visit Add On G2211 Diagnoses Uncontrolled type 2 diabetes mellitus with hyperglycemia E11.65 Hyperlipidemia E78.5
[2024-11-26 13:46] LABS: Glucose, Whole Blood 240 mg/dL (60-115)
== END 2024-11-26 14:04 | disposition home or self-care (01) ==
LOC: HO.ENCR 13:13
PROVIDERS: PCP Student in an Organized Health Care Education/Training Program; Visit Provider Physician Assistant
DX: E11.65 Type 2 diabetes mellitus with hyperglycemia (principal); Z79.4 Long term (current) use of insulin; E78.5 Hyperlipidemia, unspecified

== ENCOUNTER → 2024-11-26 13:13 | Outpatient (BNVA) | payer MEDICAID, SELFPAY | PROVIDERS: PCP Student in an Organized Health Care Education/Training Program; Visit Provider Physician Assistant | DX: E11.65 Type 2 diabetes mellitus with hyperglycemia (principal); E11.21 Type 2 diabetes mellitus with diabetic nephropathy; E11.29 Type 2 diabetes mellitus with other diabetic kidney complication; E78.5 Hyperlipidemia, unspecified; R80.9 Proteinuria, unspecified; Z79.84 Long term (current) use of oral hypoglycemic drugs; Z79.899 Other long term (current) drug therapy | CPT/HCPCS: 82947; 83036; 99212 ==

== ENCOUNTER 2025-01-24 13:38 | Outpatient (AMB) | payer MEDICAID, SELFPAY ==
--- NOTE | 2025-01-24 14:11 | A.OFFVIS_ITS ---
Intake Intake Visit Reasons: 60 min Print Production Manager Required: Yes Print Production Manager Language: Global Marketing Operations Manager Name: Evelia Accompanied by: Daughter Allergies No Known Allergies Allergy (Verified 11/26/24 13:35) HPI Comprehensive Diabetes Asmnt Most Recent Diabetes Results: 2 Microalb/Creat Ratio, (<30) 7.6 ug/mg cr 10/25/22 Cholesterol, (<200) 194 mg/dL 08/27/23 HDL Cholesterol, (>40) 47 mg/dL 08/27/23 Triglycerides, (<150) 139 mg/dL 08/27/23 Creatinine, (0.5-1.4) 0.71 mg/dL 10/25/22 BUN, (9-16) 11 mg/dL 10/25/22 Sodium, (135-145) 138 mmol/L 10/25/22 Potassium, (3.3-5.1) 4.1 mmol/L 10/25/22 Chloride, (96-108) 103 mmol/L 10/25/22 Carbon Dioxide, (22-29) 27 mmol/L 10/25/22 Calcium, (8.4-10.2) 10.3 mg/dL H 10/25/22 AST, (5-31) 12 U/L 10/25/22 ALT, (0-31) 13 U/L 10/25/22 Total Protein, (6.5-8.0) 7.3 g/dL 10/25/22 Albumin, (3.5-5.0) 4.1 g/dL 10/25/22 PFSH Medical History Uncontrolled type 2 diabetes mellitus with hyperglycemia Surgical History History of section History of surgery History of removal of cyst Family History Mother Medical history unknown Father Cancer Social History Alcohol intake: never Patient Tobacco Use Status: Current someday Tobacco user Assessment & Plan Assessment & Plan (1) Uncontrolled type 2 diabetes mellitus with hyperglycemia: Code(s): E11.65 - Type 2 diabetes mellitus with hyperglycemia Plan: Personal Continuous Glucose Monitor: Patients CGM information reviewed, Pt uses [employer] 3+ with reader Patient was seen prior provider on 11/26/2024, at that visit patient's A1c was 7.8%. Patient was instructed to increase lispro to 25 units before each meal, on patient reports she is still taking lispro 10 units after meals. Reviewed with patient insulin action of lispro instructed patient to increase pre meal dose to 25 units. Patient also had Mounjaro increase to 15 mg weekly, she has not started we will start within 2 weeks Reviewed with patient if after increasing medications she begins to experience hypoglycemia to treat with rule of 15s Hypoglycemia or blood glucose under 70 mg/dL use the rule of 15's: If you have your blood glucose meter test your blood glucose, if you do not have your meter still follow below instruction: Keep quick-sugar foods with you at all times.? Take 15 grams of fast acting carbohydrates. Examples are 4 ounces of fruit juice or regular soda pop, 8 ounces fat-free milk, 1 tablespoon of table sugar, honey or corn syrup, jam, one miniature box of raisins, 7-8 gumdrops or Life Savers candy, 4 glucose tablets, and glucose gel.? Retest blood glucose in 15 minutes, if blood glucose is still under 80 mg/dL,repeat rule of 15's. If blood glucose is under 50, take 30 grams of fast acting carbohydrates If you are having hypoglycemia, or insulin reaction, more that a few times a week, call MD or diabetes or certified adaptive physical educator patient's daughter stated at today's visit she will monitor patient more carefully at home to be sure she is taking insulin as prescribed Patient reports she uses glucose tabs to treat hypoglycemia, request for glucose tabs and updated lispro prescription sent to endocrine PA patient will follow-up with certified adaptive physical educator in 3 months Patient able to insert sensor independently at home without issue.? Portions of this note were created using voice recognition software, please excuse any words or phrases that may have been misinterpreted. Coding Level of Care Code Est Pt Level 1 (56781) Diagnoses Uncontrolled type 2 diabetes mellitus with hyperglycemia E11.65
--- OUTSIDE RECORDS SUMMARY | 2025-01-24 22:25 | XMS_ITS | Encounter Summary ---
Author Organization [employer] Address [address] [place] [address] 7 [place] [address] Care Team Providers Care Instrument Repairer Steam Plant Name Role Phone Linda Damon MD Primary Care Provider [phone] Sharon Lopez MD Primary Care Pro vider Reason for Visit * Reason Comments Med Change Request Encounter Details Date Type Department Care Team ([facility] [place] [facility] Contact Info) Description 04/03/2022 Refill [facility] MED & PEDS [address] [place] [address] Farida Bingham MD 505 [place] [address] Bartholin gland cyst Social History Tobacco Use [...] Upcoming Encounters Date Type Department Care Team ([facility] Contact Info) Description 04/06/2025 10:45 AM EST Office Visit [facility] MEDICINE [address] [place] [address] Sharon Lopez MD [address] [place] [address] documented as of this encounter Visit Diagnoses Diagnosis Bartholin gland cyst Cyst of Bartholin's gland documented in this encounter Care Teams Instrument Repairer Steam Plant Relationship Specialty Start Date End Date Linda Damon MD [address] [place] [address] PCP - General Family Medicine 12/14/20 07/15/22 Sharon Lopez MD [address] [place] [address] PCP - General Internal Medicine 07/16/22 documented as of this encounter
--- OUTSIDE RECORDS SUMMARY | 2025-01-24 22:25 | XMS_ITS | Encounter Summary ---
Author Organization [employer] Address [address] [place] [address] 7 [place] [address] Care Team Providers Care Engine Tester Name Role Phone Sharon Lopez MD Primary Care Pro vider Encounter Details Date Type Department Care Team ([facility] st Contact Info) Description 08/25/2024 Telephone [facility] MEDICINE 230 [place], [place] [phone] Sharon Lopez MD 230 [place], [place] [phone] Social History Tobacco Use Types Packs/Day Years [...] Care Team (Late st Contact Info) Description 04/06/2025 10:45 AM EST Office Visit [facility] MEDICINE [address] [place] [address] Sharon Lopez MD [address] [place] [address] documented as of this encounter Goals Goal Patient Goal Type Associated Problems Recent Progress Patient-Stated? Author Blood Pressure < 140/90 Blood Pressure 120/66(2023 2:32 PM EDT) No Jorge Terrell, PharmD Hemoglobin A1c < 7 Result Component 8(04/26/2024 12:00 AM EDT) No Jorge Terrell, PharmD documented as of this encounter Visit Diagnoses Not on filedocumented in this encounter Additional Health Concerns Assessment Noted Time PHQ-9 Depression Total Score: 14 023 10:55 AM EDT documented as of this encounter Care Teams Engine Tester Relationship Specialty Start Date End Date Sharon Lopez MD [address] [place] [address] PCP - General Internal Medicine 07/16/22 documented as of this encounter
--- OUTSIDE RECORDS SUMMARY | 2025-01-24 22:25 | XMS_ITS | Encounter Summary ---
Author Organization [employer] Address [address] [place] [address] [place] [address] Care Team Providers Care Finishing Frame Runner Name Role Phone Sharon Lopez MD Primary Care Pro vider Reason for Visit * Reason Comments Med Refill Encounter Details Date Type Department Care Team ([facility] st Contact Info) Description 01/04/2025 Refill [facility] MEDICINE [address] [place], [place] [phone] Sharon Lopez MD 230 [place], [place] [phone] Type 2 diabetes mellitus with hyperglycemia, with long-term current use of insulin (HCC) Social History Tobacco Use Types Packs/Day Years [...] encounter Miscellaneous Notes * Telephone Encounter - Sharon Peña MD - 01/12/2025 3:36 PM EST Med sent already * Telephone Encounter - Marion Mcmahan RN - 01/12/2025 10:55 AM EST Telephone call placed to [facility] End[facility] again. Spoke with LIDIA Cody who states they were unaware that pt was on Farxiga. No mention of it anywhere in her chart in their system. Vicshe is getting Farxiga 10mg daily. Glo states will send message to pt's security assurance specialist requesting they advise if it should be discontinued or if she will take over prescribing. * Telephone Encounter - Marion Mcmahan RN - 01/10/2025 9:49 AM EST Telephone call placed to [facility] Endocrinology. No answer, left detailed v/m for LIDIA Sanders with my direct ext for returned call. Ill retask to call again if no returned call. Please can you follow w her security assurance specialist office From last Endo note they dont mention about farxiga Please ask endo to continue with refill of med if planned to continue medication if pt is actually taking Thanks documented in this encounter Plan of Treatment Upcoming Encounters Date Type Department Care Team (Late st Contact Info) Description 04/06/2025 10:45 AM EST Office Visit [facility] MEDICINE [address] [place] [address] Sharon Lopez MD [address] [place] [phone] documented as of this encounter Goals Goal [...] hyperglycemia, with long-term current use of insulin (HCC) documented in this encounter Additional Health Concerns Assessment Noted Time PHQ-9 Depression Total Score: 14 023 10:55 AM EDT documented as of this encounter Care Teams Finishing Frame Runner Relationship Specialty Start Date End Date Sharon Lopez MD [address] [place] [address] PCP - General Internal Medicine 07/16/22 documented as of this encounter
--- OUTSIDE RECORDS SUMMARY | 2025-01-24 22:25 | XMS_ITS | Encounter Summary ---
Author Organization [employer] Address [address] [place] [address] Care Team Providers Care Inspector Pawnshop Detail Name Role Phone Sharon Lopez MD Primary Care Pro vider Reason for Visit * Reason Onset Date Comments Med Refill 11/17/2023 Encounter Details Date Type Department Care Team ([facility] st Contact Info) Description 11/17/2023 Telephone [facility] MEDICINE [address] [place], [place] [phone] Sharon Lopez MD [address] [place], [place] [phone] Med Refill Social History Tobacco Use Types [...] MG/0.5ML solution pen-injector To be sent to: [facility] - [place], [place] - [address] [place] [address] documented in this encounter Plan of Treatment Upcoming Encounters Date Type Department Care Team (Late st Contact Info) Description 04/06/2025 10:45 AM EST Office Visit [facility] MEDICINE [address] [place] [address] Sharon Lopez MD [address] [place], [place] [phone] documented as of this encounter Goals Goal [...] documented as of this encounter Care Teams Inspector Pawnshop Detail Relationship Specialty Start Date End Date Sharon Lopez MD [address] [place] [phone] PCP - General Internal Medicine 07/16/22 documented as of this encounter
--- OUTSIDE RECORDS SUMMARY | 2025-01-24 22:25 | XMS_ITS | Encounter Summary ---
Author Organization [employer] Address [address] [place] [address] [place] [address] Care Team Providers Care Castings Trimmer Name Role Phone Sharon Lopez MD Primary Care Pro vider Reason for Visit * Reason Onset Date Comments Triage 07/16/2022 Encounter Details Date Type Department Care Team ([facility] st Contact Info) Description 07/16/2022 Telephone [facility] MEDICINE [address] [place], [place] [phone] Sharon Lopez MD [address] [place] [address] Triage Social History Tobacco Use Types Packs/Day [...] No answer LVM to return call to [facility] triage line. Protocol Used: No Contact or Duplicate Contact Call (Adult) Protocol-Based Disposition: No Contact Call Positive Triage Question: * Message left on identified voicemail * All higher-acuity triage questions were negative * Telephone Encounter - Izabel Mosley RN - 07/16/2022 3:10 PM EDT Call returned to patient for triage. No answer LVM to return call to [facility] triage line. Left [facility] opearting hours as well. Protocol Used: [...] The caller accepted this outcome Patient speaks haitian. documented in this encounter Plan of Treatment Upcoming Encounters Date Type Department Care Team (Late st Contact Info) Description 04/06/2025 10:45 AM EST Office Visit [facility] MEDICINE [address] [place] [phone] Sharon Lopez MD [address] [place] [phone] documented as of this encounter Visit Diagnoses Not on filedocumented in this encounter Additional Health Concerns Assessment Noted Time PHQ-9 Depression Total Score: 2 06/01/19 23 9:31 AM EDT documented as of this encounter Care Teams Castings Trimmer Relationship Specialty Start Date End Date Sharon Lopez MD [address] [place] [phone] PCP - General Internal Medicine 5/30/23 documented as of this encounter
--- OUTSIDE RECORDS SUMMARY | 2025-01-24 22:25 | XMS_ITS | Clinical Summary ---
Author Organization [employer] Address [address] [place] [address] 7t [place] [address] Care Team Providers Care Hybrid Tester Name Role Phone Sharon Lopez MD [...] As needed for GERD every 8 hours 27362 mL 023 Active Continuous Blood Gluc Sensor (FreeStyle An 2 Sensor) [facility] USE TO MONITOR INTERSTITIAL GLUCOSE CUATRO VECES [...] by mouth daily with 37.5 mg capsule (VOV=753.5 mg) for 2 weeks Active venlafaxine (Effexor) 37.5 MG tablet TOME RAMEZ TABLETA POR V A ORAL TODOS LOS D (WITH 75MG) 023 Active insulin lispro (HumaLOG) 100 UNIT/ML injectionIndica tions:Type 2 diabetes mellitus with hyperglycemia, with long-term current use of insulin (HCC) INJECT 4UNITS POR SUBCUTANEA 3VECES AL KAYLEE [...] NEEDED FOR CONSTIPATION 180 capsule 024 Active famotidine (Pepcid) 40 MG tablet TAKE 1 TABLET BY MOUTH AT BEDTIME 90 tablet 1 025 Active cholecalciferol (D3 Super Strength) 50 MCG (1999 UT) capsule Take 1 capsule (50 mcg) by mouth in the morning. 90 capsule 025 Active pantoprazole (ProtoNix) 40 MG EC tablet TAKE 1 TABLET BY MOUTH EVERY MORNING 90 tablet 5 4:23 PM EST 11/21/2 025 Active Myrbetriq 25 MG 24 hr tablet TAKE 1 TABLET BY MOUTH EVERY MORNING 90 tablet 5 4:23 PM EST Active lisinopril 10 MG tablet TAKE 1 TABLET BY MOUTH EVERY MORNING 90 tablet 5 4:23 PM EST Active atorvastatin (Lipitor) 80 MG tablet TAKE 1 TABLET BY MOUTH EVERY MORNING 90 tablet 5 4:23 PM EST Active dapagliflozin (Farxiga) 10 MGIndications:T ype 2 diabetes mellitus with hyperglycemia, with long-term current use of insulin ([facility]) TAKE 1 TABLET BY MOUTH EVERY EVENING 30 tablet 3 5 4:23 PM EST Active dapagliflozin (Farxiga) 10 MGIndications:T ype 2 diabetes mellitus with hyperglycemia, with long-term current use of insulin ([facility]) TAKE 1 TABLET BY MOUTH EVERY EVENING 30 tablet 3 025 2024 Discontinued(R yaw (will not trigger notification to Pharmacy)) pantoprazole (ProtoNix) 40 MG EC tablet Take 1 tablet (40 mg) by mouth before breakfast. 90 tablet 025 2024 Discontinued Myrbetriq 25 MG 24 hr tablet TAKE 1 TABLET BY MOUTH EVERY MORNING 90 tablet 025 2024 Discontinued lisinopril 10 MG tablet TAKE 1 TABLET BY MOUTH EVERY MORNING 90 tablet 025 2024 Discontinued atorvastatin (Lipitor) 80 MG tablet TAKE 1 TABLET BY MOUTH EVERY MORNING 90 tablet 025 2024 Discontinued Active Problems Problem Noted Date Diagnosed Date Abdominal pain 07/24/2023 Hyperalgesia 07/24/2023 Severe obesity (BMI 35.0-39.9) with comorbidity ([facility]) 11/27/2022 11/27/2022 Hypoglycemia due to insulin 11/27/2022 [...] Encounters Date Type Department Care Team Description 01/11/2025 Refill [facility] MEDICINE [address] [place] [address] Sharon Lopez MD Type 2 diabetes mellitus with hyperglycemia, with long-term current use of insulin ([facility]) 01/10/2025 Telephone [facility] [address] [place] [address] Mell Phillip [place] 01/07/2025 Refill [facility] [address] [place] [address] Sharon Lopez MD 01/04/2025 Refill [facility] [address] [place] [address] Sharon Lopez MD Type 2 diabetes mellitus with hyperglycemia, with long-term current use of insulin ([facility]) 12/14/2024 Refill [facility] [address] [place] [address] Sharon Lopez MD from Last 3 Months [...] is your housing situation today? I have priceeddie cheema 09/10/[address] you [...] Description 04/06/2025 10:45 AM EST Office Visit [facility] MED[facility]INE [address] [place] [address] [phone] Sharon Lopez MD [address] [place], [place] [phone] Health Maintenance Due Date Last Done Comments CT Colonography 1965 Colonoscopy 1965 Colorectal Cancer Screening 1965 FIT DNA/Cologuard 1963 FIT 1965 FOBT 1965 Sigmoidoscopy 1965 Disability Screening 1963 Diabetes: Foot Exam 1973 Alcohol/Substance Use Screening 1975 Hepatitis A Vaccines (1 of 2 - Risk 2-dose series) 1982 RSV Patients and Patients Aged 60 years or older (1 - Risk 50-74 years 1-dose series) 2013 Depression Monitoring 04/25/2023 10/25/2022, 023 Zoster Vaccines (2 of 2) 06/10/2023 04/15/2023 Diabetes: Urine Protein Screening 10/26/2023 10/25/2022, 12/14/2020, 12/14/2020, Additional history exists Diabetes: Hemoglobin A1C 07/27/2024 025, 07/24/2023, 02/11/2023, Additional history exists Lipid Panel 08/26/2024 08/27/2023, 09/0 09/2022, 12/14/2020, Additional history exists COVID-19 Vaccine ( season) 2024 Influenza Vaccine (#1) 2024 10/25/2022 Mammogram 11/08/2024 11/08/2022, 06/09/2020 Tobacco Screening 07/22/2025 07/22/2024 SDOH Screening 09/10/2025 09/10/2024 Eye Exam 07/22/2026 07/22/2024, 06/0 06/2024, 07/22/2024, Additional history exists Cervical Cancer Screening 09/01/2028 HPV/Cotest 09/01/2028 09/02/2023 Pap Smear 09/01/2028 09/02/2023 DTaP/Tdap/Td Vaccines (2 - Td or Tdap) 10/25/2032 10/25/2022 HIV Screening Completed 10/25/2022 Pneumococcal Vaccine: 50+ Years Completed 10/25/2022 Hepatitis [...] 8(04/26/2024 12:00 AM EDT) No Jorge Terrell, Paul Help patients manage their type 2 diabetes Care Plan Help patients manage their type 2 diabetes Dinah Hayes LPN Weekly blood pressure task Care Plan Weekly blood pressure task No Dinah Vazquez LPN Help patients manage their type 2 diabetes Care Plan Help patients manage their type 2 diabetes No Dinah Vazquez LPN Patient has chronic kidney disease Care Plan Patient has chronic kidney disease No Dinah Vazquez LPN Weekly blood pressure task Care Plan Weekly blood pressure task No Dinah Vazquez LPN Patient has chronic kidney disease Care Plan Patient has chronic kidney disease No Dinah Vazquez LPN Weekly blood pressure task Care Plan Weekly blood pressure task No Marion Mcmahan, LIDIA Weekly blood pressure task Care Plan Weekly blood pressure task No Marion Mcmahan, LIDIA Patient has chronic kidney disease Care Plan Patient has chronic kidney disease No Marion Mcmahan RN Patient has chronic kidney disease Care Plan Patient has chronic kidney disease No [place] Mcmahan, RN Weekly blood pressure task Care Plan Weekly blood pressure task No Mell Phillip [place] Weekly blood pressure task Care Plan Weekly blood pressure task No Mell Phillip [place] Patient has chronic kidney disease Care Plan Patient has chronic kidney disease No Mell Phillip [place] Patient has chronic kidney disease Care Plan Patient has chronic kidney disease No Mell Phillip [place] Weekly blood pressure task Care Plan Weekly blood pressure task No Dinah Alonso PharmD Weekly blood pressure task Care Plan Weekly blood pressure task No Dinah Alonso PharmD Patient has chronic kidney disease Care Plan Patient has chronic kidney disease No Dinah Alonso PharmD Patient has chronic kidney disease Care Plan Patient has chronic kidney disease No Dinah Alonso PharmD Procedures Procedure Name Priority Date/Time Associated Diagnosis Comments GLUCOSE, WHOLE BLOOD Routine 11/26/2024 1:42 PM EDT HM HEMOGLOBIN A1C Routine 04/26/2024 THINPREP IMAGING PAP AND HPV MRNA E6/E7 Routine 09/02/2023 2:56 PM EDT LIPID PANEL, STANDARD Routine 08/27/2023 11:42 AM EDT BI MAMMOGRAM SCREENING TOMOSYNTHESIS BILATERAL Routine 11/08/2022 1:00 PM EDT ALBUMIN, RANDOM URINE W/CREATININE Routine 10/25/2022 12:44 PM EDT Health care maintenance HIV ANTIBODY/ANTIGEN ([facility]) Routine 10/25/2022 12:29 PM EDT from Last 3 Months or Most Recently Relevant to Health Maintenance Results * (ABNORMAL) Glucose, Whole Blood (11/26/2024 1:42 PM EDT) Pathologist [facility] Glucose, Whole Blood 240(H) 60 - 115 mg/dL [facility] Comment:METER #: [id number] 0Testing performed in the Endocrinology Department [address] , [address], [facility]. 11/26/2024 1:42 PM EDT 11/26/2024 1:46 PM EDT Generic External Data Provider LAB BLOOD ORDERAB LES Final Result Performing Organization Address [facility]/ZIP Co de Phone Number [facility] [address] [place] [address] [phone] * (ABNORMAL) Hemoglobin A1c (04/26/2024) [facility] Hemoglobin A1C 8.0(A) 4.0 - 5.7 % [facility] Historical Provider HEALTH MAINTENANCE Final Result Performing Organization Address [facility]/ZIP Co de Phone Number [facility] [address] [place] [address] [phone] * ThinPrep Imaging Pap and HPV mRNA E6/E7 (09/02/2023 2:56 PM EDT) Pathologist [facility] HPV nRNA E6/E7 Not Detected Not Detected [facility] Comment:Methodology: Transcr iption-Mediated AmplificationThis assay detects E6/E7 viral messenger RNA (mRNA) from 14high-risk HPV types (16,18,31,33,35,39,45,51,52,56,58,59,66,68).Cervical sources are required for HPV testing.If a vaginal source from a patient who has had atotal hysterectomy with removal of cervix wassubmitted, please contact the testing laboratoryfor alternative testing options.For additional information, please refer tohttp://education.[employer]/faq/KTO352b0(This link if provided for information/educational purposes only.)THIS TEST WAS PERFORMED AT:[employer] [address] [id number] DOZIER MD SOURCE: SEE NOTE [facility] Comment:None given Report Status: [facility] Clinical Information: SEE NOTE [facility] Comment:None given LMP: SEE NOTE [facility] Comment:NONE GIVEN Prev. PAP: SEE NOTE [facility] Comment:NONE GIVEN Prev. BX: SEE NOTE [facility] Comment:NONE GIVEN Statement Of Adequacy: SEE NOTE [facility] Comment:Satisfactory for ella luation.Endocervical/transformation zone componentpresent. General Categorization: [facility] Interpretation/Result: SEE NOTE [facility] Comment:Cytology Results: Ne gative for intraepitheliallesion or malignancy. Cytology Comment SEE NOTE [facility] Comment:This Pap test has be en evaluated with computerassisted technology. Kitchen Clerk: SEE NOTE [facility] Comment:RXB, CT(ASCP)CT scre ening location: [address] [address] Review Kitchen Clerk: [facility] Pathologist [facility] PAP Infection [facility] See Note SEE NOTE [facility] Comment:EXPLANATORY NOTE:The Pap is a screening test for cervical cancer. It isnot a diagnostic test and is subject to false negativeand false positive results. It is most reliable when asatisfactory sample, regularly obtained, is submittedwith relevant clinical findings and history, and whenthe Pap result is evaluated along with historic andcurrent clinical information. 09/02/2023 2:56 PM EDT 09/02/2023 4:50 PM EDT Narrative [facility] - 09/10/2023 2:42 PM EDT SEE SCANNED RESULTS IN EMRRCERVIX Mariya Licona [facility] PATHOLOGY ORDERABLES Final Result Performing Organization Address [facility] Co de Phone Number [facility] [address] [place] [address] [phone] * (ABNORMAL) Lipid Panel, Standard (08/27/2023 11:42 AM EDT) Triglycerides 139 <150 mg/dL [facility] Comment:Desirable Triglyceri de: less than 150 mg/dLBorderline High Triglyceride 150-199 mg/dLHigh Triglyceride: 200-499 mg/dLVery High Triglyceride: greater than or equal to 5OO mg/dL Cholesterol 194 <200 mg/dL [facility] Comment:Desirable Cholestero l: less than 200 mg/dLBorderline High Cholesterol: 200-239 mg/dLHigh Cholesterol: greater than 239 mg/dL LDL Cholesterol Calculated 120(H) <100 mg/dL [facility] Comment:Desirable LDL: less than 100 mg/dLNear Optimal/Above Optimal LDL: 110- 129 mg/dLBorderline High LDL: 130-159 mg/dLHigh LDL: 160-189 mg/dLVery High LDL: greater than or equal to 190 mg/dL HDL Cholesterol 47 >40 mg/dL [facility] Comment:Desirable HDL: great er than 40 mg/dL Note: This HDL assay may give artificially low results in patients with liver disease. 08/27/2023 11:4 2 AM EDT 08/27/2023 11:42 AM EDT Generic External Data Provider LAB BLOOD ORDERAB LES Final Result Performing Organization Address City/[facility]/ZIP Co de Phone Number [facility] [address] [place] [address] [phone] * BI Mammogram Screening Tomosynthesis Bilateral (11/08/2022 1:00 PM EDT) Anatomical Region Laterality Modality Breast Bilateral Mammography 11/08/2022 1:00 PM EDT Narrative 11/17/2022 10:37 PM EDT [facility] [address] [place] [address] Mammography Report Signed Patient: Aminata Mcmahan MR#: [id number] 90 : 1965 Acct:[id number] Age/Sex: 57 / F ADM Date: 11/08/22 Loc: [facility] Attending Dr: Sharon Peña MD Ordering Physician: Sharon Lopez MD Re sults: 1Negative Date of Service: 11/08/22 Follow Up: 1 Year From Orig inal Mammogram Procedure(s): MM tomosynthesis screening BI Accession Number(s): [id number] cc: Sharon Lopez MD EXAMINATION: MM SCREENING [...] signed by Gabbi Carpio MD in OV> 11/17/222232 DD/ 1300 TD/TT: Flare Breaker: Procedure Note Donotuseinterpreter, Image - 11/17/2022 [facility] [address] [place] [address] [place] [address] Mammography Report Signed Patient: Aminata McmahanMR#: [id number] 90 : 1965Acct:[id number] Age/Sex: 57 / FADM Date: 11/08/22 Loc: [facility] Attending Dr: Sharon Peña MD Ordering Physician: Sharon Lopez sults: 1Negative Date of Service: 11/08/22Follow Up: 1 Year From Orig ina Mammogram Procedure(s): MM tomosynthesis screening BI Accession Number(s): [id number] cc: Sharon Lopez MD EXAMINATION: MM SCREENING [...] in OV> 11/17/22 2233 DD/ 1300 TD/TT: Flare Breaker: us Sharon Peña MD IMG BI PROCEDURES Final Result * Albumin, Random Urine W/Creatinine (10/25/2022 12:44 PM EDT) Creatinine, Urine 117.70 mg/dL [facility] Microalbumin Urine 9.0 mg/L [facility] Microalbum Creatinine Ratio Ur 7.6 <30 ug/mg cr [facility] Comment:Albumin/Creatinine R atio Reference Ranges: Normal: < 30 ug/mg creatinine Microalbuminuria: 30 - 300 ug/mg creatinineClinical Albuminuria: > 300 ug/mg creatinine Urine 10/25/2022 12:4 4 PM EDT 10/25/2022 1:04 PM EDT us Sharon Peña MD LAB URINE ORDERAB LES Final Result Performing Organization Address [facility]/RUST de Phone Number [facility] [address] [place] [address] [phone] * HIV Ab/Ag ([facility]) (10/25/2022 12:29 PM EDT) [facility] HIV AB/AG Nonreactive Nonreactive [facility] Comment:HIV-1 p24 Ag and/or HIV-1/HIV-2 Ab not detected.A test result that is nonreactive does not exclude thepossibility of exposure to or infection with HIV-1 and/orHIV-2. Nonreactive results in this assay for individualswith prior exposure to HIV-1 and/or HIV-2 may be due toantigen and antibody levels that are below the limit ofdetection of this assay.The Sense[employer] HIV Ag/Ab Combo assay result andsupplemental assay results should be interpreted inconjunction with the patient's clinical presentation,history and other laboratory results. If the results areinconsistent with clinical evidence, additional testing issuggested to confirm the result. 10/25/2022 12:2 9 PM EDT 10/25/2022 1:02 PM EDT us Sharon Peña MD LAB BLOOD ORDERAB LES Final Result Performing Organization Address [facility] Co de Phone Number [facility] [address] [place] [address] [phone] from Last 3 Months or Most Recently Relevant to Health Maintenance Additional Health Concerns Active Problems Noted Date Diagnosed Date Help patients manage their type 2 diabetes 01/07 Weekly blood pressure task 01/07/2025 Help patients manage their type 2 diabetes 01/07 Patient has chronic kidney disease 01/07/2025 Weekly blood pressure task 01/07/2025 Patient has chronic kidney disease 01/07/2025 Weekly blood pressure task 01/10/2025 Weekly blood pressure task 01/10/2025 Patient has chronic kidney disease 01/10/2025 Patient has chronic kidney disease 01/10/2025 Weekly blood pressure task 01/10/2025 Weekly blood pressure task 01/10/2025 Patient has chronic kidney disease 01/10/2025 Patient has chronic kidney disease 01/10/2025 Weekly blood pressure task 01/11/2025 Weekly blood pressure task 01/11/2025 Patient has chronic kidney disease 01/11/2025 Patient has chronic kidney disease 01/11/2025 Insurance C3 Care Teams Hybrid Tester Relationship Specialty Start Date End Date Sharon Lopez MD [address] [place] [phone] PCP - General Internal Medicine 07/16/22
--- OUTSIDE RECORDS SUMMARY | 2025-01-24 22:25 | XMS_ITS | Encounter Summary ---
Author Organization [employer] Address [address] [place] [address] 7t [place] [address] Care Team Providers Care Engineering Aid Name Role Phone Linda Damon MD Primary Care Provider Sharon Lopez MD Primary Care Pro vider Reason for Visit * Reason Comments Med Refill Encounter Details Date Type Department Care Team (Late st Contact Info) Description 06/25/2022 Refill [facility] [address] [place], [place] [phone] Linda Damon MD [address] [place] [address] Gastroesophageal reflux disease, unspecified whether esophagitis present [...] Description 04/06/2025 10:45 AM EST Office Visit [facility] [address] [place] [address] Sharon Lopez MD [address] [place] [address] documented as of this encounter Visit Diagnoses Diagnosis Gastroesophageal reflux disease, unspecified whether esophagitis present documented in this encounter Additional Health Concerns Assessment Noted Time PHQ-9 Depression Total Score: 2 06/01/19 23 9:31 AM EDT documented as of this encounter Care Teams Engineering Aid Relationship Specialty Start Date End Date Linda Damon MD [address] [place] [phone] PCP - General Family Medicine 12/14/20 07/15/22 Sharon Lopez MD [address] [place] [phone] PCP - General Internal Medicine 07/16/22 documented as of this encounter
--- OUTSIDE RECORDS SUMMARY | 2025-01-24 22:26 | XMS_ITS | Encounter Summary ---
Author Organization [employer] Address [address] [place] [address] Care Team Providers Care Protohistorian Name Role Phone Sharon Lopez MD Primary Care Pro vider Reason for Visit * Reason Onset Date Comments Appointment Request 08/26/2022 Encounter Details Date Type Department Care Team ([facility] st Contact Info) Description 08/26/2022 Telephone [facility] MEDICINE [address] [place], [place] [phone] Sharon Lopez MD [address] [place] [address] Appointment Request Social History Tobacco Use Types [...] schedule TP appointment. States she missed 08/23. 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 Please contact pt daughter at [phone] documented in this encounter Plan of Treatment Upcoming Encounters Date Type Department Care Team (Late st Contact Info) Description 04/06/2025 10:45 AM EST Office Visit [facility] [address] [place] [address] Sharon Lopez MD [address] [place] [address] documented as of this encounter Visit Diagnoses Not on filedocumented in this encounter Additional Health Concerns Assessment Noted Time PHQ-9 Depression Total Score: 2 06/01/19 23 9:31 AM EDT documented as of this encounter Care Teams Protohistorian Relationship Specialty Start Date End Date Sharon Lopez MD [address] [place] [address] [phone] PCP - General Internal Medicine 07/16/22 documented as of this encounter
--- OUTSIDE RECORDS SUMMARY | 2025-01-24 22:26 | XMS_ITS | Encounter Summary ---
Author Organization [employer] Address [address] [place] [address] [place] [address] Care Team Providers Care Osteologist Name Role Phone Sharon Lopez MD Primary Care Pro vider Reason for Visit * Reason Comments Med Refill Encounter Details Date Type Department Care Team ([facility] st Contact Info) Description 06/26/2023 Refill [facility] [address], [place] [phone] Sharon Lopez MD [address], [place] [phone] Type 2 diabetes mellitus with hyperglycemia, with long-term current use of insulin ([facility]) Social History Tobacco Use Types [...] Description 04/06/2025 10:45 AM EST Office Visit [facility] [address] [place] [phone] Sharon Lopez MD [address] [place] [phone] documented as of this encounter Goals Goal Patient Goal Type Associated Problems Recent Progress Patient-Stated? Author Blood Pressure < 140/90 Blood Pressure 120/66(2023 2:32 PM EDT) No Jorge Terrell, PharmKelly Hemoglobin A1c < 7 Result Component 8(04/26/2024 12:00 AM EDT) No Jorge Terrell, LashawnD documented as of this encounter Visit Diagnoses Diagnosis Type 2 diabetes mellitus with hyperglycemia, with long-term current use of insulin (HCC) documented in this encounter Additional Health Concerns Assessment Noted Time PHQ-9 Depression Total Score: 14 023 10:55 AM EDT documented as of this encounter Care Teams Osteologist Relationship Specialty Start Date End Date Sharon Lopez MD [address] [place] [phone] PCP - General Internal Medicine 07/16/22 documented as of this encounter
== END 2025-01-24 14:15 | disposition home or self-care (01) ==
LOC: HO.ENCR 13:39
PROVIDERS: PCP Student in an Organized Health Care Education/Training Program; Visit Provider Registered Nurse Diabetes Educator
DX: E11.65 Type 2 diabetes mellitus with hyperglycemia (principal)

== ENCOUNTER → 2025-01-24 13:38 | Outpatient (BNVA) | payer MEDICAID, SELFPAY | PROVIDERS: PCP Student in an Organized Health Care Education/Training Program; Visit Provider Registered Nurse Diabetes Educator | DX: E11.65 Type 2 diabetes mellitus with hyperglycemia (principal); Z79.4 Long term (current) use of insulin | CPT/HCPCS: 99211 ==